=== PATIENT | male | born 1950 | race Caucasian/White ===

== ENCOUNTER 2016-09-17 08:55 | Emergency (ER) | payer MEDICARE, MEDICAID ==
[~2016-09-17 08:55] MED LIST: /ALEN70TA OR; /LAMO15TA OR; /LAMO20TA OR; /MOM400 PO; ACET50TA PO; AMLO10TA OR; BUSP10TA2 OR; CENTTAB16 PO; COLA50CA3 PO; HYDR25TA6 OR; LACOSAMIDE PO; LORA1TAB OR; MULTIVIT PO; OYST500T OR; PAXI20TA3 PO; POTA10TA7 PO; PROZ20CA OR; RISP4TAB33 PO; SPIR25TA2 OR; SYNT50TA PO; TOPI100T OR; XALATAN OU; [UNRECOGNIZED DRUG - CODE] TOP; [UNRECOGNIZED DRUG - OTHER] PO
[2016-09-17 09:42] LABS: BASO % 0.6 % (0.0-1.0); EOS # 0.2 K/mm3 (0.0-0.50); EOS % 3.4 % (0.0-3.0); LARGE UNSTAINED CELL # 0.2 K/mm3 (0.0-0.4); LARGE UNSTAINED CELL % 2.3 % (0.0-4.0); LYMPH % 25.3 % (24.0-44.0); MEAN CORPUSCULAR HEMOGLOBIN 28.6 pg (27.0-33.0); MEAN CORPUSCULAR HGB CONC 31.5 g/dl (32.0-36.5); MEAN CORPUSCULAR VOLUME 90.6 fl (80.0-96.0); MONO # 0.4 K/mm3 (0.0-0.8); MONO % 5.9 % (0.0-5.0); NEUTROPHILS # 4.6 K/mm3 (1.8-7.7); NEUTROPHILS % 62.4 % (36.0-66.0); PLATELET COUNT, AUTOMATED 220 k/mm3 (150-450); RED CELL DISTRIBUTION WIDTH 14.3 % (11.5-14.5); WHITE BLOOD COUNT 7.3 K/mm3 (4.0-10.0)
[2016-09-17] MEDS ORDERED: LORazepam 2 MG/ML VIAL (J2060) As Ordered ONE (09:47)
[2016-09-17 09:57] LABS: ANION GAP 10 MEQ/L (8-16); BLOOD UREA NITROGEN 14 MG/DL (7-18); CALCIUM LEVEL 8.5 MG/DL (8.8-10.2); CARBON DIOXIDE LEVEL 21 MEQ/L (21-32); CHLORIDE LEVEL 109 MEQ/L (98-107); CREATININE FOR GFR 0.78 MG/DL (0.70-1.30); GLOMERULAR FILTRATION RATE > 60.0 (>49); GLUCOSE, FASTING 91 MG/DL (80-110); POTASSIUM SERUM 3.7 MEQ/L (3.5-5.1); SODIUM LEVEL 140 MEQ/L (136-145)
--- NOTE | 2016-09-17 10:30 | REP ---
Head CT without contrast: History: Seizure activity. Comparison head CT study July 07, 2013. Findings: Digital lateral water filterer radiograph is unremarkable. Bone window settings demonstrate an intact bony calvarium. No intraorbital abnormality is seen. There is no CT evidence of significant paranasal sinus disease. Vascular calcification is noted in the carotid siphons and distal vertebral arteries. There is mild diffuse cerebral and moderate diffuse cerebellar atrophy again noted unchanged from the July 07, 2013 prior study. There is no evidence of intracranial hemorrhage. No extra-axial fluid collection, mass, infarct or midline shift is seen. Impression: Moderate cerebellar atrophy again noted. Vascular calcification. No acute intracranial abnormality. Signed by He Watson MD 09/17/2016 02:05 P
--- NOTE | 2016-09-17 11:00 | EDDOCDS ---
Physician Documentation [facility] Name: Paul Terrell Age: 66 yrs Sex: Male : 1950 Arrival Date: 09/17/2016 Time: 08:55 Bed 10 Private MD: Tony Busby NC Disposition: 09/17/16 10:49 Discharged to Home/Self Care. 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 - Condition is Stable. - Discharge Instructions: Seizure, Adult, [id number]. - Prescriptions for Tranxene T- Tab 3.75 mg Oral tablet - take 1 tablet by ORAL route 2 times per day; 10 tablet. - Medication Reconciliation, Local Pharmacy Hours form. - Follow up: Agnes Wright; When: 2 - 3 days; Reason: Further diagnostic work-up, Recheck today's complaints, Continuance of care. - Problem is an acute exacerbation. - Symptoms are unchanged. Historical: - Allergies: Risperdal (hypothermia); - Home Meds: 1. Lamictal 200 mg Oral tab 1 tab once daily 2. Lamictal 100 mg Oral tab 300 mg nightly 3. Topamax 100 mg Oral tab 3 tabs twice a day 4. Xalatan 0.005 % Opht drop 1 drop once daily 5. calcium lactate 500 mg Oral cap daily 6. Fosamax 70 mg Oral tab 1 tab once wkly 7. spironolactone 25 mg Oral tab 1 tab 2 times per day 8. Norvasc 10 mg Oral tab 1 tab once daily 9. potassium chloride 10 mEq Oral cpER 1 cap 2 times per day 10. Paxil 20 mg Oral tab 1 tab once daily 11. Synthroid 62.5mcg Oral once daily - PMHx: Seizure Disorder; Glaucoma; Osteoporosis; Hypertension; Depression; Hypothyroidism; - PSHx: Unable to obtain; - Social history: Smoking status: Patient uses tobacco products, light tobacco smoker. The patient speaks a little Trinidadian. - Family history: Not pertinent. - : The pt / caregiver states he / she is not on anticoagulants. Home medication list is obtained from the facility NOV. - Exposure Risk Screening:: None identified. Vital Signs: 09/17 09:07 BP 151 / 88 (auto/); pml 09:09 BP 151 / 88; Pulse 81; Resp 18; Temp 97.5(TE); Pulse Ox 98% on R/A; Height 4 ft. 6 in. ct3 (137.16 cm) (R); Pain 0/10; 09:09 Pulse 78 MON; Pulse Ox 97% ; pml 09:37 BP 142 / 76 (auto/); pml 09:38 Pulse 68 MON; Pulse Ox 99% ; pml 10:07 Pulse 72 MON; Pulse Ox 98% ; pml 10:07 BP 139 / 70 (auto/); pml 10:37 Pulse 72 MON; Pulse Ox 97% ; pml 10:37 BP 157 / 86 (auto/); pml 10:54 Pulse 65; Resp 18; Temp 97.6(TE); Pulse Ox 97% on R/A; ct3 MDM: 09:19 IV Saline Lock ordered. ml 09:19 Seizure Precautions ordered. ml 09:20 CBC with Diff Ordered. EDMS 09:20 MED Profile Ordered. EDMS 09:20 Lamotrigine,Lamictal Ordered. EDMS 09:40 CT Head Without Contrast Ordered. EDMS 09:44 LORazepam 0.5 mg IVP once ordered. btw 09:47 CBC with Diff Reviewed. btw 10:04 [facility] Payment Agreement was scanned into [employer] and attached to record. dm19 10:04 Financial registration complete. dm19 10:16 MED Profile Reviewed. btw Administered Medications: 09:49 Drug: LORazepam 0.5 mg [lorazepam 2 mg/mL injection solution (0.25 mL)] Route: IVP; pml Site: left hand; Signatures: Dispatcher [employer]Host EDNJ Osbaldo Hernandez MD MD ml Wolfenden, Brandon, PA PA btw Genet Santacruz RN RN pml McLear, Diane dm19 The chart was reviewed and I authenticate all verbal orders and agree with the evaluation and treatment provided.Attachments: 10:04 [facility] Payment Agreement dm19 MTDD
--- NOTE | 2016-09-17 11:00 | EDDOCDS ---
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 Adult Sepsis Screening: The patient does not have new or worsening altered mentation. Patient's respiratory rate is less than 22. Systolic blood pressure is greater than 100. Patient has a qSOFA score of 0- Negative Sepsis Screen. Suicide/Homicide risk assessment- the patient denies having any suicidal and/or homicidal ideations and does not present with any other emotional, behavioral or mental health complaints. Status: Patient is not a program services planner or dependent. Transition of care: patient was not received from another setting of care. 08:57 Acuity: JESSIE Level 3 pml 08:57 Method Of Arrival: Ambulance pml Triage Assessment: 09:13 General: Appears in no apparent distress, Behavior is appropriate for age, cooperative. pml Pain: Denies pain. The patient is triaged at the bedside. See Assessment in Nurses Notes section of ED record. Neurological: Level of Consciousness is awake, alert, Oriented to person, place, time. Neurological: Gill Box Fixer are equal bilaterally Facial symmetry appears normal, Pupils are PERRLA. Cardiovascular: Capillary refill < 3 seconds. Respiratory: Airway is patent Respiratory effort is even, unlabored. GI: Abdomen is non- distended. Derm: Skin is pink, warm & dry. Historical: - Allergies: Risperdal (hypothermia); - Home Meds: 1. Lamictal 200 mg Oral tab 1 tab once daily 2. Lamictal 100 mg Oral tab 300 mg nightly 3. Topamax 100 mg Oral tab 3 tabs twice a day 4. Xalatan 0.005 % Opht drop 1 drop once daily 5. calcium lactate 500 mg Oral cap daily 6. Fosamax 70 mg Oral tab 1 tab once wkly 7. spironolactone 25 mg Oral tab 1 tab 2 times per day 8. Norvasc 10 mg Oral tab 1 tab once daily 9. potassium chloride 10 mEq Oral cpER 1 cap 2 times per day 10. Paxil 20 mg Oral tab 1 tab once daily 11. Synthroid 62.5mcg Oral once daily - PMHx: Seizure Disorder; Glaucoma; Osteoporosis; Hypertension; Depression; Hypothyroidism; - PSHx: Unable to obtain; - Social history: Smoking status: Patient uses tobacco products, light tobacco smoker. The patient speaks a little Georgian. - Family history: Not pertinent. - : The pt / caregiver states he / she is not on anticoagulants. Home medication list is obtained from the facility MAR. - Exposure Risk Screening:: None identified. Screenin:14 Screening information is obtained from the patient. Fall risk: No risks identified. pml Assistance ADL's: requires no assistance with activities of daily living. Abuse/DV Screen: The patient / caregiver reports he/she is: not in a situation that causes fear, pain or injury. Nutritional screening: No deficits noted. Advance Directives: Currently, there is no health care proxy. home support is adequate. Assessment: 09:14 General: see triage note. pml 10:48 General: Appears in no apparent distress, comfortable, Behavior is appropriate for age, pml cooperative. Pain: Denies pain. Neurological: Level of Consciousness is awake, alert, Oriented to person, place, time. Cardiovascular: Capillary refill < 3 seconds. Respiratory: Airway is patent Respiratory effort is even, unlabored. GI: Abdomen is non- distended. Derm: Skin is pink, warm & dry. Vital Signs: 09:07 BP 151 / 88 (auto/); pml 09:09 BP 151 / 88; Pulse 81; Resp 18; Temp 97.5(TE); Pulse Ox 98% on R/A; Height 4 ft. 6 in. ct3 (137.16 cm) (R); Pain 0/10; 09:09 Pulse 78 MON; Pulse Ox 97% ; pml 09:37 BP 142 / 76 (auto/); pml 09:38 Pulse 68 MON; Pulse Ox 99% ; pml 10:07 Pulse 72 MON; Pulse Ox 98% ; pml 10:07 BP 139 / 70 (auto/); pml 10:37 Pulse 72 MON; Pulse Ox 97% ; pml 10:37 BP 157 / 86 (auto/); pml 10:54 Pulse 65; Resp 18; Temp 97.6(TE); Pulse Ox 97% on R/A; ct3 Vitals: 09:13 Log In Time N/A - ambulance arrival. pml ED Course: 08:56 Patient visited by Stefany Arellano PCA. ar3 08:56 Genet Santacruz RN is Primary Nurse. ar3 08:56 Tony Busby is Private Physician. ar3 08:56 Patient moved to Waiting ar3 08:56 Patient moved to 10 ar3 09:00 Triage Initiated pml 09:09 Accompanied by Caregiver, Patient has correct armband on for positive identification. ct3 Placed in gown. Bed in low position. Call light in reach. Side rails up X2. vascular ultrasound technician on. Pulse ox on. NIBP on. 09:11 Patient visited by Evita Sewell PCA. ct3 09:14 The patient / caregiver is instructed regarding the plan of care and ED course. Seizure pml precautions initiated. 09:14 Maintain field IV. Dressing intact. Good blood return noted. Site clean & dry. Gauge & pml site: 20g left hand. 09:15 Patient visited by Genet Santacruz RN. pml 09:34 Librado Will PA is PHCP. btw 09:34 Osbaldo Hernandez MD is Attending Physician. btw 09:34 Patient visited by Librado Will PA. btw 10:04 [facility] Payment Agreement was scanned into [employer] and attached to record. dm19 10:07 Patient visited by Evita Sewell PCA. ct3 10:11 Patient name changed from Paul\S\\S\Terrell\S\ to Paul\S\H\S\Terrell. EDMS 10:48 Agnes Wright is Referral Physician. btw 10:49 Patient visited by Genet Santacruz RN. pml 10:55 Patient visited by Evita Sewell PCA. ct3 10:56 CT Head Without Contrast Returned. EDMS 10:58 Discontinued lock intact, bleeding controlled, pressure dressing applied, No pml redness/swelling at site. No procedures done that require assistance. Administered Medications: 09:49 Drug: LORazepam 0.5 mg [lorazepam 2 mg/mL injection solution (0.25 mL)] Route: IVP; pml Site: left hand; Order Results: Lab Order: CBC with Diff; SPEC'M 09/17/16 09:29 Test: WHITE BLOOD COUNT; Value: 7.3; Range: 4.0-10.0; Units: K/mm3; Status: F Test: RED BLOOD COUNT; Value: 4.62; Range: 4.30-6.10; Units: M/mm3; Status: F Test: HEMOGLOBIN; Value: 13.2; Range: 14.0-18.0; Abnormal: Below low normal; Units: g/dl; Status: F Test: HEMATOCRIT; Value: 41.9; Range: 42.0-52.0; Abnormal: Below low normal; Units: %; Status: F Test: MEAN CORPUSCULAR VOLUME; Value: 90.6; Range: 80.0-96.0; Units: fl; Status: F Test: MEAN CORPUSCULAR HEMOGLOBIN; Value: 28.6; Range: 27.0-33.0; Units: pg; Status: F Test: MEAN CORPUSCULAR HGB CONC; Value: 31.5; Range: 32.0-36.5; Abnormal: Below low normal; Units: g/dl; Status: F Test: RED CELL DISTRIBUTION WIDTH; Value: 14.3; Range: 11.5-14.5; Units: %; Status: F Test: PLATELET COUNT, AUTOMATED; Value: 220; Range: 150-450; Units: k/mm3; Status: F Test: NEUTROPHILS %; Value: 62.4; Range: 36.0-66.0; Units: %; Status: F Test: LYMPH %; Value: 25.3; Range: 24.0-44.0; Units: %; Status: F Test: MONO %; Value: 5.9; Range: 0.0-5.0; Abnormal: Above high normal; Units: %; Status: F Test: EOS %; Value: 3.4; Range: 0.0-3.0; Abnormal: Above high normal; Units: %; Status: F Test: BASO %; Value: 0.6; Range: 0.0-1.0; Units: %; Status: F Test: LARGE UNSTAINED CELL %; Value: 2.3; Range: 0.0-4.0; Units: %; Status: F Test: NEUTROPHILS #; Value: 4.6; Range: 1.8-7.7; Units: K/mm3; Status: F Test: LYMPH #; Value: 2.0; Range: 1.5-4.5; Units: K/mm3; Status: F Test: MONO #; Value: 0.4; Range: 0.0-0.8; Units: K/mm3; Status: F Test: EOS #; Value: 0.2; Range: 0.0-0.50; Units: K/mm3; Status: F Test: BASO #; Value: 0.0; Range: 0.0-0.2; Units: K/mm3; Status: F Test: LARGE UNSTAINED CELL #; Value: 0.2; Range: 0.0-0.4; Units: K/mm3; Status: F Lab Order: MED Profile; SPEC'M 09/17/16 09:29 Test: GLUCOSE, FASTING; Value: 91; Range: 80-110; Units: MG/DL; Status: F Test: BLOOD UREA NITROGEN; Value: 14; Range: 7-18; Units: MG/DL; Status: F Test: CREATININE FOR GFR; Value: 0.78; Range: 0.70-1.30; Units: MG/DL; Status: F Test: GLOMERULAR FILTRATION RATE; Value: > 60.0; Range: >49; Status: F Test: SODIUM LEVEL; Value: 140; Range: 136-145; Units: MEQ/L; Status: F Test: POTASSIUM SERUM; Value: 3.7; Range: 3.5-5.1; Units: MEQ/L; Status: F Test: CHLORIDE LEVEL; Value: 109; Range: 98-107; Abnormal: Above high normal; Units: MEQ/L; Status: F Test: CARBON DIOXIDE LEVEL; Value: 21; Range: 21-32; Units: MEQ/L; Status: F Test: ANION GAP; Value: 10; Range: 8-16; Units: MEQ/L; Status: F Test: CALCIUM LEVEL; Value: 8.5; Range: 8.8-10.2; Abnormal: Below low normal; Units: MG/DL; Status: F Test Note: ; Units are mL/min/1.73 m2 Chronic Kidney Disease Staging per NKF: Stage I & II GFR >=60 Normal to Mildly Decreased Stage III GFR 30-59 Moderately Decreased Stage IV GFR 15-29 Severely Decreased Stage V GFR <15 Very Little GFR Left ESRD GFR <15 on POLICE LIAISON Radiology Order: CT Head Without Contrast Test: CT Head Without Contrast REASON FOR EXAMINATION: seizure activity with recent changes; Head CT without contrast:; ; History: Seizure activity.; ; Comparison head CT study July 07, 2013.; ; Findings: Digital lateral cavalry scout radiograph is unremarkable. Bone window; settings demonstrate an intact bony calvarium. No intraorbital abnormality is; seen. There is no CT evidence of significant paranasal sinus disease. Vascular; calcification is noted in the carotid siphons and distal vertebral arteries.; ; There is mild diffuse cerebral and moderate diffuse cerebellar atrophy again; noted unchanged from the July 07, 2013 prior study. There is no evidence of; intracranial hemorrhage. No extra-axial fluid collection, mass, infarct or; midline shift is seen.; ; Impression:; ; Moderate cerebellar atrophy again noted. Vascular calcification. No acute; intracranial abnormality.; ; ; ; ; Unreviewed; Outcome: 10:49 Discharge ordered by Provider. btw 10:58 Discharge Assessment: Patient awake, alert and oriented x 3. No cognitive and/or pml functional deficits noted. Patient verbalized understanding of disposition instructions. patient administered narcotics - yes. Pt provided with safe discharge. The following High Risk Discharge criteria are identified: None. Discharged to home ambulatory, with [facility] staff. Condition: good Condition: stable. Discharge instructions given to patient, Instructed on discharge instructions, follow up and referral plans. medication usage, Demonstrated understanding of instructions, medications, Pt was receptive of discharge instructions/ teaching. Prescriptions given X 1. No special radiology studies were completed. Property sent home with patient. 11:00 Patient left the ED. pml Signatures: Dispatcher [employer] EDMS Stefany Arellano, DELINQUENT ACCOUNT CLERK DELINQUENT ACCOUNT CLERK ar3 Librado Will PA PA btw Evita Sewell, DELINQUENT ACCOUNT CLERK DELINQUENT ACCOUNT CLERK ct3 Genet Santacruz RN RN Cata Palmer dm19 Corrections: (The following items were deleted from the chart) 09:11 09:09 BP 151 / 88; Pulse 81bpm; Resp 18bpm; Pulse Ox 98% RA; Temp 97.5F Temporal; Pain ct3 0/10; ct3 MTDD
--- NOTE | 2016-09-20 10:52 | EDDOCDS ---
Physician Documentation [facility] Name: Paul Terrell Age: 66 yrs Sex: Male : 1950 Arrival Date: 09/17/2016 Time: 08:55 Bed 10 Private MD: Tony Busby NC Disposition: 09/17/16 10:49 Discharged to Home/Self Care. 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 - Condition is Stable. - Discharge Instructions: Seizure, Adult, [id number]. - Prescriptions for Tranxene T- Tab 3.75 mg Oral tablet - take 1 tablet by ORAL route 2 times per day; 10 tablet. - Medication Reconciliation, Local Pharmacy Hours form. - Follow up: Agnes Wright; When: 2 - 3 days; Reason: Further diagnostic work-up, Recheck today's complaints, Continuance of care. - Problem is an acute exacerbation. - Symptoms are unchanged. Historical: - Allergies: Risperdal (hypothermia); - Home Meds: 1. Lamictal 200 mg Oral tab 1 tab once daily 2. Lamictal 100 mg Oral tab 300 mg nightly 3. Topamax 100 mg Oral tab 3 tabs twice a day 4. Xalatan 0.005 % Opht drop 1 drop once daily 5. calcium lactate 500 mg Oral cap daily 6. Fosamax 70 mg Oral tab 1 tab once wkly 7. spironolactone 25 mg Oral tab 1 tab 2 times per day 8. Norvasc 10 mg Oral tab 1 tab once daily 9. potassium chloride 10 mEq Oral cpER 1 cap 2 times per day 10. Paxil 20 mg Oral tab 1 tab once daily 11. Synthroid 62.5mcg Oral once daily - PMHx: Seizure Disorder; Glaucoma; Osteoporosis; Hypertension; Depression; Hypothyroidism; - PSHx: Unable to obtain; - Social history: Smoking status: Patient uses tobacco products, light tobacco smoker. The patient speaks a little Cypriot. - Family history: Not pertinent. - : The pt / caregiver states he / she is not on anticoagulants. Home medication list is obtained from the facility NOV. - Exposure Risk Screening:: None identified. Vital Signs: 09/17 09:07 BP 151 / 88 (auto/); pml 09:09 BP 151 / 88; Pulse 81; Resp 18; Temp 97.5(TE); Pulse Ox 98% on R/A; Height 4 ft. 6 in. ct3 (137.16 cm) (R); Pain 0/10; 09:09 Pulse 78 MON; Pulse Ox 97% ; pml 09:37 BP 142 / 76 (auto/); pml 09:38 Pulse 68 MON; Pulse Ox 99% ; pml 10:07 Pulse 72 MON; Pulse Ox 98% ; pml 10:07 BP 139 / 70 (auto/); pml 10:37 Pulse 72 MON; Pulse Ox 97% ; pml 10:37 BP 157 / 86 (auto/); pml 10:54 Pulse 65; Resp 18; Temp 97.6(TE); Pulse Ox 97% on R/A; ct3 MDM: 09:19 IV Saline Lock ordered. ml 09:19 Seizure Precautions ordered. ml 09:20 CBC with Diff Ordered. EDMS 09:20 MED Profile Ordered. EDMS 09:20 Lamotrigine,Lamictal Ordered. EDMS 09:40 CT Head Without Contrast Ordered. EDMS 09:44 LORazepam 0.5 mg IVP once ordered. btw 09:47 CBC with Diff Reviewed. btw 10:04 [facility] Payment Agreement was scanned into [employer] and attached to record. dm19 10:04 Financial registration complete. dm19 10:16 MED Profile Reviewed. btw 11:48 T-Sheet-- Draft Copy was scanned into [employer] and attached to record. seh 14:13 PCR was scanned into [employer] and attached to record. gb Administered Medications: 09:49 Drug: LORazepam 0.5 mg [lorazepam 2 mg/mL injection solution (0.25 mL)] Route: IVP; pml Site: left hand; Signatures: Dispatcher [employer] EDMS Osbaldo Hernandez MD MD ml Barnhardt, Gloria, Reg Reg Librado Harris PA PA btw Genet Santacruz RN RN pml Hoffert, Sarah seh McLear, Diane dm19 The chart was reviewed and I authenticate all verbal orders and agree with the evaluation and treatment provided.Attachments: 10:04 [facility] Payment Agreement dm19 11:48 T-Sheet-- Draft Copy se Chart Complete MTDD
--- NOTE | 2016-09-20 10:52 | EDDOCDS ---
Physician Documentation [facility] Name: Paul Terrell Age: 66 yrs Sex: Male : 1950 Arrival Date: 09/17/2016 Time: 08:55 Bed 10 Private MD: Tony Busby NC Disposition: 09/17/16 10:49 Discharged to Home/Self Care. 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 - Condition is Stable. - Discharge Instructions: Seizure, Adult, [id number]. - Prescriptions for Tranxene T- Tab 3.75 mg Oral tablet - take 1 tablet by ORAL route 2 times per day; 10 tablet. - Medication Reconciliation, Local Pharmacy Hours form. - Follow up: Agnes Wright; When: 2 - 3 days; Reason: Further diagnostic work-up, Recheck today's complaints, Continuance of care. - Problem is an acute exacerbation. - Symptoms are unchanged. Historical: - Allergies: Risperdal (hypothermia); - Home Meds: 1. Lamictal 200 mg Oral tab 1 tab once daily 2. Lamictal 100 mg Oral tab 300 mg nightly 3. Topamax 100 mg Oral tab 3 tabs twice a day 4. Xalatan 0.005 % Opht drop 1 drop once daily 5. calcium lactate 500 mg Oral cap daily 6. Fosamax 70 mg Oral tab 1 tab once wkly 7. spironolactone 25 mg Oral tab 1 tab 2 times per day 8. Norvasc 10 mg Oral tab 1 tab once daily 9. potassium chloride 10 mEq Oral cpER 1 cap 2 times per day 10. Paxil 20 mg Oral tab 1 tab once daily 11. Synthroid 62.5mcg Oral once daily - PMHx: Seizure Disorder; Glaucoma; Osteoporosis; Hypertension; Depression; Hypothyroidism; - PSHx: Unable to obtain; - Social history: Smoking status: Patient uses tobacco products, light tobacco smoker. The patient speaks a little Italian. - Family history: Not pertinent. - : The pt / caregiver states he / she is not on anticoagulants. Home medication list is obtained from the facility NOV. - Exposure Risk Screening:: None identified. Vital Signs: 09/17 09:07 BP 151 / 88 (auto/); pml 09:09 BP 151 / 88; Pulse 81; Resp 18; Temp 97.5(TE); Pulse Ox 98% on R/A; Height 4 ft. 6 in. ct3 (137.16 cm) (R); Pain 0/10; 09:09 Pulse 78 MON; Pulse Ox 97% ; pml 09:37 BP 142 / 76 (auto/); pml 09:38 Pulse 68 MON; Pulse Ox 99% ; pml 10:07 Pulse 72 MON; Pulse Ox 98% ; pml 10:07 BP 139 / 70 (auto/); pml 10:37 Pulse 72 MON; Pulse Ox 97% ; pml 10:37 BP 157 / 86 (auto/); pml 10:54 Pulse 65; Resp 18; Temp 97.6(TE); Pulse Ox 97% on R/A; ct3 MDM: 09:19 IV Saline Lock ordered. ml 09:19 Seizure Precautions ordered. ml 09:20 CBC with Diff Ordered. EDMS 09:20 MED Profile Ordered. EDMS 09:20 Lamotrigine,Lamictal Ordered. EDMS 09:40 CT Head Without Contrast Ordered. EDMS 09:44 LORazepam 0.5 mg IVP once ordered. btw 09:47 CBC with Diff Reviewed. btw 10:04 [facility] Payment Agreement was scanned into [employer] and attached to record. dm19 10:04 Financial registration complete. dm19 10:16 MED Profile Reviewed. btw 11:48 T-Sheet-- Draft Copy was scanned into [employer] and attached to record. seh 14:13 PCR was scanned into [employer] and attached to record. gb Administered Medications: 09:49 Drug: LORazepam 0.5 mg [lorazepam 2 mg/mL injection solution (0.25 mL)] Route: IVP; pml Site: left hand; Signatures: Dispatcher [employer] EDMS Osbaldo Hernandez MD MD ml Barnhardt, Gloria, Reg Reg Librado Harris PA PA btw Genet Santacruz RN RN pml Hoffert, Sarah seh McLear, Diane dm19 The chart was reviewed and I authenticate all verbal orders and agree with the evaluation and treatment provided.Attachments: 10:04 [facility] Payment Agreement dm19 11:48 T-Sheet-- Draft Copy se Chart Complete MTDD
--- NOTE | 2016-09-20 10:52 | EDDOCDS ---
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 Adult Sepsis Screening: The patient does not have new or worsening altered mentation. Patient's respiratory rate is less than 22. Systolic blood pressure is greater than 100. Patient has a qSOFA score of 0- Negative Sepsis Screen. Suicide/Homicide risk assessment- the patient denies having any suicidal and/or homicidal ideations and does not present with any other emotional, behavioral or mental health complaints. Status: Patient is not a manager administrative services or dependent. Transition of care: patient was not received from another setting of care. 08:57 Acuity: JESSIE Level 3 pml 08:57 Method Of Arrival: Ambulance pml Triage Assessment: 09:13 General: Appears in no apparent distress, Behavior is appropriate for age, cooperative. pml Pain: Denies pain. The patient is triaged at the bedside. See Assessment in Nurses Notes section of ED record. Neurological: Level of Consciousness is awake, alert, Oriented to person, place, time. Neurological: [employer] Exchange Administrator are equal bilaterally Facial symmetry appears normal, Pupils are PERRLA. Cardiovascular: Capillary refill < 3 seconds. Respiratory: Airway is patent Respiratory effort is even, unlabored. GI: Abdomen is non- distended. Derm: Skin is pink, warm & dry. Historical: - Allergies: Risperdal (hypothermia); - Home Meds: 1. Lamictal 200 mg Oral tab 1 tab once daily 2. Lamictal 100 mg Oral tab 300 mg nightly 3. Topamax 100 mg Oral tab 3 tabs twice a day 4. Xalatan 0.005 % Opht drop 1 drop once daily 5. calcium lactate 500 mg Oral cap daily 6. Fosamax 70 mg Oral tab 1 tab once wkly 7. spironolactone 25 mg Oral tab 1 tab 2 times per day 8. Norvasc 10 mg Oral tab 1 tab once daily 9. potassium chloride 10 mEq Oral cpER 1 cap 2 times per day 10. Paxil 20 mg Oral tab 1 tab once daily 11. Synthroid 62.5mcg Oral once daily - PMHx: Seizure Disorder; Glaucoma; Osteoporosis; Hypertension; Depression; Hypothyroidism; - PSHx: Unable to obtain; - Social history: Smoking status: Patient uses tobacco products, light tobacco smoker. The patient speaks a little Romansh. - Family history: Not pertinent. - : The pt / caregiver states he / she is not on anticoagulants. Home medication list is obtained from the facility MAR. - Exposure Risk Screening:: None identified. Screenin:14 Screening information is obtained from the patient. Fall risk: No risks identified. pml Assistance ADL's: requires no assistance with activities of daily living. Abuse/DV Screen: The patient / caregiver reports he/she is: not in a situation that causes fear, pain or injury. Nutritional screening: No deficits noted. Advance Directives: Currently, there is no health care proxy. home support is adequate. Assessment: 09:14 General: see triage note. pml 10:48 General: Appears in no apparent distress, comfortable, Behavior is appropriate for age, pml cooperative. Pain: Denies pain. Neurological: Level of Consciousness is awake, alert, Oriented to person, place, time. Cardiovascular: Capillary refill < 3 seconds. Respiratory: Airway is patent Respiratory effort is even, unlabored. GI: Abdomen is non- distended. Derm: Skin is pink, warm & dry. Vital Signs: 09:07 BP 151 / 88 (auto/); pml 09:09 BP 151 / 88; Pulse 81; Resp 18; Temp 97.5(TE); Pulse Ox 98% on R/A; Height 4 ft. 6 in. ct3 (137.16 cm) (R); Pain 0/10; 09:09 Pulse 78 MON; Pulse Ox 97% ; pml 09:37 BP 142 / 76 (auto/); pml 09:38 Pulse 68 MON; Pulse Ox 99% ; pml 10:07 Pulse 72 MON; Pulse Ox 98% ; pml 10:07 BP 139 / 70 (auto/); pml 10:37 Pulse 72 MON; Pulse Ox 97% ; pml 10:37 BP 157 / 86 (auto/); pml 10:54 Pulse 65; Resp 18; Temp 97.6(TE); Pulse Ox 97% on R/A; ct3 Vitals: 09:13 Log In Time N/A - ambulance arrival. pml ED Course: 08:56 Patient visited by Stefany Arellano PCA. ar3 08:56 Genet Santacruz RN is Primary Nurse. ar3 08:56 Tony Busby is Private Physician. ar3 08:56 Patient moved to Waiting ar3 08:56 Patient moved to 10 ar3 09:00 Triage Initiated pml 09:09 Accompanied by Caregiver, Patient has correct armband on for positive identification. ct3 Placed in gown. Bed in low position. Call light in reach. Side rails up X2. lunchroom monitor on. Pulse ox on. NIBP on. 09:11 Patient visited by Evita Sewell PCA. ct3 09:14 The patient / caregiver is instructed regarding the plan of care and ED course. Seizure pml precautions initiated. 09:14 Maintain field IV. Dressing intact. Good blood return noted. Site clean & dry. Gauge & pml site: 20g left hand. 09:15 Patient visited by Genet Santacruz RN. pml 09:34 Librado Will PA is PHCP. btw 09:34 Osbaldo Hernandez MD is Attending Physician. btw 09:34 Patient visited by Librado Will PA. btw 10:04 [facility] Payment Agreement was scanned into [employer] and attached to record. [id number] 10:07 Patient visited by Evita Sewell PCA. ct3 10:11 Patient name changed from Paul\S\\S\Terrell\S\ to Paul\S\H\S\Terrell. EDMS 10:48 Agnes Wright is Referral Physician. btw 10:49 Patient visited by Genet Santacruz RN. pml 10:55 Patient visited by Evita Sewell PCA. ct3 10:56 CT Head Without Contrast Returned. EDMS 10:58 Discontinued lock intact, bleeding controlled, pressure dressing applied, No pml redness/swelling at site. No procedures done that require assistance. 11:48 T-Sheet-- Draft Copy was scanned into [employer] and attached to record. seh 14:13 PCR was scanned into [employer] and attached to record. gb Administered Medications: 09:49 Drug: LORazepam 0.5 mg [lorazepam 2 mg/mL injection solution (0.25 mL)] Route: IVP; pml Site: left hand; Order Results: Lab Order: CBC with Diff; SPEC'M 09/17/16 09:29 Test: WHITE BLOOD COUNT; Value: 7.3; Range: 4.0-10.0; Units: K/mm3; Status: F Test: RED BLOOD COUNT; Value: 4.62; Range: 4.30-6.10; Units: M/mm3; Status: F Test: HEMOGLOBIN; Value: 13.2; Range: 14.0-18.0; Abnormal: Below low normal; Units: g/dl; Status: F Test: HEMATOCRIT; Value: 41.9; Range: 42.0-52.0; Abnormal: Below low normal; Units: %; Status: F Test: MEAN CORPUSCULAR VOLUME; Value: 90.6; Range: 80.0-96.0; Units: fl; Status: F Test: MEAN CORPUSCULAR HEMOGLOBIN; Value: 28.6; Range: 27.0-33.0; Units: pg; Status: F Test: MEAN CORPUSCULAR HGB CONC; Value: 31.5; Range: 32.0-36.5; Abnormal: Below low normal; Units: g/dl; Status: F Test: RED CELL DISTRIBUTION WIDTH; Value: 14.3; Range: 11.5-14.5; Units: %; Status: F Test: PLATELET COUNT, AUTOMATED; Value: 220; Range: 150-450; Units: k/mm3; Status: F Test: NEUTROPHILS %; Value: 62.4; Range: 36.0-66.0; Units: %; Status: F Test: LYMPH %; Value: 25.3; Range: 24.0-44.0; Units: %; Status: F Test: MONO %; Value: 5.9; Range: 0.0-5.0; Abnormal: Above high normal; Units: %; Status: F Test: EOS %; Value: 3.4; Range: 0.0-3.0; Abnormal: Above high normal; Units: %; Status: F Test: BASO %; Value: 0.6; Range: 0.0-1.0; Units: %; Status: F Test: LARGE UNSTAINED CELL %; Value: 2.3; Range: 0.0-4.0; Units: %; Status: F Test: NEUTROPHILS #; Value: 4.6; Range: 1.8-7.7; Units: K/mm3; Status: F Test: LYMPH #; Value: 2.0; Range: 1.5-4.5; Units: K/mm3; Status: F Test: MONO #; Value: 0.4; Range: 0.0-0.8; Units: K/mm3; Status: F Test: EOS #; Value: 0.2; Range: 0.0-0.50; Units: K/mm3; Status: F Test: BASO #; Value: 0.0; Range: 0.0-0.2; Units: K/mm3; Status: F Test: LARGE UNSTAINED CELL #; Value: 0.2; Range: 0.0-0.4; Units: K/mm3; Status: F Lab Order: MED Profile; SPEC'M 09/17/16 09:29 Test: GLUCOSE, FASTING; Value: 91; Range: 80-110; Units: MG/DL; Status: F Test: BLOOD UREA NITROGEN; Value: 14; Range: 7-18; Units: MG/DL; Status: F Test: CREATININE FOR GFR; Value: 0.78; Range: 0.70-1.30; Units: MG/DL; Status: F Test: GLOMERULAR FILTRATION RATE; Value: > 60.0; Range: >49; Status: F Test: SODIUM LEVEL; Value: 140; Range: 136-145; Units: MEQ/L; Status: F Test: POTASSIUM SERUM; Value: 3.7; Range: 3.5-5.1; Units: MEQ/L; Status: F Test: CHLORIDE LEVEL; Value: 109; Range: 98-107; Abnormal: Above high normal; Units: MEQ/L; Status: F Test: CARBON DIOXIDE LEVEL; Value: 21; Range: 21-32; Units: MEQ/L; Status: F Test: ANION GAP; Value: 10; Range: 8-16; Units: MEQ/L; Status: F Test: CALCIUM LEVEL; Value: 8.5; Range: 8.8-10.2; Abnormal: Below low normal; Units: MG/DL; Status: F Test Note: ; Units are mL/min/1.73 m2 Chronic Kidney Disease Staging per NKF: Stage I & II GFR >=60 Normal to Mildly Decreased Stage III GFR 30-59 Moderately Decreased Stage IV GFR 15-29 Severely Decreased Stage V GFR <15 Very Little GFR Left ESRD GFR <15 on INLAYER SILVER Radiology Order: CT Head Without Contrast Test: CT Head Without Contrast REASON FOR EXAMINATION: seizure activity with recent changes; Head CT without contrast:; ; History: Seizure activity.; ; Comparison head CT study July 07, 2013.; ; Findings: Digital lateral research nurse practitioner radiograph is unremarkable. Bone window; settings demonstrate an intact bony calvarium. No intraorbital abnormality is; seen. There is no CT evidence of significant paranasal sinus disease. Vascular; calcification is noted in the carotid siphons and distal vertebral arteries.; ; There is mild diffuse cerebral and moderate diffuse cerebellar atrophy again; noted unchanged from the July 07, 2013 prior study. There is no evidence of; intracranial hemorrhage. No extra-axial fluid collection, mass, infarct or; midline shift is seen.; ; Impression:; ; Moderate cerebellar atrophy again noted. Vascular calcification. No acute; intracranial abnormality.; ; ; Signed by; He Watson MD 09/17/2016 02:05 P; Outcome: 10:49 Discharge ordered by Provider. btw 10:58 Discharge Assessment: Patient awake, alert and oriented x 3. No cognitive and/or pml functional deficits noted. Patient verbalized understanding of disposition instructions. patient administered narcotics - yes. Pt provided with safe discharge. The following High Risk Discharge criteria are identified: None. Discharged to home ambulatory, with [facility] staff. Condition: good Condition: stable. Discharge instructions given to patient, Instructed on discharge instructions, follow up and referral plans. medication usage, Demonstrated understanding of instructions, medications, Pt was receptive of discharge instructions/ teaching. Prescriptions given X 1. No special radiology studies were completed. Property sent home with patient. 11:00 Patient left the ED. pml Signatures: Dispatcher [employer] EDMS Candice Coronado, Reg Reg gb Stefany Arellano, WARDROBE CUSTODIAN WARDROBE CUSTODIAN ar3 Librado Will PA PA btw Evita Sewell, WARDROBE CUSTODIAN WARDROBE CUSTODIAN ct3 Addison,Genet,RN RN Araceli Mobley Diane [id number] Corrections: (The following items were deleted from the chart) :11 09:09 BP 151 / 88; Pulse 81bpm; Resp 18bpm; Pulse Ox 98% RA; Temp 97.5F Temporal; Pain ct3 0/10; ct3 Chart Complete MTDD
== END 2016-09-17 11:00 | disposition home or self-care (01) ==
LOC: M ED 08:55
DX: G40.209 Localization-related (focal) (partial) symptomatic epilepsy and epileptic syndromes with complex partial seizures, not intractable, without status epilepticus (principal); I10 Essential (primary) hypertension; F32.9 Major depressive disorder, single episode, unspecified; E03.9 Hypothyroidism, unspecified; M81.0 Age-related osteoporosis without current pathological fracture; H40.9 Unspecified glaucoma; Z79.899 Other long term (current) drug therapy; Z88.8 Allergy status to other drugs, medicaments and biological substances; F17.210 Nicotine dependence, cigarettes, uncomplicated
CPT/HCPCS: 70450; 80048; 80175; 85025; 96374; 99284; J2060

== ENCOUNTER → 2016-11-28 | Outpatient (CLI) | payer MEDICARE, MEDICAID ==
[2016-11-28 13:08] LABS: BASO % 0.4 % (0.0-1.0); EOS # 0.3 K/mm3 (0.0-0.50); EOS % 4.3 % (0.0-3.0); LARGE UNSTAINED CELL # 0.1 K/mm3 (0.0-0.4); LARGE UNSTAINED CELL % 1.6 % (0.0-4.0); LYMPH # 2.4 K/mm3 (1.5-4.5); LYMPH % 30.8 % (24.0-44.0); MEAN CORPUSCULAR HEMOGLOBIN 29.8 pg (27.0-33.0); MEAN CORPUSCULAR HGB CONC 33.1 g/dl (32.0-36.5); MEAN CORPUSCULAR VOLUME 90.1 fl (80.0-96.0); MONO # 0.6 K/mm3 (0.0-0.8); MONO % 7.8 % (0.0-5.0); PLATELET COUNT, AUTOMATED 230 k/mm3 (150-450); RED CELL DISTRIBUTION WIDTH 13.4 % (11.5-14.5); WHITE BLOOD COUNT 7.3 K/mm3 (4.0-10.0)
[2016-11-28 13:42] LABS: ALBUMIN 3.6 GM/DL (3.2-5.2); ALBUMIN/GLOBULIN RATIO 1.38 (1.00-1.93); ALKALINE PHOSPHATASE 102 U/L (45-117); ALT/SGPT 16 U/L (12-78); ANION GAP 7 MEQ/L (8-16); AST/SGOT 13 U/L (15-37); BILIRUBIN,TOTAL 0.2 MG/DL (0.2-1.0); BLOOD UREA NITROGEN 19 MG/DL (7-18); CALCIUM LEVEL 8.5 MG/DL (8.8-10.2); CARBON DIOXIDE LEVEL 25 MEQ/L (21-32); CHLORIDE LEVEL 108 MEQ/L (98-107); CREATININE FOR GFR 0.81 MG/DL (0.70-1.30); FREE T4 1.06 NG/DL (0.76-1.46); GLOMERULAR FILTRATION RATE > 60.0 (>49); GLUCOSE, FASTING 97 MG/DL (80-110); POTASSIUM SERUM 3.9 MEQ/L (3.5-5.1); SODIUM LEVEL 140 MEQ/L (136-145); TOTAL PROTEIN 6.2 GM/DL (6.4-8.2)
== END ==
LOC: M WUC 08:46
PROVIDERS: ATTEND Nurse Practitioner Family
DX: E03.9 Hypothyroidism, unspecified (principal); I10 Essential (primary) hypertension

== ENCOUNTER → 2016-12-06 | Outpatient (CLI) | payer MEDICARE, MEDICAID ==
[2016-12-09 00:07] LABS: TOPIRAMATE LEVEL 15.8 ug/mL (2.0-25.0)
== END ==
LOC: M WUC 16:27
PROVIDERS: ATTEND Physician Assistant Medical
DX: Z51.81 Encounter for therapeutic drug level monitoring (principal); Z79.899 Other long term (current) drug therapy; R56.9 Unspecified convulsions

== ENCOUNTER → 2017-03-29 | Outpatient (CLI) | payer MEDICARE, MEDICAID ==
[2017-03-31 14:17] LABS: TOPIRAMATE LEVEL 12.4 ug/mL (2.0-25.0)
== END ==
LOC: M WUC 08:36
PROVIDERS: ATTEND Physician Assistant Medical
DX: G40.909 Epilepsy, unspecified, not intractable, without status epilepticus (principal)

== ENCOUNTER → 2017-11-20 | Outpatient (REF) | payer MEDICARE, MEDICAID ==
[2017-11-20 13:27] LABS: TOTAL 25(OH) VITAMIN D 22.6 NG/ML (30.0-100.0)
[2017-11-20 13:28] LABS: FOLATE 21.3 NG/ML; VITAMIN B12 LEVEL 724 PG/ML
[2017-11-22 00:11] LABS: LAMOTRIGINE (LAMICTAL) 3.7 ug/mL (2.0-20.0)
[2017-11-22 00:11] LABS: TOPIRAMATE LEVEL 14.5 ug/mL (2.0-25.0)
== END ==
LOC: M LABDRWAD 12:43
DX: R53.83 Other fatigue (principal); R56.9 Unspecified convulsions
CPT/HCPCS: 82746

== ENCOUNTER 2017-12-21 18:59 | Inpatient (IN) | payer MEDICARE, MEDICAID ==
[2017-12-21] MEDS: amLODIPine 5 MG TAB PO (20:08)
[2017-12-21] MEDS: SPIRONOLACTONE 25 MG TAB PO ×2 (20:08→21:00)
[2017-12-21] MEDS: IPRATROPIUM 0.5MG/ALBUTEROL 2.5MG INH SOL UD 3ML (DUONEB)(J7620) NEB (20:15)
[2017-12-21 21:01] LABS: BASO % 0.1 % (0.0-1.0); EOS % 0.1 % (0.0-3.0); HEMATOCRIT 37.1 % (42.0-52.0); HEMOGLOBIN 12.4 g/dl (13.5-17.5); IMMATURE GRANULOCYTE % 0.5 % (0-3.0); LYMPH # 2.2 10^3/uL (1.5-4.5); LYMPH % 13.4 % (24.0-44.0); MEAN CORPUSCULAR HEMOGLOBIN 27.9 pg (27.0-33.0); MEAN CORPUSCULAR HGB CONC 33.4 g/dl (32.0-36.5); MEAN CORPUSCULAR VOLUME 83.6 fl (80.0-96.0); MONO # 1.6 10^3/uL (0.0-0.8); MONO % 9.7 % (0.0-5.0); NEUTROPHILS # 12.6 10^3/uL (1.8-7.7); NEUTROPHILS % 76.2 % (36.0-66.0); PLATELET COUNT, AUTOMATED 260 10^3/uL (150-450); RED BLOOD COUNT 4.44 10^6/uL (4.30-6.10); RED CELL DISTRIBUTION WIDTH 13.5 % (11.5-14.5); WHITE BLOOD COUNT 16.5 10^3/uL (4.0-10.0)
[2017-12-21 21:27] LABS: ABG BASE EXCESS -3.4 (-2.0-2.0); ABG HCO3 19.6 MEQ/L (22.0-26.0); ABG O2 SATURATION 91.4 % (95.0-99.0); ABG PARTIAL PRESSURE CO2 29.6 mmHg (35.0-45.0); ABG PARTIAL PRESSURE O2 59.1 mmHg (75.0-100.0); ABG STANDARD HCO3 21.5 MEQ/L (22.0-26.0); ABG TOTAL CO2 20.5 MEQ/L (23.0-31.0); ABG pH (ARTERIAL) 7.438 UNITS (7.350-7.450)
[2017-12-21 21:30] LABS: LACTIC ACID SEPSIS PROTOCOL 1.2 MMOL/L (0.4-2.0)
[2017-12-21 21:33] LABS: ALBUMIN 3.7 GM/DL (3.2-5.2); ALBUMIN/GLOBULIN RATIO 1.06 (1.00-1.93); ALKALINE PHOSPHATASE 131 U/L (45-117); ALT/SGPT 25 U/L (12-78); ANION GAP 9 MEQ/L (8-16); AST/SGOT 31 U/L (7-37); BILIRUBIN,TOTAL 0.3 MG/DL (0.2-1.0); BLOOD UREA NITROGEN 12 MG/DL (7-18); CALCIUM LEVEL 8.8 MG/DL (8.8-10.2); CARBON DIOXIDE LEVEL 21 MEQ/L (21-32); CHLORIDE LEVEL 101 MEQ/L (98-107); GLOMERULAR FILTRATION RATE > 60.0 (>49); GLUCOSE, FASTING 109 MG/DL (70-100); POTASSIUM SERUM 4.1 MEQ/L (3.5-5.1); SODIUM LEVEL 131 MEQ/L (136-145); TOTAL PROTEIN 7.2 GM/DL (6.4-8.2)
[2017-12-21] MEDS: LABETALOL HCL 100 MG/20 ML VIAL IV (21:58)
[2017-12-21] MEDS: NS 1,000 ML IV (22:23)
[2017-12-21] MEDS: methylPREDNISolone INJ 125 MG/2 ML VIAL (J2930) IV (22:23)
[2017-12-21] MEDS ORDERED: IPRATROPIUM 0.5MG/ALBUTEROL 2.5MG INH SOL UD 3ML (DUONEB)(J7620) NEB (22:30)
[2017-12-21] MEDS ORDERED: ACETAMINOPHEN TAB 650MG DOSE (2X325MG) PO (22:30)
[2017-12-21] MEDS: NICOTINE 21MG/24HR 1 EA TRANSDERMAL TD (22:47)
[2017-12-21] MEDS: PIPERACILLIN/TAZOBACTAM SOD 2.25 GM in D5W MINI-BAG PLUS 50 ML IV (22:47)
[2017-12-21] MEDS: hydrALAZINE INJ 20 MG/ML VIAL IV (22:48)
[2017-12-21 23:03] LABS: CK-MB VALUE MASS 3.4 NG/ML (<3.6); CPK CREATINE PHOSPHOKINASE 181 U/L (39-308); MB/CK RELATIVE INDEX 1.87 (< OR =4); TROPONIN I < 0.02 NG/ML (< 0.10)
[2017-12-21] MEDS ORDERED: LORazepam 2 MG/ML VIAL (J2060) As Ordered (23:30)
[2017-12-22] MEDS ORDERED: LORazepam 2 MG/ML VIAL (J2060) IV
[2017-12-22] MEDS: TOPIRAMATE (TopAMAX) 100 MG TAB PO ×3 (01:47→21:12)
[2017-12-22] MEDS: lamoTRIgine 100MG TAB PO ×3 (01:47→21:12)
[2017-12-22] MEDS: LATANOPROST 0.005% OPHTH SOLN 2.5 ML OU ×2 (01:48→21:14)
[2017-12-22] MEDS: THERAPEUTIC BATH LOTION 240 ML BTL EXT ×2 (01:48→21:14)
[2017-12-22] MEDS: CLORAZEPATE 3.75 MG TAB PO ×6 (01:48→21:12)
[2017-12-22] MEDS: NS 1,000 ML IV ×2 (01:48→10:58)
[2017-12-22] MEDS: VANCOMYCIN HCL 1,000 MG, VIAL MATE ADAPTER 1 EACH in D5W 250 ML IV ×3 (01:49→21:11)
[2017-12-22] MEDS: IPRATROPIUM 0.5MG/ALBUTEROL 2.5MG INH SOL UD 3ML (DUONEB)(J7620) NEB ×4 (02:12→20:26)
[2017-12-22] MEDS: PIPERACILLIN/TAZOBACTAM SOD 4.5 GM in D5W MINI-BAG PLUS 50 ML IV ×4 (05:14→22:55)
[2017-12-22] MEDS: hydrALAZINE INJ 20 MG/ML VIAL IV (05:14)
[2017-12-22 05:37] LABS: BASO % 0.1 % (0.0-1.0); HEMATOCRIT 35.1 % (42.0-52.0); IMMATURE GRANULOCYTE % 0.6 % (0-3.0); LYMPH # 0.8 10^3/uL (1.5-4.5); LYMPH % 5.7 % (24.0-44.0); MEAN CORPUSCULAR HEMOGLOBIN 28.1 pg (27.0-33.0); MEAN CORPUSCULAR HGB CONC 34.2 g/dl (32.0-36.5); MEAN CORPUSCULAR VOLUME 82.2 fl (80.0-96.0); MONO # 0.6 10^3/uL (0.0-0.8); MONO % 4.5 % (0.0-5.0); NEUTROPHILS # 12.5 10^3/uL (1.8-7.7); NEUTROPHILS % 89.1 % (36.0-66.0); PLATELET COUNT, AUTOMATED 242 10^3/uL (150-450); RED BLOOD COUNT 4.27 10^6/uL (4.30-6.10); RED CELL DISTRIBUTION WIDTH 13.6 % (11.5-14.5)
[2017-12-22 06:00] LABS: ANION GAP 9 MEQ/L (8-16); BLOOD UREA NITROGEN 9 MG/DL (7-18); CALCIUM LEVEL 8.5 MG/DL (8.8-10.2); CARBON DIOXIDE LEVEL 20 MEQ/L (21-32); CHLORIDE LEVEL 105 MEQ/L (98-107); CPK CREATINE PHOSPHOKINASE 150 U/L (39-308); CREATININE FOR GFR 0.64 MG/DL (0.70-1.30); GLOMERULAR FILTRATION RATE > 60.0 (>49); GLUCOSE, FASTING 140 MG/DL (70-100); POTASSIUM SERUM 3.1 MEQ/L (3.5-5.1); SODIUM LEVEL 134 MEQ/L (136-145); TROPONIN I < 0.02 NG/ML (< 0.10)
[2017-12-22 06:01] LABS: CK-MB VALUE MASS 3.7 NG/ML (<3.6); MB/CK RELATIVE INDEX 2.46 (< OR =4)
[2017-12-22] MEDS: LEVOTHYROXINE 62.5MCG PER 1/2 TAB (0.0625MG) PO (08:54)
[2017-12-22] MEDS: PARoxetine 10MG TABLET PO (08:54)
[2017-12-22] MEDS: SPIRONOLACTONE 25 MG TAB PO ×2 (08:55→21:13)
[2017-12-22] MEDS: amLODIPine 10 MG TAB PO (08:56)
[2017-12-22] MEDS: ENOXAPARIN 40 MG/0.4 ML SYRINGE (J1650) SC (08:56)
[2017-12-22] MEDS: POTASSIUM CHLORIDE 10 MEQ SR TABLET PO (10:58)
[2017-12-22] MEDS: **hydrALAZINE HCL** 25 MG TAB PO ×2 (14:00→21:13)
[2017-12-22 14:16] LABS: CK-MB VALUE MASS 4.8 NG/ML (<3.6); CPK CREATINE PHOSPHOKINASE 170 U/L (39-308); MB/CK RELATIVE INDEX 2.82 (< OR =4); TROPONIN I 0.02 NG/ML (< 0.10)
[2017-12-23] MEDS: IPRATROPIUM 0.5MG/ALBUTEROL 2.5MG INH SOL UD 3ML (DUONEB)(J7620) NEB ×4 (02:00→20:14)
[2017-12-23] MEDS: PIPERACILLIN/TAZOBACTAM SOD 4.5 GM in D5W MINI-BAG PLUS 50 ML IV ×4 (04:03→22:18)
[2017-12-23] MEDS: **hydrALAZINE HCL** 25 MG TAB PO ×3 (05:38→21:39)
[2017-12-23 06:28] LABS: BASO % 0.1 % (0.0-1.0); EOS % 0.1 % (0.0-3.0); HEMATOCRIT 36.3 % (42.0-52.0); HEMOGLOBIN 12.1 g/dl (13.5-17.5); IMMATURE GRANULOCYTE % 0.5 % (0-3.0); LYMPH # 1.6 10^3/uL (1.5-4.5); LYMPH % 10.7 % (24.0-44.0); MEAN CORPUSCULAR HEMOGLOBIN 27.4 pg (27.0-33.0); MEAN CORPUSCULAR HGB CONC 33.3 g/dl (32.0-36.5); MEAN CORPUSCULAR VOLUME 82.1 fl (80.0-96.0); MONO # 1.4 10^3/uL (0.0-0.8); MONO % 9.6 % (0.0-5.0); NEUTROPHILS # 11.4 10^3/uL (1.8-7.7); PLATELET COUNT, AUTOMATED 260 10^3/uL (150-450); RED BLOOD COUNT 4.42 10^6/uL (4.30-6.10); RED CELL DISTRIBUTION WIDTH 13.9 % (11.5-14.5); WHITE BLOOD COUNT 14.4 10^3/uL (4.0-10.0)
[2017-12-23 06:55] LABS: ANION GAP 9 MEQ/L (8-16); BLOOD UREA NITROGEN 9 MG/DL (7-18); CALCIUM LEVEL 8.2 MG/DL (8.8-10.2); CARBON DIOXIDE LEVEL 21 MEQ/L (21-32); CHLORIDE LEVEL 108 MEQ/L (98-107); CREATININE FOR GFR 0.63 MG/DL (0.70-1.30); GLOMERULAR FILTRATION RATE > 60.0 (>49); GLUCOSE, FASTING 102 MG/DL (70-100); POTASSIUM SERUM 3.2 MEQ/L (3.5-5.1); SODIUM LEVEL 138 MEQ/L (136-145); VANCOMYCIN LEVEL TROUGH 11.1 UG/ML (10.0-20.0)
[2017-12-23] MEDS: CLORAZEPATE 3.75 MG TAB PO ×4 (10:06→20:20)
[2017-12-23] MEDS: ENOXAPARIN 40 MG/0.4 ML SYRINGE (J1650) SC (10:06)
[2017-12-23] MEDS: VANCOMYCIN HCL 1,000 MG, VIAL MATE ADAPTER 1 EACH in D5W 250 ML IV ×3 (10:07→20:19)
[2017-12-23] MEDS: TOPIRAMATE (TopAMAX) 100 MG TAB PO ×2 (10:07→20:19)
[2017-12-23] MEDS: SPIRONOLACTONE 25 MG TAB PO ×2 (10:08→20:19)
[2017-12-23] MEDS: PARoxetine 10MG TABLET PO (10:08)
[2017-12-23] MEDS: POTASSIUM CHLORIDE 10 MEQ SR TABLET PO ×2 (10:08→20:20)
[2017-12-23] MEDS: amLODIPine 10 MG TAB PO (10:09)
[2017-12-23] MEDS: lamoTRIgine 100MG TAB PO ×2 (10:09→20:19)
[2017-12-23] MEDS: LEVOTHYROXINE 62.5MCG PER 1/2 TAB (0.0625MG) PO (10:15)
[2017-12-23] MEDS: LATANOPROST 0.005% OPHTH SOLN 2.5 ML OU (20:19)
[2017-12-23] MEDS: THERAPEUTIC BATH LOTION 240 ML BTL EXT (20:19)
[2017-12-23 21:04] LABS: BEDSIDE GLUCOSE 127 MG/DL (80-115)
[2017-12-24] MEDS: IPRATROPIUM 0.5MG/ALBUTEROL 2.5MG INH SOL UD 3ML (DUONEB)(J7620) NEB ×6 (01:55→23:30)
[2017-12-24] MEDS: PIPERACILLIN/TAZOBACTAM SOD 4.5 GM in D5W MINI-BAG PLUS 50 ML IV ×4 (04:14→21:14)
[2017-12-24] MEDS: **hydrALAZINE HCL** 25 MG TAB PO ×3 (06:00→21:00)
[2017-12-24 06:15] LABS: BASO % 0.3 % (0.0-1.0); EOS % 0.2 % (0.0-3.0); HEMATOCRIT 33.9 % (42.0-52.0); HEMOGLOBIN 11.1 g/dl (13.5-17.5); IMMATURE GRANULOCYTE % 0.5 % (0-3.0); LYMPH # 1.3 10^3/uL (1.5-4.5); LYMPH % 11.1 % (24.0-44.0); MEAN CORPUSCULAR HEMOGLOBIN 27.4 pg (27.0-33.0); MEAN CORPUSCULAR HGB CONC 32.7 g/dl (32.0-36.5); MEAN CORPUSCULAR VOLUME 83.7 fl (80.0-96.0); MONO # 1.2 10^3/uL (0.0-0.8); MONO % 10.2 % (0.0-5.0); NEUTROPHILS % 77.7 % (36.0-66.0); PLATELET COUNT, AUTOMATED 250 10^3/uL (150-450); RED BLOOD COUNT 4.05 10^6/uL (4.30-6.10); RED CELL DISTRIBUTION WIDTH 14.3 % (11.5-14.5); WHITE BLOOD COUNT 11.6 10^3/uL (4.0-10.0)
[2017-12-24 06:35] LABS: ANION GAP 8 MEQ/L (8-16); BLOOD UREA NITROGEN 10 MG/DL (7-18); CARBON DIOXIDE LEVEL 20 MEQ/L (21-32); CHLORIDE LEVEL 110 MEQ/L (98-107); CREATININE FOR GFR 0.69 MG/DL (0.70-1.30); GLOMERULAR FILTRATION RATE > 60.0 (>49); GLUCOSE, FASTING 101 MG/DL (70-100); POTASSIUM SERUM 3.6 MEQ/L (3.5-5.1); SODIUM LEVEL 138 MEQ/L (136-145)
[2017-12-24] MEDS: CLORAZEPATE 3.75 MG TAB PO ×4 (09:12→21:14)
[2017-12-24] MEDS: lamoTRIgine 100MG TAB PO ×3 (09:12→21:14)
[2017-12-24] MEDS: amLODIPine 10 MG TAB PO (09:12)
[2017-12-24] MEDS: ENOXAPARIN 40 MG/0.4 ML SYRINGE (J1650) SC (09:13)
[2017-12-24] MEDS: LEVOTHYROXINE 62.5MCG PER 1/2 TAB (0.0625MG) PO (09:23)
[2017-12-24] MEDS: POTASSIUM CHLORIDE 10 MEQ SR TABLET PO ×2 (09:23→21:13)
[2017-12-24] MEDS: PARoxetine 10MG TABLET PO (09:23)
[2017-12-24] MEDS: SPIRONOLACTONE 25 MG TAB PO ×2 (09:23→21:14)
[2017-12-24] MEDS: VANCOMYCIN HCL 1,000 MG, VIAL MATE ADAPTER 1 EACH in D5W 250 ML IV ×2 (09:24→19:45)
[2017-12-24] MEDS: TOPIRAMATE (TopAMAX) 100 MG TAB PO ×2 (13:05→21:13)
[2017-12-24] MEDS: LATANOPROST 0.005% OPHTH SOLN 2.5 ML OU (21:14)
[2017-12-24] MEDS: THERAPEUTIC BATH LOTION 240 ML BTL EXT (21:14)
[2017-12-25] MEDS: PIPERACILLIN/TAZOBACTAM SOD 4.5 GM in D5W MINI-BAG PLUS 50 ML IV ×4 (04:01→21:59)
[2017-12-25] MEDS: **hydrALAZINE HCL** 25 MG TAB PO ×4 (06:00→21:39)
[2017-12-25 06:14] LABS: BASO % 0.4 % (0.0-1.0); EOS % 0.4 % (0.0-3.0); HEMATOCRIT 32.3 % (42.0-52.0); HEMOGLOBIN 10.5 g/dl (13.5-17.5); IMMATURE GRANULOCYTE % 0.5 % (0-3.0); LYMPH # 1.7 10^3/uL (1.5-4.5); MEAN CORPUSCULAR HEMOGLOBIN 27.4 pg (27.0-33.0); MEAN CORPUSCULAR HGB CONC 32.5 g/dl (32.0-36.5); MEAN CORPUSCULAR VOLUME 84.3 fl (80.0-96.0); NEUTROPHILS # 5.7 10^3/uL (1.8-7.7); NEUTROPHILS % 66.7 % (36.0-66.0); PLATELET COUNT, AUTOMATED 245 10^3/uL (150-450); RED BLOOD COUNT 3.83 10^6/uL (4.30-6.10); RED CELL DISTRIBUTION WIDTH 14.5 % (11.5-14.5); WHITE BLOOD COUNT 8.5 10^3/uL (4.0-10.0)
[2017-12-25 06:34] LABS: ANION GAP 8 MEQ/L (8-16); BLOOD UREA NITROGEN 12 MG/DL (7-18); CARBON DIOXIDE LEVEL 19 MEQ/L (21-32); CHLORIDE LEVEL 115 MEQ/L (98-107); CREATININE FOR GFR 0.67 MG/DL (0.70-1.30); GLOMERULAR FILTRATION RATE > 60.0 (>49); GLUCOSE, FASTING 96 MG/DL (70-100); POTASSIUM SERUM 3.9 MEQ/L (3.5-5.1); SODIUM LEVEL 142 MEQ/L (136-145)
[2017-12-25] MEDS: IPRATROPIUM 0.5MG/ALBUTEROL 2.5MG INH SOL UD 3ML (DUONEB)(J7620) NEB ×3 (07:20→20:23)
[2017-12-25 08:28] LABS: VANCOMYCIN LEVEL TROUGH 11.7 UG/ML (10.0-20.0)
[2017-12-25] MEDS: ENOXAPARIN 40 MG/0.4 ML SYRINGE (J1650) SC (09:16)
[2017-12-25] MEDS: VANCOMYCIN HCL 1,000 MG, VIAL MATE ADAPTER 1 EACH in D5W 250 ML IV ×2 (09:16→21:59)
[2017-12-25] MEDS: POTASSIUM CHLORIDE 10 MEQ SR TABLET PO ×2 (09:17→21:37)
[2017-12-25] MEDS: CLORAZEPATE 3.75 MG TAB PO ×4 (09:17→21:59)
[2017-12-25] MEDS: SPIRONOLACTONE 25 MG TAB PO ×2 (09:17→21:37)
[2017-12-25] MEDS: amLODIPine 10 MG TAB PO (09:18)
[2017-12-25] MEDS: TOPIRAMATE (TopAMAX) 100 MG TAB PO ×2 (09:18→21:37)
[2017-12-25] MEDS: PARoxetine 10MG TABLET PO (09:21)
[2017-12-25] MEDS: LEVOTHYROXINE 62.5MCG PER 1/2 TAB (0.0625MG) PO (13:56)
[2017-12-25] MEDS: VANCOMYCIN HCL 500 MG in D5W MINI-BAG PLUS 100 ML IV (16:00)
[2017-12-25] MEDS: NICOTINE 21MG/24HR 1 EA TRANSDERMAL TD (16:39)
[2017-12-25] MEDS: LATANOPROST 0.005% OPHTH SOLN 2.5 ML OU (21:00)
[2017-12-25] MEDS: lamoTRIgine 100MG TAB PO (21:40)
[2017-12-25] MEDS: THERAPEUTIC BATH LOTION 240 ML BTL EXT (22:01)
[2017-12-26] MEDS: IPRATROPIUM 0.5MG/ALBUTEROL 2.5MG INH SOL UD 3ML (DUONEB)(J7620) NEB ×4 (02:07→22:10)
[2017-12-26] MEDS: PIPERACILLIN/TAZOBACTAM SOD 4.5 GM in D5W MINI-BAG PLUS 50 ML IV ×4 (04:20→22:11)
[2017-12-26] MEDS: **hydrALAZINE HCL** 25 MG TAB PO ×3 (05:58→20:26)
[2017-12-26 06:48] LABS: BASO # 0.1 10^3/uL (0.0-0.2); BASO % 0.6 % (0.0-1.0); EOS # 0.2 10^3/uL (0.0-0.50); EOS % 1.7 % (0.0-3.0); HEMATOCRIT 32.6 % (42.0-52.0); HEMOGLOBIN 10.5 g/dl (13.5-17.5); IMMATURE GRANULOCYTE % 0.5 % (0-3.0); LYMPH # 1.9 10^3/uL (1.5-4.5); MEAN CORPUSCULAR HEMOGLOBIN 27.1 pg (27.0-33.0); MEAN CORPUSCULAR HGB CONC 32.2 g/dl (32.0-36.5); MEAN CORPUSCULAR VOLUME 84.2 fl (80.0-96.0); MONO % 10.9 % (0.0-5.0); NEUTROPHILS # 5.8 10^3/uL (1.8-7.7); NEUTROPHILS % 65.3 % (36.0-66.0); PLATELET COUNT, AUTOMATED 274 10^3/uL (150-450); RED BLOOD COUNT 3.87 10^6/uL (4.30-6.10); RED CELL DISTRIBUTION WIDTH 14.6 % (11.5-14.5); WHITE BLOOD COUNT 8.8 10^3/uL (4.0-10.0)
[2017-12-26 07:11] LABS: ANION GAP 7 MEQ/L (8-16); BLOOD UREA NITROGEN 14 MG/DL (7-18); CALCIUM LEVEL 8.4 MG/DL (8.8-10.2); CARBON DIOXIDE LEVEL 20 MEQ/L (21-32); CHLORIDE LEVEL 115 MEQ/L (98-107); CREATININE FOR GFR 0.63 MG/DL (0.70-1.30); GLOMERULAR FILTRATION RATE > 60.0 (>49); GLUCOSE, FASTING 97 MG/DL (70-100); POTASSIUM SERUM 4.1 MEQ/L (3.5-5.1); SODIUM LEVEL 142 MEQ/L (136-145)
[2017-12-26] MEDS: SODIUM BICARBONATE 325 MG TAB PO ×4 (09:00→20:39)
[2017-12-26] MEDS: POTASSIUM CHLORIDE 10 MEQ SR TABLET PO ×2 (09:50→20:38)
[2017-12-26] MEDS: TOPIRAMATE (TopAMAX) 100 MG TAB PO ×2 (09:50→20:39)
[2017-12-26] MEDS: VANCOMYCIN HCL 1,000 MG, VIAL MATE ADAPTER 1 EACH in D5W 250 ML IV ×2 (09:50→20:39)
[2017-12-26] MEDS: SPIRONOLACTONE 25 MG TAB PO ×2 (09:50→20:38)
[2017-12-26] MEDS: amLODIPine 10 MG TAB PO (09:51)
[2017-12-26] MEDS: ENOXAPARIN 40 MG/0.4 ML SYRINGE (J1650) SC (09:51)
[2017-12-26] MEDS: CLORAZEPATE 3.75 MG TAB PO ×4 (09:51→20:39)
[2017-12-26] MEDS: NICOTINE 21MG/24HR 1 EA TRANSDERMAL TD (09:52)
[2017-12-26] MEDS: LEVOTHYROXINE 62.5MCG PER 1/2 TAB (0.0625MG) PO (09:52)
[2017-12-26] MEDS: lamoTRIgine 100MG TAB PO ×2 (09:52→20:39)
[2017-12-26] MEDS: PARoxetine 10MG TABLET PO (09:52)
[2017-12-26 19:11] LABS: ANION GAP 7 MEQ/L (8-16); BLOOD UREA NITROGEN 14 MG/DL (7-18); CALCIUM LEVEL 8.3 MG/DL (8.8-10.2); CARBON DIOXIDE LEVEL 19 MEQ/L (21-32); CHLORIDE LEVEL 115 MEQ/L (98-107); CREATININE FOR GFR 0.83 MG/DL (0.70-1.30); GLOMERULAR FILTRATION RATE > 60.0 (>49); GLUCOSE, FASTING 148 MG/DL (70-100); POTASSIUM SERUM 4.3 MEQ/L (3.5-5.1); SODIUM LEVEL 141 MEQ/L (136-145)
[2017-12-26] MEDS: LATANOPROST 0.005% OPHTH SOLN 2.5 ML OU (20:40)
[2017-12-26] MEDS: THERAPEUTIC BATH LOTION 240 ML BTL EXT (20:40)
[2017-12-27 01:14] LABS: ANION GAP 5 MEQ/L (8-16); BLOOD UREA NITROGEN 16 MG/DL (7-18); CALCIUM LEVEL 8.6 MG/DL (8.8-10.2); CARBON DIOXIDE LEVEL 21 MEQ/L (21-32); CHLORIDE LEVEL 115 MEQ/L (98-107); CREATININE FOR GFR 0.72 MG/DL (0.70-1.30); GLOMERULAR FILTRATION RATE > 60.0 (>49); GLUCOSE, FASTING 101 MG/DL (70-100); POTASSIUM SERUM 4.4 MEQ/L (3.5-5.1); SODIUM LEVEL 141 MEQ/L (136-145)
[2017-12-27] MEDS: IPRATROPIUM 0.5MG/ALBUTEROL 2.5MG INH SOL UD 3ML (DUONEB)(J7620) NEB ×2 (01:57→08:10)
[2017-12-27] MEDS: PIPERACILLIN/TAZOBACTAM SOD 4.5 GM in D5W MINI-BAG PLUS 50 ML IV ×2 (03:45→10:42)
[2017-12-27] MEDS: **hydrALAZINE HCL** 25 MG TAB PO (05:44)
[2017-12-27 07:13] LABS: BASO # 0.1 10^3/uL (0.0-0.2); BASO % 0.6 % (0.0-1.0); EOS # 0.4 10^3/uL (0.0-0.50); EOS % 3.7 % (0.0-3.0); HEMOGLOBIN 11.3 g/dl (13.5-17.5); IMMATURE GRANULOCYTE % 0.5 % (0-3.0); LYMPH % 20.3 % (24.0-44.0); MEAN CORPUSCULAR HEMOGLOBIN 27.5 pg (27.0-33.0); MEAN CORPUSCULAR HGB CONC 32.3 g/dl (32.0-36.5); MEAN CORPUSCULAR VOLUME 85.2 fl (80.0-96.0); MONO # 0.8 10^3/uL (0.0-0.8); MONO % 8.4 % (0.0-5.0); NEUTROPHILS # 6.6 10^3/uL (1.8-7.7); NEUTROPHILS % 66.5 % (36.0-66.0); PLATELET COUNT, AUTOMATED 275 10^3/uL (150-450); RED BLOOD COUNT 4.11 10^6/uL (4.30-6.10); RED CELL DISTRIBUTION WIDTH 14.7 % (11.5-14.5)
[2017-12-27 07:33] LABS: ANION GAP 8 MEQ/L (8-16); BLOOD UREA NITROGEN 14 MG/DL (7-18); CALCIUM LEVEL 8.6 MG/DL (8.8-10.2); CARBON DIOXIDE LEVEL 19 MEQ/L (21-32); CHLORIDE LEVEL 115 MEQ/L (98-107); CREATININE FOR GFR 0.71 MG/DL (0.70-1.30); GLOMERULAR FILTRATION RATE > 60.0 (>49); GLUCOSE, FASTING 95 MG/DL (70-100); POTASSIUM SERUM 4.1 MEQ/L (3.5-5.1); SODIUM LEVEL 142 MEQ/L (136-145)
[2017-12-27] MEDS: SODIUM BICARBONATE 325 MG TAB PO (09:01)
[2017-12-27] MEDS: CLORAZEPATE 3.75 MG TAB PO ×2 (09:01→09:02)
[2017-12-27] MEDS: TOPIRAMATE (TopAMAX) 100 MG TAB PO (09:02)
[2017-12-27] MEDS: lamoTRIgine 100MG TAB PO (09:02)
[2017-12-27] MEDS: VANCOMYCIN HCL 1,000 MG, VIAL MATE ADAPTER 1 EACH in D5W 250 ML IV (09:02)
[2017-12-27] MEDS: SPIRONOLACTONE 25 MG TAB PO (09:03)
[2017-12-27] MEDS: amLODIPine 10 MG TAB PO (09:03)
[2017-12-27] MEDS: PARoxetine 10MG TABLET PO (09:03)
[2017-12-27] MEDS: POTASSIUM CHLORIDE 10 MEQ SR TABLET PO (09:03)
[2017-12-27] MEDS: NICOTINE 21MG/24HR 1 EA TRANSDERMAL TD (09:04)
[2017-12-27] MEDS: LEVOTHYROXINE 62.5MCG PER 1/2 TAB (0.0625MG) PO (10:42)
== END 2017-12-27 13:10 | disposition home or self-care (01) | DRG 177 ==
LOC: M PCU 12-22 13:00 → M ED 18:59 → M MS5PR 12-22 17:53 → M ED INP 21:59
DX: J69.0 Pneumonitis due to inhalation of food and vomit (principal); J96.01 Acute respiratory failure with hypoxia; E87.2 Acidosis; I10 Essential (primary) hypertension; F79 Unspecified intellectual disabilities; F81.9 Developmental disorder of scholastic skills, unspecified; E34.3 Short stature due to endocrine disorder; E03.9 Hypothyroidism, unspecified; I16.0 Hypertensive urgency; F17.210 Nicotine dependence, cigarettes, uncomplicated; G40.909 Epilepsy, unspecified, not intractable, without status epilepticus; F31.9 Bipolar disorder, unspecified; Z79.899 Other long term (current) drug therapy

== ENCOUNTER → 2018-01-11 | Outpatient (CLI) | payer MEDICARE, MEDICAID | LOC: M ADAMS 09:26 | DX: J18.9 Pneumonia, unspecified organism (principal) | CPT/HCPCS: 71046 ==

== ENCOUNTER → 2018-04-04 | Outpatient (CLI) | payer MEDICARE, MEDICAID ==
[2018-04-04 12:03] LABS: TOTAL 25(OH) VITAMIN D 37.1 NG/ML (30.0-100.0)
== END ==
LOC: M WUC 10:06
DX: E55.9 Vitamin D deficiency, unspecified (principal)
CPT/HCPCS: 82306

== ENCOUNTER → 2018-05-21 | Outpatient (CLI) | payer MEDICARE, MEDICAID ==
[2018-05-21 13:29] LABS: BASO % 0.5 % (0.0-1.0); EOS # 0.4 10^3/uL (0.0-0.50); EOS % 5.1 % (0.0-3.0); HEMATOCRIT 38.7 % (42.0-52.0); HEMOGLOBIN 12.2 g/dl (13.5-17.5); IMMATURE GRANULOCYTE % 0.4 % (0-3.0); LYMPH # 2.1 10^3/uL (1.5-4.5); LYMPH % 28.4 % (24.0-44.0); MEAN CORPUSCULAR HEMOGLOBIN 27.9 pg (27.0-33.0); MEAN CORPUSCULAR HGB CONC 31.5 g/dl (32.0-36.5); MEAN CORPUSCULAR VOLUME 88.4 fl (80.0-96.0); MONO # 0.6 10^3/uL (0.0-0.8); MONO % 8.1 % (0.0-5.0); NEUTROPHILS # 4.3 10^3/uL (1.8-7.7); NEUTROPHILS % 57.5 % (36.0-66.0); PLATELET COUNT, AUTOMATED 234 10^3/uL (150-450); RED BLOOD COUNT 4.38 10^6/uL (4.30-6.10); RED CELL DISTRIBUTION WIDTH 14.8 % (11.5-14.5); WHITE BLOOD COUNT 7.4 10^3/uL (4.0-10.0)
[2018-05-22 00:23] LABS: ALBUMIN 3.7 GM/DL (3.2-5.2); ALKALINE PHOSPHATASE 117 U/L (45-117); ALT/SGPT 19 U/L (12-78); ANION GAP 7 MEQ/L (8-16); AST/SGOT 14 U/L (7-37); BILIRUBIN,TOTAL 0.2 MG/DL (0.2-1.0); BLOOD UREA NITROGEN 13 MG/DL (7-18); CALCIUM LEVEL 9.2 MG/DL (8.8-10.2); CARBON DIOXIDE LEVEL 24 MEQ/L (21-32); CHLORIDE LEVEL 107 MEQ/L (98-107); CREATININE FOR GFR 0.73 MG/DL (0.70-1.30); FREE T3 2.7 PG/ML (2.2-4.0); FREE T4 1.09 NG/DL (0.76-1.46); GLOMERULAR FILTRATION RATE > 60.0 (>49); GLUCOSE, FASTING 70 MG/DL (70-100); POTASSIUM SERUM 4.2 MEQ/L (3.5-5.1); SODIUM LEVEL 138 MEQ/L (136-145); TOTAL PROTEIN 6.7 GM/DL (6.4-8.2)
[2018-05-22 01:04] LABS: ALBUMIN/GLOBULIN RATIO 1.23 (1.00-1.93)
[2018-05-23 00:07] LABS: PSA TOTAL 0.5 ng/mL (0.0-4.0)
== END ==
LOC: M SMT 08:32
DX: E03.9 Hypothyroidism, unspecified (principal); I10 Essential (primary) hypertension; Z12.5 Encounter for screening for malignant neoplasm of prostate
CPT/HCPCS: 84443

== ENCOUNTER → 2018-06-04 | Outpatient (CLI) | payer MEDICARE, MEDICAID ==
[2018-06-04 13:53] LABS: TOTAL 25(OH) VITAMIN D 21.3 NG/ML (30.0-100.0)
[2018-06-06 14:20] LABS: TOPIRAMATE LEVEL 15.1 ug/mL (2.0-25.0)
== END ==
LOC: M WUC 09:02
DX: R56.9 Unspecified convulsions (principal); E55.9 Vitamin D deficiency, unspecified
CPT/HCPCS: 82306

== ENCOUNTER → 2018-07-09 | Outpatient (CLI) | payer MEDICARE, MEDICAID ==
[2018-07-09 10:22] LABS: CHOLESTEROL LEVEL 144 MG/DL (<200); CHOLESTEROL RISK RATIO 3.272 (<5); HDL CHOLESTEROL 44 MG/DL (>40); LDL CHOLESTEROL 74 MG/DL (<100); NON-HDL-C 100 MG/DL; TRIGLYCERIDES LEVEL 130 MG/DL (<150)
[2018-07-09 10:34] LABS: TOTAL 25(OH) VITAMIN D 65.3 NG/ML (30.0-100.0)
== END ==
LOC: M WUC 08:05
DX: E55.9 Vitamin D deficiency, unspecified (principal); Z13.220 Encounter for screening for lipoid disorders
CPT/HCPCS: 82306

== ENCOUNTER → 2018-11-17 | Outpatient (CLI) | payer MEDICARE, MEDICAID ==
[~2018-11-17] MED LIST changes: +ALEN70TA57 PO; +AMLO10TA5 PO; +AVEL1TAB3 PO; +CALC1TAB21 PO; +CLOR37TA PO; +CLOR7.5T3 PO; +DEBR6.5S4 AU; +LAMO100T PO; +LEVA750T7 PO; +PAXI10TA12 PO; -SPIR25TA2 OR; +SPIR25TA2 PO; +SYNT125T PO; -TOPI100T OR; +TOPI100T PO; +VITA50005 PO; +VITMTA PO; +XALA0.007 OU; +[UNRECOGNIZED DRUG - CODE] EXT
[2018-11-17 18:47] LABS: BASO % 0.6 % (0.0-1.0); EOS # 0.3 10^3/uL (0.0-0.50); EOS % 4.4 % (0.0-3.0); HEMATOCRIT 40.8 % (42.0-52.0); HEMOGLOBIN 12.6 g/dl (13.5-17.5); LYMPH # 1.8 10^3/uL (1.5-4.5); LYMPH % 27.5 % (24.0-44.0); MEAN CORPUSCULAR HEMOGLOBIN 27.2 pg (27.0-33.0); MEAN CORPUSCULAR HGB CONC 30.9 g/dl (32.0-36.5); MEAN CORPUSCULAR VOLUME 88.1 fl (80.0-96.0); MONO # 0.5 10^3/uL (0.0-0.8); MONO % 7.9 % (0.0-5.0); NEUTROPHILS # 3.9 10^3/uL (1.8-7.7); NEUTROPHILS % 59.4 % (36.0-66.0); PLATELET COUNT, AUTOMATED 273 10^3/uL (150-450); RED BLOOD COUNT 4.63 10^6/uL (4.30-6.10); WHITE BLOOD COUNT 6.6 10^3/uL (4.0-10.0)
[2018-11-17 19:03] LABS: ALBUMIN 3.7 GM/DL (3.2-5.2); ALT/SGPT 27 U/L (12-78); BILIRUBIN,TOTAL 0.3 MG/DL (0.2-1.0); BLOOD UREA NITROGEN 17 MG/DL (7-18); CALCIUM LEVEL 8.4 MG/DL (8.8-10.2); CARBON DIOXIDE LEVEL 23 MEQ/L (21-32); CHLORIDE LEVEL 111 MEQ/L (98-107); CREATININE FOR GFR 0.76 MG/DL (0.70-1.30); GLOMERULAR FILTRATION RATE > 60.0 (>49); GLUCOSE, FASTING 75 MG/DL (70-100); POTASSIUM SERUM 4.1 MEQ/L (3.5-5.1); SODIUM LEVEL 141 MEQ/L (136-145); TOTAL PROTEIN 6.6 GM/DL (6.4-8.2)
[2018-11-19 10:49] LABS: TOTAL 25(OH) VITAMIN D 99.9 NG/ML (30.0-100.0)
[2018-11-21 00:08] LABS: TOPIRAMATE LEVEL 14.2 ug/mL (2.0-25.0)
== END ==
LOC: M ADAMS 10:20
PROVIDERS: ATTEND Physician Assistant Medical
DX: R56.9 Unspecified convulsions (principal); E55.9 Vitamin D deficiency, unspecified

== ENCOUNTER → 2019-01-23 | Outpatient (REF) | payer MEDICARE, MEDICAID ==
[~2019-01-23] MED LIST changes: -/LAMO15TA OR; -/LAMO20TA OR; -/MOM400 PO; -ACET50TA PO; -ALEN70TA57 PO; +ALEN70TA74 PO; +LAMI1TAB8 OR; +LAMI1TAB9 OR; +MAPA500T17 PO; +MILK10SU PO
== END ==
LOC: M LABDRWAD 12:22
PROVIDERS: ATTEND Nurse Practitioner Family
DX: E55.9 Vitamin D deficiency, unspecified (principal)

== ENCOUNTER → 2019-01-23 | Outpatient (REF) | payer MEDICARE, MEDICAID ==
[2019-01-23 13:29] LABS: ALBUMIN 3.7 GM/DL (3.2-5.2); ALT/SGPT 36 U/L (12-78); BILIRUBIN,TOTAL 0.2 MG/DL (0.2-1.0); BLOOD UREA NITROGEN 19 MG/DL (7-18); CALCIUM LEVEL 9.1 MG/DL (8.8-10.2); CARBON DIOXIDE LEVEL 26 MEQ/L (21-32); CHLORIDE LEVEL 108 MEQ/L (98-107); CREATININE FOR GFR 0.76 MG/DL (0.70-1.30); GLOMERULAR FILTRATION RATE > 60.0 (>49); GLUCOSE, FASTING 83 MG/DL (70-100); POTASSIUM SERUM 3.7 MEQ/L (3.5-5.1); SODIUM LEVEL 139 MEQ/L (136-145); TOTAL PROTEIN 6.9 GM/DL (6.4-8.2)
[2019-01-23 13:30] LABS: BASO % 0.4 % (0.0-1.0); EOS # 0.2 10^3/uL (0.0-0.50); EOS % 2.3 % (0.0-3.0); HEMATOCRIT 41.6 % (42.0-52.0); HEMOGLOBIN 12.7 g/dl (13.5-17.5); LYMPH # 2.1 10^3/uL (1.5-4.5); LYMPH % 20.9 % (24.0-44.0); MEAN CORPUSCULAR HEMOGLOBIN 25.7 pg (27.0-33.0); MEAN CORPUSCULAR HGB CONC 30.5 g/dl (32.0-36.5); MEAN CORPUSCULAR VOLUME 84.2 fl (80.0-96.0); MONO # 0.6 10^3/uL (0.0-0.8); PLATELET COUNT, AUTOMATED 344 10^3/uL (150-450); RED BLOOD COUNT 4.94 10^6/uL (4.30-6.10); WHITE BLOOD COUNT 9.9 10^3/uL (4.0-10.0)
[2019-01-25 10:12] LABS: LAMOTRIGINE (LAMICTAL) 3.9 ug/mL (2.0-20.0); TOPIRAMATE LEVEL 12.1 ug/mL (2.0-25.0)
== END ==
LOC: M LABDRWAD 12:20
PROVIDERS: ATTEND Physician Assistant Medical
DX: R56.9 Unspecified convulsions (principal); E55.9 Vitamin D deficiency, unspecified

== ENCOUNTER → 2019-09-09 | Outpatient (REF) | payer MEDICARE, MEDICAID ==
[~2019-09-09] MED LIST changes: -LAMO100T PO; +LAMO100T3 PO
[2019-09-09 12:53] LABS: HEMATOCRIT 42.5 % (42.0-52.0); HEMOGLOBIN 12.8 g/dl (13.5-17.5); MEAN CORPUSCULAR HGB CONC 30.1 g/dl (32.0-36.5); MEAN CORPUSCULAR VOLUME 89.7 fl (80.0-96.0); PLATELET COUNT, AUTOMATED 276 10^3/uL (150-450); RED BLOOD COUNT 4.74 10^6/uL (4.30-6.10); WHITE BLOOD COUNT 9.3 10^3/uL (4.0-10.0)
[2019-09-09 14:00] LABS: ALT/SGPT 23 U/L (12-78); BILIRUBIN,TOTAL 0.2 MG/DL (0.2-1.0); BLOOD UREA NITROGEN 18 MG/DL (7-18); CALCIUM LEVEL 9.2 MG/DL (8.8-10.2); CARBON DIOXIDE LEVEL 25 MEQ/L (21-32); CHLORIDE LEVEL 109 MEQ/L (98-107); CHOLESTEROL LEVEL 150 MG/DL (<200); CHOLESTEROL RISK RATIO 3.571 (<5); CREATININE FOR GFR 0.87 MG/DL (0.70-1.30); FERRITIN 5 NG/ML (26-388); FREE T4 0.99 NG/DL (0.76-1.46); GLOMERULAR FILTRATION RATE > 60.0 (>42); GLUCOSE, FASTING 81 MG/DL (70-100); HDL CHOLESTEROL 42 MG/DL (>40); IRON (FE) 47 UG/DL (65-175); LDL CHOLESTEROL 74 MG/DL (<100); NON-HDL-C 108 MG/DL; PERCENT SATURATION 11.4 % (19.7-50.0); POTASSIUM SERUM 4.1 MEQ/L (3.5-5.1); SODIUM LEVEL 140 MEQ/L (136-145); TOTAL IRON BINDING CAPACITY 412 UG/DL (250-450); TOTAL PROTEIN 7.3 GM/DL (6.4-8.2); TRIGLYCERIDES LEVEL 170 MG/DL (<150)
[2019-09-09 14:12] LABS: TOTAL 25(OH) VITAMIN D 27.1 NG/ML (30.0-100.0); VITAMIN B12 LEVEL 1231 PG/ML
[2019-09-09 14:13] LABS: FOLATE > 24.0 NG/ML
== END ==
LOC: M SFHCADAM 09:23
PROVIDERS: ATTEND Physician Assistant
DX: I10 Essential (primary) hypertension (principal); E03.9 Hypothyroidism, unspecified; D64.9 Anemia, unspecified; Z13.220 Encounter for screening for lipoid disorders; Z12.5 Encounter for screening for malignant neoplasm of prostate; E55.9 Vitamin D deficiency, unspecified
CPT/HCPCS: 80053; 80061; 82306; 82607; 82728; 82746; 83550; 84439; 84443; 85027; 90682; G0008; G0103; G0463

== ENCOUNTER 2019-11-20 13:07 | Emergency (ER) | payer MEDICARE, MEDICAID ==
[2019-11-20] MEDS ORDERED: NS 1,000 ML IV ONE (14:30)
[2019-11-20 17:03] LABS: BASO % 0.3 % (0.0-1.0); EOS # 0.2 10^3/uL (0.0-0.5); EOS % 2.7 % (0.0-3.0); LYMPH # 1.8 10^3/uL (1.5-5.0); LYMPH % 27.7 % (24.0-44.0); MEAN CORPUSCULAR HEMOGLOBIN 28.1 pg (27.0-33.0); MEAN CORPUSCULAR HGB CONC 32.5 g/dl (32.0-36.5); MEAN CORPUSCULAR VOLUME 86.4 fl (80.0-96.0); MONO # 0.6 10^3/uL (0.0-0.8); MONO % 8.8 % (0.0-5.0); NEUTROPHILS # 3.9 10^3/uL (1.5-8.5); NEUTROPHILS % 59.4 % (36.0-66.0); PLATELET COUNT, AUTOMATED 194 10^3/uL (150-450); RED BLOOD COUNT 4.63 10^6/uL (4.30-6.10); WHITE BLOOD COUNT 6.6 10^3/uL (4.0-10.0)
[2019-11-20 17:43] LABS: ALBUMIN 3.6 GM/DL (3.2-5.2); ALT/SGPT 23 U/L (12-78); BILIRUBIN,DIRECT < 0.1 MG/DL (0.0-0.2); BILIRUBIN,TOTAL 0.2 MG/DL (0.2-1.0); BLOOD UREA NITROGEN 10 MG/DL (7-18); CALCIUM LEVEL 8.7 MG/DL (8.8-10.2); CARBON DIOXIDE LEVEL 25 MEQ/L (21-32); CHLORIDE LEVEL 112 MEQ/L (98-107); CK-MB VALUE MASS 1.9 NG/ML (<3.6); CPK CREATINE PHOSPHOKINASE 80 U/L (39-308); CREATININE FOR GFR 0.75 MG/DL (0.70-1.30); GLOMERULAR FILTRATION RATE > 60.0 (>42); GLUCOSE, FASTING 113 MG/DL (70-100); LIPASE 80 U/L (73-393); MB/CK RELATIVE INDEX 2.38 (< OR =4); POTASSIUM SERUM 3.2 MEQ/L (3.5-5.1); SODIUM LEVEL 143 MEQ/L (136-145); TOTAL PROTEIN 6.7 GM/DL (6.4-8.2); TROPONIN I < 0.02 NG/ML (< 0.10)
--- NOTE | 2019-11-20 18:26 | REPVR ---
PROCEDURE INFORMATION: Exam: US Abdomen Limited, Right Upper Quadrant Exam date and time: 11/20/2019 6:07 PM Age: 69 years old Clinical indication: Abdominal pain; Acute; Additional info: Ruq pain TECHNIQUE: Imaging protocol: Real-time ultrasound of the abdomen with image documentation. Examination was focused on the right upper quadrant. COMPARISON: Abdomen, limited US 12/21/2017 8:20 PM FINDINGS: Liver: Normal. No masses. Gallbladder: Normal. No gallstones. There is no gallbladder wall thickening. Common bile duct: The common bile duct measures 2.5 mm. No mass or choledocholithiasis. Pancreas: Pancreas obscured by overlying bowel gas. Right kidney: Right kidney measures 10.5 x 4.5 x 5.7 cm. Parapelvic cyst in the right kidney measures 2.6 x 2.7 x 2.5 cm without complex features. Echogenic focus demonstrating a posterior acoustic shadow demonstrated adjacent to the cyst centrally within the right kidney measures 1.4 x 0.6 x 1 cm consistent with a nonobstructive calculus. IMPRESSION: 1. Non complex parapelvic cyst right kidney. No follow-up suggested. 2. Nonobstructive calculus right kidney. 3. Normal examination of the gallbladder and biliary tree. 4. Nonvisualized pancreas. COMMENTS: Consistent with the [employer]'s Incidental Findings Committee white paper (J Am Anibal Radiol 2018): Any incidental cystic renal lesion classified in this report as too small to characterize or simple appearing is likely a benign cyst. No follow-up imaging is recommended for these lesions per consensus recommendations based on imaging criteria. Electronically signed by: Tony Forrest On 11/20/2019 18:26:26 PM
--- NOTE | 2019-11-20 18:32 | REP ---
Supine abdomen two views: There are no comparisons. There is moderate distension of the cecum, ascending colon, transverse colon. This is nonspecific. There is no distension of the descending colon or rectosigmoid colon. There is no small bowel distension. There is a calcification inferiorly in the pelvis on the right, likely a phlebolith. There are compression deformities of the L1 - L2-L3 vertebral bodies. Skeletal structures are otherwise unremarkable. Impression: Nonspecific bowel gas pattern. Pelvic calcification, likely a phlebolith. Lumbar vertebral body compression deformities as described. Electronically Signed by Alfie Grey MD 11/20/2019 06:23 P
[2019-11-20 19:31] VITALS: BP 152/85
--- NOTE | 2019-11-20 19:45 | REP ---
Right ribs four views: Comparison is the AP and lateral chest dated 12/21/2017. There are fractures of the right sixth, seventh, eighth, ninth, tenth and eleventh ribs. There is callus formation at the fracture sites suggesting these are old nonacute fractures. However, they were not present on the comparison study. PA chest single view : Comparison is 12/21/2017. There is no pneumothorax, hemothorax or pulmonary contusion. Lung aguilar are clear. Cardiac size is normal. The tonio and mediastinum are unremarkable. There is an old left seventh rib fracture. Electronically Signed by Alfie Grey MD 11/20/2019 07:37 P
[2019-11-20] MEDS ORDERED: SIME40TA PO (20:06)
--- NOTE | 2019-11-20 20:59 | ECGEPIP ---
[facility] - ED Test Date: 2019-11-20 Pat Name: NUNO SUTHERLAND Department: Room: - Gender: Male Bill Hiker: kel : 1950 Requested By: ALAN COLON PA-C. Order Number: [id number] Reading MD: Araceli Barrientos Measurements Intervals [place] Rate: 78 P: 66 WV: 199 QRS: 44 QRSD: 101 T: 18 QT: 388 QTc: 442 Interpretive Statements SINUS RHYTHM PROBABLE INFERIOR MYOCARDIAL INFARCTION, PROBABLY OLD SIMILAR 12/21/17 Electronically Signed on 11-20-2019 20:59:20 EDT by Araceli Barrientos
== END 2019-11-20 20:13 | disposition home or self-care (01) ==
LOC: EDBD 13:07 → M ED 13:07
DX: R10.11 Right upper quadrant pain (principal); K59.00 Constipation, unspecified; R14.3 Flatulence; N28.1 Cyst of kidney, acquired; N20.0 Calculus of kidney; M53.86 Other specified dorsopathies, lumbar region; Z87.81 Personal history of (healed) traumatic fracture; I10 Essential (primary) hypertension; F03.90 Unspecified dementia, unspecified severity, without behavioral disturbance, psychotic disturbance, mood disturbance, and anxiety; F79 Unspecified intellectual disabilities; E34.3 Short stature due to endocrine disorder; R56.9 Unspecified convulsions; K21.9 Gastro-esophageal reflux disease without esophagitis; E03.9 Hypothyroidism, unspecified; M81.0 Age-related osteoporosis without current pathological fracture; F41.9 Anxiety disorder, unspecified; F31.89 Other bipolar disorder; F17.200 Nicotine dependence, unspecified, uncomplicated; Z79.899 Other long term (current) drug therapy; Z88.8 Allergy status to other drugs, medicaments and biological substances

== ENCOUNTER → 2020-04-02 | Outpatient (CLI) | payer MEDICARE, MEDICAID ==
[~2020-04-02] MED LIST changes: -AMLO10TA5 PO; +AMLO1TAB25 PO; +SIME40TA PO
--- NOTE | 2020-05-07 15:57 | DEXA ---
AP SPINE L1 - L4 1.044 -1.2 -1.0 LT FEMUR TOTAL 0.971 -0.3 -0.2 LT NECK 0.981 -0.4 0.6 RT FEMUR TOTAL 0.933 -0.6 -0.4 RT NECK 1.045 0.1 1.1 TOTAL BODY TOTAL OTHER COMMENTS: Normal Bone Densitometry of the hips. There is low bone density of the spine, The density of the spine has increased 25.5% since the initial exam on 04/17/09. The increased 0.6% since the most recent exam on 07/15/2015. The density of the left hip has increased 20% since the initial exam on 04/17/2009. The density of the left hip has increased 6.6% since the most recent exam on 07/15/2015. The density of the right hip has increased 3.6% since the initial exam on 04/17/2009. The density of the right hip has increased 3.3% since the most recent exam on 07/15/2015. FOLLOW-UP: Recommendation for the next bone density exam: 2 years. VAN
== END ==
LOC: M WHC 09:12
PROVIDERS: ATTEND Family Medicine
DX: M81.0 Age-related osteoporosis without current pathological fracture (principal)

== ENCOUNTER → 2020-08-19 | Outpatient (CLI) | payer MEDICARE, MEDICAID ==
--- NOTE | 2020-08-19 13:55 | REP ---
INDICATION: SMOKER. COMPARISON: Chest CT dated 12/22 2017. TECHNIQUE: The study is performed without IV contrast. The images are presented at lung windowing only. FINDINGS: There is dependent atelectasis in the posterior lung aguilar. There are no lung masses or nodules. There are no infiltrates or pleural effusions. There are multiple old healed rib fractures posteriorly in the right 6th through 9th ribs IMPRESSION: Category 1 low-dose lung screening CT of the chest for the probability of malignancy is less than 1%. Depending on risk factors consider annual low-dose lung screening chest CT. There are multiple old right rib fractures posteriorly. <Electronically signed by Alfie Grey > 08/19/20 [id number]
== END ==
LOC: M RAD 09:31
PROVIDERS: ATTEND Physician Assistant
DX: F17.210 Nicotine dependence, cigarettes, uncomplicated (principal)

== ENCOUNTER 2020-09-08 20:00 | Inpatient (IN) | payer MEDICARE, MEDICAID ==
[~2020-09-08] VITALS: Ht 137.2 cm; Wt 70.8 kg
[2020-09-08 20:55] LABS: VENOUS BASE EXCESS -5.3 (-2.0-2.0); VENOUS HCO3 20.9 MEQ/L (23.0-27.0); VENOUS O2 SATURATION 74.4 % (60.0-80.0); VENOUS PARTIAL PRESSURE CO2 43.3 mmHg (38.0-50.0); VENOUS PARTIAL PRESSURE O2 41.7 mmHg (30.0-50.0); VENOUS PH 7.302 UNITS (7.330-7.430); VENOUS STANDARD HCO3 19.7 MEQ/L; VENOUS TOTAL CO2 22.3 MEQ/L (24.0-28.0)
[2020-09-08 20:57] LABS: BASO # 0.1 10^3/uL (0.0-0.2); BASO % 0.7 % (0.0-1.0); EOS # 0.3 10^3/uL (0.0-0.5); EOS % 4.1 % (0.0-3.0); HEMATOCRIT 40.6 % (42.0-52.0); HEMOGLOBIN 12.5 g/dl (13.5-17.5); LYMPH # 1.8 10^3/uL (1.5-5.0); LYMPH % 26.6 % (24.0-44.0); MEAN CORPUSCULAR HGB CONC 30.8 g/dl (32.0-36.5); MEAN CORPUSCULAR VOLUME 87.7 fl (80.0-96.0); MONO # 0.6 10^3/uL (0.0-0.8); MONO % 8.3 % (0.0-5.0); NEUTROPHILS # 4.1 10^3/uL (1.5-8.5); NEUTROPHILS % 59.9 % (36.0-66.0); PLATELET COUNT, AUTOMATED 244 10^3/uL (150-450); RED BLOOD COUNT 4.63 10^6/uL (4.30-6.10); WHITE BLOOD COUNT 6.9 10^3/uL (4.0-10.0)
[2020-09-08 21:00] LABS: APPEARANCE, URINE CLEAR (CLEAR); BACTERIA, URINE AUTO NEGATIVE (NEGATIVE); BILIRUBIN, URINE AUTO NEGATIVE (NEGATIVE); BLOOD, URINE BLOOD 1+ (NEGATIVE); COLOR, URINE STRAW (YELLOW); GLUCOSE, URINE (UA) AUTO NEGATIVE (NEGATIVE); KETONE, URINE AUTO NEGATIVE (NEGATIVE); LEUKOCYTE ESTERASE, URINE AUTO NEGATIVE (NEGATIVE); NITRITE, URINE AUTO NEGATIVE (NEGATIVE); PROTEIN, URINE AUTO NEGATIVE (NEGATIVE); RBC, URINE AUTO 0 /HPF (0-3); SPECIFIC GRAVITY URINE AUTO 1.005 (1.002-1.035); SQUAMOUS EPITHELIAL CELL UR AU 0 /HPF (0-6); UROBILINOGEN, URINE AUTO 0.2 mg/dL (0.0-2.0); WBC, URINE AUTO 0 /HPF (0-3)
[2020-09-08] MEDS: DOCUSATE SODIUM 100MG CAPSULE PO SCH (21:00)
--- NOTE | 2020-09-08 21:14 | REPVR ---
PROCEDURE INFORMATION: Exam: CT Head Without Contrast Exam date and time: 09/08/2020 8:50 PM Age: 70 years old Clinical indication: Other: P/w AMS vs multiple seizure R/O ich TECHNIQUE: Imaging protocol: Computed tomography of the head without contrast. Radiation optimization: All CT scans at this facility use at least one of these dose optimization techniques: automated exposure control; mA and/or kV adjustment per patient size (includes targeted exams where dose is matched to clinical indication); or iterative reconstruction. COMPARISON: CT Head without contrast 09/17/2016 9:52 AM FINDINGS: Brain: There are moderate periventricular and subcortical lucencies consistent with chronic microvascular ischemic changes. The krishnan-white differentiation is maintained. No hemorrhage. No edema. Cerebral ventricles: No ventriculomegaly. Bones/joints: Unremarkable. No acute fracture. Paranasal sinuses: Visualized sinuses are unremarkable. No fluid levels. Mastoid air cells: Visualized mastoid air cells are well aerated. Soft tissues: Unremarkable. IMPRESSION: No acute intracranial abnormality. Chronic microvascular ischemic changes. Electronically signed by: Petar Masters On 09/08/2020 21:14:46 PM
--- NOTE | 2020-09-08 21:28 | ED PDOC ---
Post-Departure Follow-Up 70yo M with multiple co-morbidities significant for seizures, dementia, HTN, and hypothyroidism presents from [facility] with recurrent seizures. Per the facility staff, the patient was noted to appear weak and his knees were buckling to the poin that he almost fell a few times throughout the day. He also had been having frequent episodes of starring off into space, which is consistent with his seizures that last approximately 60 seconds. However, he never has clusters of seizures which was the case today. He started having seizures since 6:30am, and had a cluster of 10-15 ninety minutes prior to arrival. He denies any symptoms. The staff also deny recent illness or symptoms. Of note, his last seizure was on July 19, and he was not taken to the ER at the time. He is A&O to self only, grossly neurologically intact, afebrile, hemodynamically stable and nontoxic appearing. His symptoms are concerning for an infectious process vs subtherapeutic antiepileptic drugs. I have a lower suspicion for ICH. Labs, imaging and EKG were obtained. Seizure precautions were maintained and he was placed on the color television console monitor. He was given Keppra 1g IV. His work up was notable for an elevated TSH, but otherwise unremarkable. Upon r eassessment, he continued to be clinically stable and seizure free while in the ED. I discussed the plan to admit him with his staff. I notified Dr. Presley of the admission and he accepted the patient to his service. He remained stable while under my care. CHARANJIT HERNANDEZ MD Sep 08, 2020 21:28
[2020-09-08 21:35] LABS: ALBUMIN 3.6 GM/DL (3.2-5.2); ALT/SGPT 16 U/L (12-78); BILIRUBIN,DIRECT < 0.1 MG/DL (0.0-0.2); BILIRUBIN,TOTAL 0.3 MG/DL (0.2-1.0); BLOOD UREA NITROGEN 19 MG/DL (7-18); CALCIUM LEVEL 8.9 MG/DL (8.8-10.2); CARBON DIOXIDE LEVEL 26 MEQ/L (21-32); CHLORIDE LEVEL 108 MEQ/L (98-107); CREATININE FOR GFR 0.77 MG/DL (0.70-1.30); FREE T4 1.03 NG/DL (0.76-1.46); GLOMERULAR FILTRATION RATE > 60.0 (>42); GLUCOSE, FASTING 93 MG/DL (70-100); SODIUM LEVEL 138 MEQ/L (136-145); TOTAL PROTEIN 6.5 GM/DL (6.4-8.2)
--- NOTE | 2020-09-08 21:38 | REPVR ---
PROCEDURE INFORMATION: Exam: XR Chest, 1 View Exam date and time: 09/08/2020 9:23 PM Age: 70 years old Clinical indication: Other: AMS TECHNIQUE: Imaging protocol: XR of the chest Views: 1 view. COMPARISON: CR Ribs uni W-PA CHEST ONLY 11/20/2019 7:11 PM FINDINGS: Lungs: Unremarkable. No consolidation. Pleural space: Unremarkable. No pleural effusion. No pneumothorax. Heart/Mediastinum: Unremarkable. No cardiomegaly. Bones/joints: Chronic right rib fractures. Degenerative changes of the spine. IMPRESSION: No acute abnormality. Electronically signed by: Petar Masters On 09/08/2020 21:38:44 PM
[2020-09-08] MEDS ORDERED: levETIRAcetam INJection 1,000 MG in D5W 100 ML IV ONE (23:30)
[2020-09-09] MEDS ORDERED: TOPI100T9 PO (00:43)
[2020-09-09] MEDS ORDERED: SYST0.6S OU (00:43)
[2020-09-09] MEDS ORDERED: CALC600T57 PO (00:43)
[2020-09-09] MEDS ORDERED: SPIR-10 PO (00:43)
[2020-09-09] MEDS ORDERED: MIRA1POW3 PO (00:43)
[2020-09-09] MEDS ORDERED: POTA10TA17 PO (00:43)
[2020-09-09] MEDS ORDERED: DOCU100C16 PO (00:43)
[2020-09-09] MEDS ORDERED: [UNRECOGNIZED DRUG - CODE] TOP (00:43)
[2020-09-09 01:10] LABS: RSV AMPLIFICATION NEGATIVE (NEGATIVE)
[2020-09-09] MEDS ORDERED: MOM 30ML SUSPENSION UDC PO PRN (01:15)
[2020-09-09] MEDS ORDERED: MAALOX 30 ML SUSP *UDC PO PRN (01:15)
[2020-09-09] MEDS ORDERED: ACETAMINOPHEN TAB 650MG DOSE (2X325MG) PO PRN (01:15)
--- NOTE | 2020-09-09 02:07 | HPEPDOC ---
General Date of Admission Sep 09, 2020 at 00:14 Date of Service: Sep 09, 2020 Attending Physician: KHLOE PLASENCIA MD Chief Complaint The patient is a 70-year-old male admitted with a reason for visit of Recurrent Seizures. Source: [facility] Caregiver/Aid History of Present Illness History of present illness: Mr. Terrell is a 70-year-old male patient with a known history of epilepsy, severe intellectual disability is brought in to the [facility] emergency department(as patient was awake, unresponsive and weak. Patient is alert but he is not conversant, history obtained from home care music therapist present at bedside Ms. Bernard . She reports at that on 5:30 PM patient had a near fall in his limbs were giving away, and later the patient was not responding verbally. He did not have any motor activity, loss of bowel and bladder, loss of consciousness, nausea, vomiting, headache or visual changes during this episode. And he had multiple episodes lasting from 20 seconds to 1 minute. As per the caregiver today's presentation is different from his typical seizure episodes where he has slurring speech and drooling. Patient's last noted she developed a little was on 07/19/2020 which lasted about 30 seconds and was not seen by a provider at that time. Past medical history: Severe intellectual disability Glaucoma Achondroplasia Anxiety/depression Epilepsy Hypertension Hypothyroidism GALLO on CPAP at home Past surgical history: None as per the caregiver Social history: Smoker, smokes 6-10 cigarettes per day, for most of his life. No alcohol use No illicit drug use Family History: Don't know REVIEW OF SYSTEMS: As per caregiver Constitutional: Denies having fever, headaches. Eyes: Denies any blurry vision or double vision. Cardiovascular: Denies any chest pain or palpitations. Respiratory: Denies shortness of breath and cough. Gastrointestinal (GI): Denies any nausea or vomiting. All other review of systems is negative. PHYSICAL EXAMINATION: Couldn't do a complete physical examination as patient was not following commands. General: Patient is awake, alert, not oriented but that is his baseline, laying in bed , no apparent distress. Eyes: Conjunctiva clear. Cardiovascular: S1, S2, normal rhythm, no murmur, rub, or gallop. Respiratory: Chest is clear to auscultation bilaterally, No rhonchi, wheezes or rubs. Abdomen: Soft, bowel sounds positive. Extremities: No clubbing or cyanosis. No edema, no tenderness. Central nervous system (DEER FARMER): Awake, alert and not oriented but that is his baseline. Motor: Strength normal upper extremities. Skin: No rashes, lesions, ulcerations, subcutaneous nodules or induration. Assessment: 70-year-old male patient with a known history of epilepsy, severe intellectual disability who lives in [facility] and was accompanied by a caregiver was brought in as he was nonresponsive verbally and tiredness. Given his intellectual disability he is not conversant and his history is obtained from the caregiver. In the ED he was given a loading dose of Keppra, and the hospitalist team was contacted for further management. Plan: Suspected seizure: - Patient is already on multiple medications for seizures at home. - He follows with [facility] for this condition. - Will get a lamotrigine levels to see if patient is compliant with the medication. - Patient did receive an loading dose of Keppra in the ED, he did not have any seizure activity in the hospital. - Consider consulting neurology in the morning. - Patient will need an EEG to see if patient is having seizures. - Caregiver requested for a mechanical soft diet. - Will continue home medications Hypertension: - Continue his home medication. Hypothyroidism: - Will continue his levothyroxine Anxiety/depression: - Continue his paroxetine 10 mg GALLO: - On CPAP at home, can continue wearing it. DVT prophylaxis: -Teds and sequentials. Code Status: Patient is full code as per one of the caregiver at [facility](Leo Carter) who I spoke to. Home Medications Scheduled Alendronate Sodium (Alendronate Sodium) 70 Mg Tab, 70 MG PO QWEEK, (Reported) TAKES ON SATURDAYS Amlodipine Besylate (Amlodipine Besylate) 10 Mg Tab, 10 MG PO DAILY, (Reported) HOLD IF SBP<110 Calcium Carbonate/Vitamin D3 (Calcium 600-Vit D3 200 Tablet) 1 Each Tablet, 1 TAB PO TID, (Reported) Carbamide Peroxide (Debrox) 6.5 % Joann, 5 DROP AU BID, (Reported) Clorazepate Dipotassium (Clorazepate Dipotassium) 3.75 Mg Tab, 11.25 MG PO BID, (Reported) Docusate Sodium (Docusate Sodium) 100 Mg Capsule, 100 MG PO DAILY, (Reported) Lamotrigine (Lamotrigine) 100 Mg Tab, 200 MG PO DAILY, (Reported) Lamotrigine (Lamotrigine) 100 Mg Tab, 300 MG PO QHS, (Reported) Latanoprost (Xalatan) 0.005 % Joann, 1 DROP OU QHS, (Reported) Levothyroxine Sodium (Synthroid) 125 Mcg Tab, 62.5 MCG PO DAILY, (Reported) Mineral Oil/Petrolat,Wht/Water (Lubriderm Daily Moisture Lot) 30 Ml Lotion, 1 DOSE TOP QHS, (Reported) APPLY TO FEET Multivitamins (Thera M Plus Tablet) 1 Tab Tab, 1 TAB PO DAILY, (Reported) Paroxetine HCl (Paxil) 10 Mg Tab, 10 MG PO DAILY, (Reported) Potassium Chloride (Potassium Chloride) 10 Meq Tab.er.prt, 10 MEQ PO BID, (Reported) Propylene Glycol (Systane Complete) 10 Ml Drops, 1 DROP OU QID, (Reported) Spironolactone (Spironolactone) 25 Mg Tablet, 25 MG PO BID, (Reported) Topiramate (Topiramate) 100 Mg Tablet, 300 MG PO BID, (Reported) Scheduled PRN Polyethylene Glycol 3350 (Miralax) 17 Gm Powd.pack, 17 GM PO ASDIRECTED PRN for CONSTIPATION, (Reported) AFTER DAY 3 AND 4 WITH NO BM Allergies Coded Allergies: risperidone (Verified Allergy, Unknown, 09/08/20) donepezil (Verified Adverse Reaction, Severe, seizures, 09/08/20) seizures lacosamide (Verified Adverse Reaction, Severe, increase in seizures, 09/08/20) increase in seizures A-FIB/CHADSVASC A-FIB History Current/History of A-Fib/PAF?: No Vital Signs Vital Signs Date Time Temp Pulse Resp B/P (MAP) Pulse Ox O2 Delivery O2 Flow Rate FiO2 09/09/20 00:32 141/74 (96) 09/09/20 00:31 66 09/08/20 21:00 99 09/08/20 20:26 96.9 24 Room Air Laboratory Data Labs 24H Laboratory Tests 2 09/08/20 20:36: Immature Granulocyte % (Auto) 0.4, Neutrophils (%) (Auto) 59.9, Lymphocytes (%) (Auto) 26.6, Monocytes (%) (Auto) 8.3H, Eosinophils (%) (Auto) 4.1H, Basophils (%) (Auto) 0.7, Neutrophils # (Auto) 4.1, Lymphocytes # (Auto) 1.8, Monocytes # (Auto) 0.6, Eosinophils # (Auto) 0.3, Basophils # (Auto) 0.1, Nucleated Red Blood Cells % (auto) 0.0, Urine Color STRAW, Urine Appearance CLEAR, Urine pH 6. 0, Urine Specific [place] 1.005, Urine Protein NEGATIVE, Urine Glucose (Auto)(UA) NEGATIVE, Urine Ketones (Auto) NEGATIVE, Urine Blood 1+H, Urine Nitrite NEGATIVE, Urine Bilirubin NEGATIVE, Urine Urobilinogen 0.2, Urine Leukocyte Esterase (Auto) NEGATIVE, Urine WBC (Auto) 0, Urine RBC (Auto) 0, Urin e Hyaline Casts (Auto) 0, Urine Bacteria (Auto) NEGATIVE, Urine Squamous Epithelial Cells 0, Urine Sperm (Auto) , Blood Gas Bicarbonate Standard 19.7, Venous Blood pH 7.302L, Venous Blood Partial Pressure CO2 43.3, Venous Blood Partial Pressure O2 41.7, Venous Blood Total Carbon Dioxide 22.3L, Venous Blood HCO3 20.9L, Venous Blood Oxygen Saturation 74.4, Venous Blood Base Excess -5.3L, Anion Gap 4L, Glomerular Filtration Rate > 60.0, Calcium Level 8.9, Total Bilirubin 0.3, Direct Bilirubin < 0.1, Aspartate Amino Transf (AST/SGOT) 15, Alanine Aminotransferase (ALT/SGPT) 16, Alkaline Phosphatase 105, Total Protein 6.5, Albumin 3.6, Albumin/Globulin Ratio 1.2, Thyroid Stimulating Hormone (TSH) 3.880H, Free Thyroxine 1.03 09/08/20 20:54: POC Lactate (Misc Panel) 1.10 09/08/20 20:59: Bedside Glucose (Misc Panel) 84, POC Troponin I (Misc) 0.00 09/09/20 00:22: Coronavirus (COVID-19)(PCR) NEGATIVE, Influenza Type A (RT-PCR) NEGATIVE, Influenza Type B (RT-PCR) NEGATIVE, Respiratory Syncytial Virus (PCR) NEGATIVE CBC/BMP Laboratory Tests 09/08/20 20:36 Microbiology Microbiology 09/08/20 Blood Culture, Received Pending 09/08/20 Urine Culture, Received Pending Plan / VTE VTE Prophylaxis Ordered?: Yes GME ATTESTATION GME ATTESTATION My faculty preceptor for this patient encounter was physically present during the encounter and was fully available. All aspects of the patient interview, exa mination, medical decision making process, and medical care plan development were reviewed and approved by the faculty preceptor. The faculty preceptor is aware and concurs with the plan as stated in the body of this note and will attest to such by his/her cosignature. ATTENDING NOTE Jeevan Schwab, have independently examined this patient and performed my own physical exam, as well as reviewed the documentation and edited where necessary. I have discussed in detail with the resident / student the findings and plan of treatment as documented by the resident / student and edited their note. I agree with their findings and treatment plan and have edited their documentation. I will continue to follow the patient during this hospital stay. # Suspected seizures: Takes lamictal, clorazepate, topamax. Continue home meds. Fu lamictal level. Compliance questionable. Received Keppra loading dose in the ED. No more seizure activity witnessed. Consider consulting neurology in the morning. Rest per resident note Pallavi Vivar MD Sep 09, 2020 02:07 KHLOE PLASENCIA MD Sep 09, 2020 05:35
[2020-09-09] MEDS ORDERED: MIRALAX *UNIT DOSE* 17GM PACKET PO PRN (02:15)
[2020-09-09 03:30] VITALS: BP 100/65
[2020-09-09 06:00] VITALS: BP 138/78
--- NOTE | 2020-09-09 07:40 | ECGEPIP ---
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
[2020-09-09] MEDS ORDERED: lamoTRIgine 100MG TAB PO SCH ×2 (09:00→21:00)
[2020-09-09] MEDS: TOPIRAMATE (TopAMAX) 100 MG TAB PO SCH ×2 (09:08→20:30)
[2020-09-09] MEDS: DOCUSATE SODIUM 100MG CAPSULE PO SCH ×3 (09:09→20:29)
[2020-09-09] MEDS: LEVOTHYROXINE 62.5MCG PER 1/2 TAB (0.0625MG) PO SCH (09:09)
[2020-09-09] MEDS: POTASSIUM CHLORIDE 10 MEQ SR TABLET PO SCH ×2 (09:10→20:30)
[2020-09-09] MEDS: MULTIVITAMINS/MINERALS THERAP 1 TAB PO SCH (09:10)
[2020-09-09] MEDS: PARoxetine 10MG TABLET PO SCH (09:10)
[2020-09-09] MEDS: NICOTINE 14 MG/24 HR TRANSDERMAL TD SCH (09:11)
[2020-09-09] MEDS: amLODIPine 10 MG TAB PO SCH (09:11)
[2020-09-09] MEDS: SPIRONOLACTONE 25 MG TAB PO SCH ×2 (09:11→20:30)
[2020-09-09] MEDS: CARBAMIDE PEROXIDE 6.5% OTIC SOLN 15ML AU SCH ×2 (09:12→20:29)
[2020-09-09 10:00] VITALS: BP 105/70
[2020-09-09] MEDS: CLORAZEPATE 3.75 MG TAB PO SCH ×2 (10:50→20:29)
[2020-09-09 14:00] VITALS: BP 105/67
[2020-09-09 18:00] VITALS: BP 98/65
--- NOTE | 2020-09-09 19:14 | IPNPDOC ---
Subjective Date Seen The patient was seen on 09/09/20. Subjective Chief Complaint/HPI Mr. Terrell is a 70 year old male from [facility] for severe intellectual disability here for seizure like activity. No events this morning or afternoon. No reoccurrence of seizure. 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 He denies any pain or dyspnea. Spoke with Neurology, Dr. Rick. Recommended increasing Lamictal. Objective Physical Examination General Exam: Positive: No Acute Distress Eye Exam: Positive: EOMI; Negative: Sclera icteric Neck Exam: Positive: Supple Chest Exam: Positive: Clear to auscultation; Negative: Rales, Rhonchi, Wheezing Heart Exam: Positive: Rate Normal, Regular Rhythm Abdomen Exam: Positive: Normal bowel sounds, Soft; Negative: Tenderness Extremity Exam: Negative: Edema Skin Exam: Positive: Nl turgor and temperature Neuro Exam: Positive: Other (Moves limbs independently) Psych Exam: Positive: Anxiety (wants to go home soon) Assessment /Plan Assessment Mr. Terrell is a 70 year old male from [facility] for severe intellectual disability here for seizure like activity. Neurology recommended obtaining lamotrigine level which was done on admission. Also recommended Topiramate level, but that would have to been done prior to receiving is Topiramate inpatient. We are not able to do Topiramate level at this time since he already had a dose. EEG pending. If no seizure activity tonight, plan for discharge tomorrow back to [facility] Plan/VTE VTE Prophylaxis Ordered?: Yes Disposition 1. Breakthrough seizure in patient with epilepsy -No seizure while inpatient, continue seizure precautions -EEG obtained today -Spoke with neurology, recommended increasing lamotrigine from 200mg AM 300mg PM to 300mg BID -Otherwise continue lamotrigine, topiramate, and clorazepate -No obvious cause, no signs of infection, no UTI or PNA, and CT head unremarkable 2. Hypertension -Blood pressure controlled -Continue amlodipine and spironolactone 3. Hypothyroidism -Levothyroxine 4. Anxiety/depression -Paroxetine 5. GALLO -CPAP at night 6. DVT ppx -SCD and TEDs Disposition: If no seizure tonight, anticipate discharge back to [facility] tomorrow VS, I&O, 24H, Fishbone Vital Signs/I&O Vital Signs Date Time Temp Pulse Resp B/P (MAP) Pulse Ox O2 Delivery O2 Flow Rate FiO2 09/09/20 14:00 96.4 76 18 105/67 (80) 98 Room Air I&O- Last 24 Hours up to 6 AM 09/09/20 06:00 Intake Total 110 ml Output Total 500 ml Balance -390 ml Laboratory Data 24H LABS Laboratory Tests 2 09/08/20 20:36: Immature Granulocyte % (Auto) 0.4, Neutrophils (%) (Auto) 59.9, Lymphocytes (%) (Auto) 26.6, Monocytes (%) (Auto) 8.3H, Eosinophils (%) (Auto) 4.1H, Basophils (%) (Auto) 0.7, Neutrophils # (Auto) 4.1, Lymphocytes # (Auto) 1.8, Monocytes # (Auto) 0.6, Eosinophils # (Auto) 0.3, Basophils # (Auto) 0.1, Nucleated Red Blood Cells % (auto) 0.0, Urine Color STRAW, Urine Appearance CLEAR, Urine pH 6.0, Urine Specific [place] 1.005, Urine Protein NEGATIVE, Urine Glucose (Auto)(UA) NEGATIVE, Urine Ketones (Auto) NEGATIVE, Urine Blood 1+H, Urine Nitrite NEGATIVE, Urine Bilirubin NEGATIVE, Urine Urobilinogen 0.2, Urine Leukocyte Esterase (Auto) NEGATIVE, Urine WBC (Auto) 0, Urine RBC (Auto) 0, Urine Hyaline Casts (Auto) 0, Urine Bacteria (Auto) NEGATIVE, Urine Squamous Epithelial Cells 0, Urine Sperm (Auto) , Blood Gas Bicarbonate Standard 19.7, Venous Blood pH 7.302L, Venous Blood Partial Pressure CO2 43.3, Venous Blood Partial Pressure O2 41.7, Venous Blood Total Carbon Dioxide 22.3L, Venous Blood HCO3 20.9L, Venous Blood Oxygen Saturation 74.4, Venous Blood Base Excess -5.3L, Anion Gap 4L, Glomerular Filtration Rate > 60.0, Calcium Level 8.9, Total Bilirubin 0.3, Direct Bilirubin < 0.1, Aspartate Amino Transf (AST/SGOT) 15, Alanine Aminotransferase (ALT/SGPT) 16, Alkaline Phosphatase 105, Total Protein 6.5, Albumin 3.6, Albumin/Globulin Ratio 1.2, Thyroid Stimulating Hormone (TSH) 3.880H, Free Thyroxine 1.03 09/08/20 20:54: POC Lactate (Misc Panel) 1.10 09/08/20 20:59: Bedside Glucose (Misc Panel) 84, POC Troponin I (Misc) 0.00 09/09/20 00:22: Coronavirus (COVID-19)(PCR) NEGATIVE, Influenza Type A (RT-PCR) NEGATIVE, Influenza Type B (RT-PCR) NEGATIVE, Respiratory Syncytial Virus (PCR) NEGATIVE 09/09/20 10:45: Lab Scanned Report Miscellaneous Lab CBC/BMP Laboratory Tests 09/08/20 20:36 Microbiology Microbiology 09/08/20 Blood Culture, Received Pending 09/08/20 Urine Culture, Received Pending ELIDIA ANDRADE DO Sep 09, 2020 16:42
[2020-09-09] MEDS ORDERED: LATANOPROST 0.005% OPHTH SOLN 2.5 ML OU SCH (21:00)
[2020-09-09 22:00] VITALS: BP 106/67
[2020-09-10 02:00] VITALS: BP 111/68
[2020-09-10 05:47] VITALS: BP 140/78
[2020-09-10] MEDS: LEVOTHYROXINE 62.5MCG PER 1/2 TAB (0.0625MG) PO SCH (05:49)
[2020-09-10 06:14] LABS: HEMATOCRIT 38.5 % (42.0-52.0); MEAN CORPUSCULAR HEMOGLOBIN 27.2 pg (27.0-33.0); MEAN CORPUSCULAR HGB CONC 31.2 g/dl (32.0-36.5); MEAN CORPUSCULAR VOLUME 87.3 fl (80.0-96.0); PLATELET COUNT, AUTOMATED 239 10^3/uL (150-450); RED BLOOD COUNT 4.41 10^6/uL (4.30-6.10); WHITE BLOOD COUNT 8.8 10^3/uL (4.0-10.0)
[2020-09-10 06:46] LABS: ALBUMIN 3.4 GM/DL (3.2-5.2); ALT/SGPT 16 U/L (12-78); BILIRUBIN,TOTAL 0.2 MG/DL (0.2-1.0); BLOOD UREA NITROGEN 20 MG/DL (7-18); CARBON DIOXIDE LEVEL 25 MEQ/L (21-32); CHLORIDE LEVEL 108 MEQ/L (98-107); CREATININE FOR GFR 0.84 MG/DL (0.70-1.30); GLOMERULAR FILTRATION RATE > 60.0 (>42); GLUCOSE, FASTING 86 MG/DL (70-100); MAGNESIUM LEVEL 2.3 MG/DL (1.8-2.4); SODIUM LEVEL 140 MEQ/L (136-145); TOTAL PROTEIN 6.1 GM/DL (6.4-8.2)
[2020-09-10] MEDS: MULTIVITAMINS/MINERALS THERAP 1 TAB PO SCH (07:51)
[2020-09-10] MEDS: DOCUSATE SODIUM 100MG CAPSULE PO SCH ×2 (07:52→08:03)
[2020-09-10] MEDS: POTASSIUM CHLORIDE 10 MEQ SR TABLET PO SCH (07:52)
[2020-09-10] MEDS: PARoxetine 10MG TABLET PO SCH (07:52)
[2020-09-10] MEDS: CLORAZEPATE 3.75 MG TAB PO SCH (07:54)
[2020-09-10] MEDS: TOPIRAMATE (TopAMAX) 100 MG TAB PO SCH (07:54)
[2020-09-10] MEDS: NICOTINE 14 MG/24 HR TRANSDERMAL TD SCH (07:55)
[2020-09-10] MEDS: SPIRONOLACTONE 25 MG TAB PO SCH (07:55)
[2020-09-10 07:56] VITALS: BP 133/74
[2020-09-10] MEDS: amLODIPine 10 MG TAB PO SCH (07:56)
[2020-09-10] MEDS: CARBAMIDE PEROXIDE 6.5% OTIC SOLN 15ML AU SCH (08:01)
[2020-09-10] MEDS ORDERED: lamoTRIgine 100MG TAB PO SCH (09:00)
[2020-09-10] MEDS ORDERED: LAMO100T80 PO (09:10)
--- NOTE | 2020-09-10 23:46 | DS.PDOC ---
Discharge Summary General Date of Admission Sep 09, 2020 at 00:14 Date of Discharge Sep 10, 2020 Attending Physician: ELIDIA ANDRADE DO Discharge Summary PROCEDURES PERFORMED DURING STAY: None ADMITTING DIAGNOSES: 1. Breakthrough seizure in patient with epilepsy 2. Hypertension 3. Hypothyroidism 4. Anxiety/depression 5. GALLO DISCHARGE DIAGNOSES: 1. Breakthrough seizure in patient with epilepsy 2. Hypertension 3. Hypothyroidism 4. Anxiety/depression 5. GALLO COMPLICATIONS/CHIEF COMPLAINT: Recurrent Seizures. HISTORY OF PRESENT ILLNESS: Mr. Terrell is a 70 year old male from [facility] with severe intellectual disability and epilepsy here with seizure like event. Caregiver Ms. Bernard was present on day of admission. At 5:30PM, patient had a near fall, his limbs were giving away. Then patient was not responding verbally. Denied motor activity, loss of bowel/bladder, nausea, vomiting, headache, or visual changes during event. He had multiple episodes lasting 20 seconds to 1 minute where he was not responding. This is different from his typical seizure episodes where he has slurred speech and drooling. HOSPITAL COURSE: While in the ED he was loaded with Keppra. Lamotrigine level was ordered but not topiramate level. He was then restarted on all of his seizure medications (lamotrigine, clorazepate, and topiramate). The next day, patient had an EEG. Work up negative for infectious causes. No signs of UTI or pneumonia. No fever or leukocytosis. I spoke with Neurology, Dr. Rick. Recommended increasing lamotrigine from 200mg AM and 300mg PM to 300mg BID. Otherwise, we watched the patient for 24 hours. No re-occurrence of seizure. Today, he was anxious to go back home. He felt well and was subsequently discharged DISCHARGE MEDICATIONS: Please see below. ALLERGIES: Please see below. PHYSICAL EXAMINATION ON DISCHARGE: VITAL SIGNS: Please see below. GENERAL: Comfortable, no apparent distress HEENT: EOMI, sclera clear CARDIOVASCULAR EXAMINATION: Regular rate and rhythm RESPIRATORY EXAMINATION: Lungs clear to auscultation bilaterally ABDOMINAL EXAMINATION: Soft, non-tender, normal bowel sounds EXTREMITIES: No significant pitting edema SKIN: Warm and dry PSYCHIATRIC EXAMINATION: Anxious to go home LABORATORY DATA: Please see below. IMAGING: CT head No acute intracranial abnormality. Chronic microvascular ischemic changes. CXR No acute abnormality. PROGNOSIS: Good ACTIVITY: As tolerated. DIET: Mechanical soft DISCHARGE PLAN: Return to [facility] DISPOSITION: 01 Home, Self-Care. DISCHARGE INSTRUCTIONS: 1. Follow up with PCP within 1 week 2. Follow up with neurology in 1 week ITEMS TO FOLLOWUP ON ON OUTPATIENT: 1. EEG 2. Lamotrigine level DISCHARGE CONDITION: Stable. Total time spent on discharge planning, discharge summary, and medication reconciliation: 45 minutes Vital Signs/I&Os Vital Signs Date Time Temp Pulse Resp B/P (MAP) Pulse Ox O2 Delivery O2 Flow Rate FiO2 09/10/20 07:56 76 133/74 09/10/20 05:47 97.2 18 100 Room Air I&O- Last 24 Hours up to 6 AM 09/10/20 06:00 Intake Total 2520 ml Output Total 0 ml Balance 2520 ml Laboratory Data Labs 24H Laboratory Tests 2 09/10/20 05:47: Nucleated Red Blood Cells % (auto) 0.0, Anion Gap 7L, Glomerular Filtration Rate > 60.0, Calcium Level 9.0, Magnesium Level 2.3, Total Bilirubin 0.2, Aspartate Amino Transf (AST/SGOT) 12, Alanine Aminotransferase (ALT/SGPT) 16, Alkaline Phosphatase 102, Total Protein 6.1L, Albumin 3.4, Albumin/Globulin Ratio 1.3 CBC/BMP Laboratory Tests 09/10/20 05:47 Microbiology Microbiology 09/08/20 Blood Culture - Preliminary, Resulted No Growth after 48 hours. All Specime... 09/08/20 Urine Culture - Final, Complete Discharge Medications Scheduled Alendronate Sodium (Alendronate Sodium) 70 Mg Tab, 70 MG PO QWEEK, (Reported) TAKES ON SATURDAYS Amlodipine Besylate (Amlodipine Besylate) 10 Mg Tab, 10 MG PO DAILY, (Reported) HOLD IF SBP<110 Calcium Carbonate/Vitamin D3 (Calcium 600-Vit D3 200 Tablet) 1 Each Tablet, 1 TAB PO TID, (Reported) Carbamide Peroxide (Debrox) 6.5 % Joann, 5 DROP AU BID, (Reported) Clorazepate Dipotassium (Clorazepate Dipotassium) 3.75 Mg Tab, 11.25 MG PO BID, (Reported) Docusate Sodium (Docusate Sodium) 100 Mg Capsule, 100 MG PO DAILY, (Reported) Lamotrigine (Lamotrigine) 100 Mg Tablet, 300 MG PO BID Latanoprost (Xalatan) 0.005 % Joann, 1 DROP OU QHS, (Reported) Levothyroxine Sodium (Synthroid) 125 Mcg Tab, 62.5 MCG PO DAILY, (Reported) Mineral Oil/Petrolat,Wht/Water (Lubriderm Daily Moisture Lot) 30 Ml Lotion, 1 DOSE TOP QHS, (Reported) APPLY TO FEET Multivitamins (Thera M Plus Tablet) 1 Tab Tab, 1 TAB PO DAILY, (Reported) Paroxetine HCl (Paxil) 10 Mg Tab, 10 MG PO DAILY, (Reported) Potassium Chloride (Potassium Chloride) 10 Meq Tab.er.prt, 10 MEQ PO BID, (Reported) Propylene Glycol (Systane Complete) 10 Ml Drops, 1 DROP OU QID, (Reported) Spironolactone (Spironolactone) 25 Mg Tablet, 25 MG PO BID, (Reported) Topiramate (Topiramate) 100 Mg Tablet, 300 MG PO BID, (Reported) Scheduled PRN Polyethylene Glycol 3350 (Miralax) 17 Gm Powd.pack, 17 GM PO ASDIRECTED PRN for CONSTIPATION, (Reported) AFTER DAY 3 AND 4 WITH NO BM Allergies Coded Allergies: risperidone (Verified Allergy, Unknown, 09/08/20) donepezil (Verified Adverse Reaction, Severe, seizures, 09/09/20) lacosamide (Verified Adverse Reaction, Severe, increase in seizures, 09/09/20) ELIDIA ANDRADE DO Sep 10, 2020 23:46
--- NOTE | 2020-09-11 11:24 | EEG ---
ELECTROENCEPHALOGRAM DATE: 09/09/2020 DIAGNOSIS: Seizures. EEG# [id number] REFERRING PHYSICIAN: Ricky Presley MD HISTORY: Patient is a 70-year-old man with history of epilepsy and severe developmental delay, who was brought to [facility] after being nonresponsive verbally and tired. This EEG was done to rule out encephalopathy and epileptic potential. He is currently taking Tranxene, Lamictal, Topamax, Paxil, etc. TECHNICAL DESCRIPTION: This digital EEG was recorded by 21-scalp, ear, and two EKG electrodes and was reviewed in bipolar and referential montages following reformatting in 10-20 international electrode placement system. INTERPRETATION: Patient was noted to be in awake and drowsy states during this EEG. Resting and awake background rhythm consisted of Hz theta activity measuring 15-40 microvolts in amplitude, which was symmetric bilaterally. Stage 2 and 3 sleep were reviewed and symmetric bilaterally. Hyperventilation could not be performed. Photic stimulation remained unremarkable. EKG revealed normal sinus rhythm. Bilateral independent and synchronous periodic lateralized epileptiform discharges (PLEDs) were noted. No relevant clinical activity was noted. CONCLUSION: This EEG in awake and drowsy states is abnormal due to two reasons. Bilateral independent and synchronous periodic lateralizing epileptiform discharges (PLEDs) were noted, consistent with focal cortical structure or functional abnormality with epileptic potential. No clinical or electrographic seizures were noted. In addition, mild generalized slowing is consistent with nonspecific diffuse cerebral dysfunction such as seen in encephalopathy due to multiple potential causes. Clinical correlation is recommended.
== END 2020-09-10 10:30 | disposition home or self-care (01) | DRG 101 ==
LOC: M ED 20:00 → M ED INP 09-09 00:14 → M MS5PR 09-09 00:14
PROVIDERS: ADMIT Family Medicine; ATTEND Internal Medicine
DX: G40.909 Epilepsy, unspecified, not intractable, without status epilepticus (principal); F72 Severe intellectual disabilities; E03.9 Hypothyroidism, unspecified; G47.33 Obstructive sleep apnea (adult) (pediatric); I10 Essential (primary) hypertension; F41.9 Anxiety disorder, unspecified; F32.9 Major depressive disorder, single episode, unspecified; Z79.899 Other long term (current) drug therapy; F17.210 Nicotine dependence, cigarettes, uncomplicated

== ENCOUNTER → 2020-11-11 | Outpatient (REF) | payer MEDICARE, MEDICAID ==
[~2020-11-11] MED LIST changes: -ALEN70TA74 PO; +ALEN70TA82 PO; +CALC600T57 PO; +DOCU100C16 PO; +LAMO100T80 PO; +MIRA1POW3 PO; +POTA10TA17 PO; -SIME40TA PO; +SIME80CH6 PO; +SPIR-10 PO; +SYST0.6S OU; +TOPI100T9 PO; +[UNRECOGNIZED DRUG - CODE] TOP
[2020-11-11 17:07] LABS: CHOLESTEROL RISK RATIO 3.441 (<5); FREE T4 1.02 NG/DL (0.76-1.46); THYROID STIMULATING HORMONE 4.42 uIU/ML (0.358-3.740); TOTAL 25(OH) VITAMIN D 26.9 NG/ML (30.0-100.0)
== END ==
LOC: M SFHCADAM 11:36
PROVIDERS: ATTEND Physician Assistant
DX: E03.9 Hypothyroidism, unspecified (principal); E55.9 Vitamin D deficiency, unspecified; Z13.220 Encounter for screening for lipoid disorders; Z12.5 Encounter for screening for malignant neoplasm of prostate
CPT/HCPCS: 80061; 82306; 84439; 84443; G0103

== ENCOUNTER → 2021-01-15 | Outpatient (REF) | payer MEDICARE, MEDICAID ==
[2021-01-18 17:07] LABS: LAMOTRIGINE (LAMICTAL) 5.9 ug/mL (2.0-20.0); TOPIRAMATE LEVEL 13.4 ug/mL (2.0-25.0)
== END ==
LOC: M LABDRWAD 17:10
PROVIDERS: ATTEND Physician Assistant Medical
DX: R56.9 Unspecified convulsions (principal)

== ENCOUNTER → 2021-04-14 | Outpatient (REF) | payer MEDICARE, MEDICAID ==
[2021-04-14 18:51] LABS: BASO # 0.1 10^3/uL (0.0-0.2); BASO % 0.6 % (0.0-1.0); EOS # 0.4 10^3/uL (0.0-0.5); EOS % 4.3 % (0.0-3.0); HEMATOCRIT 41.5 % (42.0-52.0); HEMOGLOBIN 12.6 g/dl (13.5-17.5); LYMPH # 3.2 10^3/uL (1.5-5.0); LYMPH % 38.7 % (24.0-44.0); MEAN CORPUSCULAR HEMOGLOBIN 26.8 pg (27.0-33.0); MEAN CORPUSCULAR HGB CONC 30.4 g/dl (32.0-36.5); MEAN CORPUSCULAR VOLUME 88.3 fl (80.0-96.0); MONO # 0.7 10^3/uL (0.0-0.8); MONO % 8.1 % (2.0-8.0); NEUTROPHILS % 47.9 % (36.0-66.0); PLATELET COUNT, AUTOMATED 279 10^3/uL (150-450); WHITE BLOOD COUNT 8.4 10^3/uL (4.0-10.0)
[2021-04-14 19:21] LABS: ALBUMIN 3.9 GM/DL (3.2-5.2); ALT/SGPT 23 U/L (12-78); BILIRUBIN,TOTAL 0.2 MG/DL (0.2-1.0); BLOOD UREA NITROGEN 15 MG/DL (7-18); CALCIUM LEVEL 8.9 MG/DL (8.8-10.2); CARBON DIOXIDE LEVEL 23 MEQ/L (21-32); CHLORIDE LEVEL 108 MEQ/L (98-107); CREATININE FOR GFR 0.64 MG/DL (0.70-1.30); GLOMERULAR FILTRATION RATE > 60.0 (>42); GLUCOSE, FASTING 53 MG/DL (70-100); POTASSIUM SERUM 4.3 MEQ/L (3.5-5.1); SODIUM LEVEL 140 MEQ/L (136-145); TOTAL PROTEIN 6.9 GM/DL (6.4-8.2)
== END ==
LOC: M SFHCLERA 11:03 → M SFHCADAM 12:00
PROVIDERS: ATTEND Nurse Practitioner Family
DX: R39.81 Functional urinary incontinence (principal)

== ENCOUNTER → 2021-04-14 | Outpatient (REF) | payer MEDICARE, MEDICAID | LOC: M SFHCLUC 19:10 | PROVIDERS: ATTEND Nurse Practitioner Family | DX: R39.81 Functional urinary incontinence (principal) | CPT/HCPCS: 80053; 81002; 85025; 87086; G0103; G0463 ==

== ENCOUNTER → 2021-05-07 | Outpatient (CLI) | payer MEDICARE, MEDICAID ==
--- NOTE | 2021-05-07 17:10 | REP ---
INDICATION: URINARY INCONTINENCE COMPARISON: None TECHNIQUE: Real time B-mode ultrasound examination using curved array transducer. FINDINGS: Bladder is normal in appearance without wall thickening or mass lesion. Bilateral ureteral jets were not visualized during examination. Prevoid bladder measures 10.3 x 7.6 x 6.3 cm (322 cc) Postvoid bladder measures 7.4 x 6.5 x 5.2 cm (163 cc) Postvoid residual: 51% IMPRESSION: 1. Abnormally elevated postvoid residual volume may be related to outlet obstruction. <Electronically signed by Carlyle Mayer > 05/07/21 [id number]
== END ==
LOC: M RAD 16:10
PROVIDERS: ATTEND Family Medicine
DX: R32 Unspecified urinary incontinence (principal); R39.198 Other difficulties with micturition

== ENCOUNTER → 2021-11-18 | Outpatient (REF) | payer MEDICARE, MEDICAID ==
[2021-11-18 13:14] LABS: HEMATOCRIT 39.3 % (42.0-52.0); HEMOGLOBIN 12.3 g/dl (13.5-17.5); MEAN CORPUSCULAR HEMOGLOBIN 26.2 pg (27.0-33.0); MEAN CORPUSCULAR HGB CONC 31.3 g/dl (32.0-36.5); MEAN CORPUSCULAR VOLUME 83.8 fl (80.0-96.0); PLATELET COUNT, AUTOMATED 271 10^3/uL (150-450); RED BLOOD COUNT 4.69 10^6/uL (4.30-6.10); WHITE BLOOD COUNT 8.1 10^3/uL (4.0-10.0)
[2021-11-18 13:53] LABS: ALBUMIN 3.7 GM/DL (3.2-5.2); ALT/SGPT 26 U/L (12-78); BILIRUBIN,TOTAL 0.1 MG/DL (0.2-1.0); BLOOD UREA NITROGEN 17 MG/DL (7-18); CALCIUM LEVEL 8.8 MG/DL (8.8-10.2); CARBON DIOXIDE LEVEL 25 MEQ/L (21-32); CHLORIDE LEVEL 106 MEQ/L (98-107); CHOLESTEROL LEVEL 170 MG/DL (<200); CHOLESTEROL RISK RATIO 4.473 (<5); CREATININE FOR GFR 0.75 MG/DL (0.70-1.30); FREE T4 0.99 NG/DL (0.76-1.46); GLOMERULAR FILTRATION RATE > 60.0 (>42); GLUCOSE, FASTING 116 MG/DL (70-100); HDL CHOLESTEROL 38 MG/DL (>40); LDL CHOLESTEROL 69 MG/DL (<100); NON-HDL-C 132 MG/DL; POTASSIUM SERUM 4.4 MEQ/L (3.5-5.1); SODIUM LEVEL 135 MEQ/L (136-145); TOTAL 25(OH) VITAMIN D 38.9 NG/ML (30.0-100.0); TOTAL PROTEIN 6.7 GM/DL (6.4-8.2); TRIGLYCERIDES LEVEL 313 MG/DL (<150)
[2021-11-18 14:50] LABS: HEMOGLOBIN A1c 5.3 %
== END ==
LOC: M SFHCADAM 09:45
PROVIDERS: ATTEND Physician Assistant
DX: E03.9 Hypothyroidism, unspecified (principal); I10 Essential (primary) hypertension; E55.9 Vitamin D deficiency, unspecified; F17.210 Nicotine dependence, cigarettes, uncomplicated; M81.0 Age-related osteoporosis without current pathological fracture; Z13.220 Encounter for screening for lipoid disorders; Z79.899 Other long term (current) drug therapy

== ENCOUNTER → 2021-11-30 | Outpatient (CLI) | payer MEDICARE, MEDICAID | LOC: M RAD 08:26 | PROVIDERS: ATTEND Physician Assistant | DX: Z12.2 Encounter for screening for malignant neoplasm of respiratory organs (principal); F17.210 Nicotine dependence, cigarettes, uncomplicated; Z53.9 Procedure and treatment not carried out, unspecified reason ==

== ENCOUNTER → 2021-12-03 | Outpatient (CLI) | payer MEDICARE, MEDICAID | LOC: M RAD 10:44 | PROVIDERS: ATTEND Physician Assistant | DX: F17.210 Nicotine dependence, cigarettes, uncomplicated (principal) ==

== ENCOUNTER → 2022-04-18 | Outpatient (CLI) | payer MEDICARE, MEDICAID ==
[~2022-04-18] MED LIST changes: +POTA-150 PO; -POTA10TA17 PO
== END ==
LOC: M WHC 10:27
PROVIDERS: ATTEND Physician Assistant
DX: M81.0 Age-related osteoporosis without current pathological fracture (principal); M85.89 Other specified disorders of bone density and structure, multiple sites

== ENCOUNTER → 2022-05-24 | Outpatient (REF) | payer MEDICARE, MEDICAID ==
[2022-05-24 13:19] LABS: HEMATOCRIT 37.7 % (42.0-52.0); HEMOGLOBIN 11.8 g/dl (13.5-17.5); MEAN CORPUSCULAR HEMOGLOBIN 26.3 pg (27.0-33.0); MEAN CORPUSCULAR HGB CONC 31.3 g/dl (32.0-36.5); MEAN CORPUSCULAR VOLUME 84.2 fl (80.0-96.0); PLATELET COUNT, AUTOMATED 229 10^3/uL (150-450); RED BLOOD COUNT 4.48 10^6/uL (4.30-6.10); WHITE BLOOD COUNT 7.3 10^3/uL (4.0-10.0)
[2022-05-24 14:08] LABS: ALBUMIN 3.6 GM/DL (3.2-5.2); ALT/SGPT 17 U/L (12-78); BILIRUBIN,TOTAL 0.2 MG/DL (0.2-1.0); BLOOD UREA NITROGEN 17 MG/DL (7-18); CALCIUM LEVEL 9.1 MG/DL (8.8-10.2); CARBON DIOXIDE LEVEL 25 MEQ/L (21-32); CHLORIDE LEVEL 104 MEQ/L (98-107); CREATININE FOR GFR 0.79 MG/DL (0.70-1.30); FREE T4 1.11 NG/DL (0.76-1.46); GLOMERULAR FILTRATION RATE > 60.0 (>42); GLUCOSE, FASTING 80 MG/DL (70-100); POTASSIUM SERUM 4.2 MEQ/L (3.5-5.1); SODIUM LEVEL 134 MEQ/L (136-145); TOTAL PROTEIN 6.7 GM/DL (6.4-8.2)
== END ==
LOC: M SFHCADAM 08:43
PROVIDERS: ATTEND Physician Assistant
DX: E03.9 Hypothyroidism, unspecified (principal); I10 Essential (primary) hypertension; F17.210 Nicotine dependence, cigarettes, uncomplicated; Z12.5 Encounter for screening for malignant neoplasm of prostate
CPT/HCPCS: 80053; 84439; 84443; 85027; G0103

== ENCOUNTER → 2022-11-24 | Outpatient (REF) | payer MEDICARE, MEDICAID ==
[~2022-11-24] MED LIST changes: -PAXI10TA12 PO; +PAXI10TA13 PO
[2022-11-24 14:56] LABS: BASO % 0.6 % (0.0-1.0); EOS # 0.4 10^3/uL (0.0-0.5); EOS % 5.7 % (0.0-3.0); HEMATOCRIT 39.7 % (42.0-52.0); HEMOGLOBIN 12.2 g/dl (13.5-17.5); LYMPH # 1.8 10^3/uL (1.5-5.0); MEAN CORPUSCULAR HGB CONC 30.7 g/dl (32.0-36.5); MEAN CORPUSCULAR VOLUME 91.1 fl (80.0-96.0); MONO # 0.6 10^3/uL (0.0-0.8); MONO % 8.5 % (2.0-8.0); NEUTROPHILS % 58.9 % (36.0-66.0); PLATELET COUNT, AUTOMATED 219 10^3/uL (150-450); RED BLOOD COUNT 4.36 10^6/uL (4.30-6.10); WHITE BLOOD COUNT 6.8 10^3/uL (4.0-10.0)
[2022-11-24 15:29] LABS: IRON (FE) 69 UG/DL (65-175); TOTAL IRON BINDING CAPACITY 329 UG/DL (250-425)
[2022-11-24 18:07] LABS: ALBUMIN 3.5 G/DL (3.2-5.2); ALKALINE PHOSPHATASE 134 U/L (46-116); ALT/SGPT 14 U/L (7.0-40); AST/SGOT 14 U/L (<34); BILIRUBIN,TOTAL 0.2 MG/DL (0.3-1.2); BLOOD UREA NITROGEN 16 MG/DL (9-23); CARBON DIOXIDE LEVEL 25 MMOL/L (20-31); CHLORIDE LEVEL 109 MMOL/L (98-107); CREATININE FOR GFR 0.78 MG/DL (0.70-1.30); FERRITIN 3.4 NG/ML (10.5-307.3); FREE T4 1.09 NG/DL (0.89-1.76); GLOMERULAR FILTRATION RATE > 60.0 (>42); GLUCOSE, FASTING 77 MG/DL (74-106); POTASSIUM SERUM 4.1 MMOL/L (3.5-5.1); SODIUM LEVEL 140 MMOL/L (136-145); THYROID STIMULATING HORMONE 3.956 uIU/ML (0.55-4.78); VITAMIN B12 LEVEL 509 PG/ML (211-911)
[2022-11-24 18:22] LABS: FOLATE 19.8 NG/ML (>5.4)
== END ==
LOC: M SFHCADAM 08:58
PROVIDERS: ATTEND Physician Assistant
DX: E03.9 Hypothyroidism, unspecified (principal); D64.9 Anemia, unspecified; I10 Essential (primary) hypertension

== ENCOUNTER → 2023-01-11 | Outpatient (REF) | payer MEDICARE, MEDICAID | LOC: M SFHCADAM 13:23 | PROVIDERS: ATTEND Physician Assistant | DX: D50.9 Iron deficiency anemia, unspecified (principal) ==

== ENCOUNTER → 2023-02-20 | Outpatient (REF) | payer MEDICARE, MEDICAID ==
[2023-02-20 14:11] LABS: APPEARANCE, URINE MANUAL CLOUDY (CLEAR); BILIRUBIN, URINE MANUAL NEGATIVE (NEGATIVE); COLOR, URINE MANUAL YELLOW (YELLOW); GLUCOSE, URINE (UA) MANUAL NEGATIVE (NEGATIVE); KETONE, URINE MANUAL NEGATIVE (NEGATIVE); PROTEIN, URINE MANUAL TRACE mg/dL (NEGATIVE); UROBILINOGEN, URINE MANUAL NORMAL (NORMAL)
[2023-02-20 14:12] LABS: BLOOD URINE MANUAL POSITIVE (NEGATIVE); LEUKOCYTE ESTERASE, URINE MAN POSITIVE (NEGATIVE); NITRITE, URINE MANUAL POSITIVE (NEGATIVE)
[2023-02-20 14:55] LABS: WBC, URINE TNTC /hpf (0-3)
[2023-02-20 14:56] LABS: AMORPHOUS SEDIMENT, URINE MOD AMOUNT (NEGATIVE); BACTERIA, URINE MOD AMOUNT; HYALINE CAST, URINE NONE SEEN /lpf (0-1); SQUAMOUS EPITHELIAL CELL URINE SMALL AMOUNT /hpf (SMALL AMT)
== END ==
LOC: M SFHCADAM 13:14
PROVIDERS: ATTEND Physician Assistant
DX: R82.90 Unspecified abnormal findings in urine (principal)

== ENCOUNTER → 2023-02-22 | Outpatient (REF) | payer MEDICARE, MEDICAID | LOC: M SFHCADAM 17:36 | PROVIDERS: ATTEND Physician Assistant | DX: Z53.9 Procedure and treatment not carried out, unspecified reason (principal); R82.90 Unspecified abnormal findings in urine ==

== ENCOUNTER → 2023-03-01 | Outpatient (REF) | payer MEDICARE, MEDICAID ==
[2023-03-01 14:33] LABS: PERCENT SATURATION 29.6 % (19.7-50.0)
[2023-03-01 14:35] LABS: FERRITIN 24.6 NG/ML (10.5-307.3)
[2023-03-01 14:38] LABS: BASO # 0.1 10^3/uL (0.0-0.2); BASO % 0.7 % (0.0-1.0); EOS # 0.4 10^3/uL (0.0-0.5); EOS % 5.2 % (0.0-3.0); HEMATOCRIT 45.4 % (42.0-52.0); HEMOGLOBIN 14.9 g/dl (13.5-17.5); LYMPH % 27.3 % (24.0-44.0); MEAN CORPUSCULAR HEMOGLOBIN 31.1 pg (27.0-33.0); MEAN CORPUSCULAR HGB CONC 32.8 g/dl (32.0-36.5); MEAN CORPUSCULAR VOLUME 94.8 fl (80.0-96.0); MONO # 0.6 10^3/uL (0.0-0.8); MONO % 7.7 % (2.0-8.0); NEUTROPHILS # 4.2 10^3/uL (1.5-8.5); NEUTROPHILS % 58.7 % (36.0-66.0); PLATELET COUNT, AUTOMATED 223 10^3/uL (150-450); RED BLOOD COUNT 4.79 10^6/uL (4.30-6.10); WHITE BLOOD COUNT 7.2 10^3/uL (4.0-10.0)
== END ==
LOC: M SFHCADAM 08:06
PROVIDERS: ATTEND Physician Assistant
DX: K59.00 Constipation, unspecified (principal); D50.9 Iron deficiency anemia, unspecified

== ENCOUNTER → 2023-04-27 | Outpatient (REF) | payer MEDICARE, MEDICAID ==
[2023-04-27 16:34] LABS: APPEARANCE, URINE CLOUDY (CLEAR); BACTERIA, URINE AUTO 1+ (NEGATIVE); BILIRUBIN, URINE AUTO NEGATIVE (NEGATIVE); BLOOD, URINE BLOOD NEGATIVE (NEGATIVE); COLOR, URINE YELLOW (YELLOW); GLUCOSE, URINE (UA) AUTO NEGATIVE (NEGATIVE); KETONE, URINE AUTO NEGATIVE (NEGATIVE); LEUKOCYTE ESTERASE, URINE AUTO 3+ (NEGATIVE); MUCUS, URINE SMALL (NEGATIVE); NITRITE, URINE AUTO NEGATIVE (NEGATIVE); PROTEIN, URINE AUTO NEGATIVE (NEGATIVE); RBC, URINE AUTO 3 /HPF (0-3); SPECIFIC GRAVITY URINE AUTO 1.009 (1.002-1.035); SQUAMOUS EPITHELIAL CELL UR AU 0 /HPF (0-6); UROBILINOGEN, URINE AUTO 0.2 mg/dL (0.0-2.0); WBC, URINE AUTO 115 /HPF (0-3)
== END ==
LOC: M SFHCADAM 15:56
PROVIDERS: ATTEND Physician Assistant
DX: R39.9 Unspecified symptoms and signs involving the genitourinary system (principal)

== ENCOUNTER → 2023-05-09 | Outpatient (REF) | payer MEDICARE, MEDICAID ==
[2023-05-09 15:27] LABS: BASO % 0.5 % (0.0-1.0); EOS # 0.3 10^3/uL (0.0-0.5); HEMATOCRIT 46.5 % (42.0-52.0); HEMOGLOBIN 15.3 g/dl (13.5-17.5); LYMPH # 1.9 10^3/uL (1.5-5.0); LYMPH % 29.7 % (24.0-44.0); MEAN CORPUSCULAR HEMOGLOBIN 31.7 pg (27.0-33.0); MEAN CORPUSCULAR HGB CONC 32.9 g/dl (32.0-36.5); MEAN CORPUSCULAR VOLUME 96.3 fl (80.0-96.0); MONO # 0.5 10^3/uL (0.0-0.8); MONO % 8.7 % (2.0-8.0); NEUTROPHILS # 3.5 10^3/uL (1.5-8.5); NEUTROPHILS % 56.8 % (36.0-66.0); PLATELET COUNT, AUTOMATED 220 10^3/uL (150-450); RED BLOOD COUNT 4.83 10^6/uL (4.30-6.10); WHITE BLOOD COUNT 6.2 10^3/uL (4.0-10.0)
[2023-05-09 15:55] LABS: BLOOD UREA NITROGEN 11 MG/DL (9-23); CALCIUM LEVEL 9.5 MG/DL (8.3-10.6); CARBON DIOXIDE LEVEL 27 MMOL/L (20-31); CHLORIDE LEVEL 107 MMOL/L (98-107); CREATININE FOR GFR 0.79 MG/DL (0.70-1.30); GLOMERULAR FILTRATION RATE > 60.0 (>42); GLUCOSE, FASTING 88 MG/DL (74-106); POTASSIUM SERUM 4.3 MMOL/L (3.5-5.1); SODIUM LEVEL 139 MMOL/L (136-145)
== END ==
LOC: M SFHCADAM 08:28
PROVIDERS: ATTEND Physician Assistant
DX: I10 Essential (primary) hypertension (principal); R32 Unspecified urinary incontinence; N39.0 Urinary tract infection, site not specified

== ENCOUNTER → 2023-06-22 | Outpatient (CLI) | payer MEDICARE, MEDICAID | LOC: M RAD 08:48 | PROVIDERS: ATTEND Physician Assistant | DX: Z12.2 Encounter for screening for malignant neoplasm of respiratory organs (principal); F17.210 Nicotine dependence, cigarettes, uncomplicated ==

== ENCOUNTER → 2023-07-03 | Outpatient (CLI) | payer MEDICARE, MEDICAID | LOC: M LAB 10:10 | PROVIDERS: ATTEND Physician Assistant | DX: F03.918 Unspecified dementia, unspecified severity, with other behavioral disturbance (principal); R41.82 Altered mental status, unspecified ==

== ENCOUNTER → 2023-07-12 | Outpatient (REF) | payer MEDICARE, MEDICAID ==
[2023-07-12 16:15] LABS: BASO % 0.5 % (0.0-1.0); EOS # 0.2 10^3/uL (0.0-0.5); EOS % 3.3 % (0.0-3.0); HEMATOCRIT 37.2 % (42.0-52.0); HEMOGLOBIN 12.4 g/dl (13.5-17.5); LYMPH % 32.7 % (24.0-44.0); MEAN CORPUSCULAR HEMOGLOBIN 33.7 pg (27.0-33.0); MEAN CORPUSCULAR HGB CONC 33.3 g/dl (32.0-36.5); MEAN CORPUSCULAR VOLUME 101.1 fl (80.0-96.0); MONO # 0.5 10^3/uL (0.0-0.8); MONO % 7.7 % (2.0-8.0); NEUTROPHILS # 3.3 10^3/uL (1.5-8.5); NEUTROPHILS % 55.1 % (36.0-66.0); PLATELET COUNT, AUTOMATED 246 10^3/uL (150-450); RED BLOOD COUNT 3.68 10^6/uL (4.30-6.10)
[2023-07-12 16:43] LABS: ALBUMIN 3.4 G/DL (3.2-5.2); ALKALINE PHOSPHATASE 170 U/L (46-116); ALT/SGPT 20 U/L (7.0-40); AST/SGOT 16 U/L (<34); BILIRUBIN,TOTAL 0.2 MG/DL (0.3-1.2); BLOOD UREA NITROGEN 12 MG/DL (9-23); CARBON DIOXIDE LEVEL 24 MMOL/L (20-31); CHLORIDE LEVEL 104 MMOL/L (98-107); CREATININE FOR GFR 0.82 MG/DL (0.70-1.30); GLOMERULAR FILTRATION RATE > 60.0 (>42); GLUCOSE, FASTING 86 MG/DL (74-106); POTASSIUM SERUM 4.3 MMOL/L (3.5-5.1); SODIUM LEVEL 136 MMOL/L (136-145); TOTAL PROTEIN 6.3 G/DL (5.7-8.2)
== END ==
LOC: M SFHCADAM 12:51
PROVIDERS: ATTEND Physician Assistant
DX: I95.9 Hypotension, unspecified (principal); Z91.89 Other specified personal risk factors, not elsewhere classified; R05.1 Acute cough; N30.00 Acute cystitis without hematuria; I50.9 Heart failure, unspecified

== ENCOUNTER → 2023-07-13 | Outpatient (CLI) | payer MEDICARE, MEDICAID | LOC: M ADAMS 10:03 | PROVIDERS: ATTEND Physician Assistant | DX: I95.9 Hypotension, unspecified (principal); Z91.89 Other specified personal risk factors, not elsewhere classified; R05.1 Acute cough; N30.00 Acute cystitis without hematuria ==

== ENCOUNTER → 2023-07-24 | Outpatient (CLI) | payer MEDICARE, MEDICAID | LOC: M SLEEP 20:00 | PROVIDERS: ATTEND Physician Assistant | DX: G47.33 Obstructive sleep apnea (adult) (pediatric) (principal) ==

== ENCOUNTER → 2023-08-02 | Outpatient (REF) | payer MEDICARE, MEDICAID ==
[2023-08-02 13:15] LABS: HEMOGLOBIN 14.6 g/dl (13.5-17.5); MEAN CORPUSCULAR HEMOGLOBIN 33.7 pg (27.0-33.0); MEAN CORPUSCULAR HGB CONC 33.2 g/dl (32.0-36.5); MEAN CORPUSCULAR VOLUME 101.6 fl (80.0-96.0); PLATELET COUNT, AUTOMATED 214 10^3/uL (150-450); RED BLOOD COUNT 4.33 10^6/uL (4.30-6.10); WHITE BLOOD COUNT 5.2 10^3/uL (4.0-10.0)
[2023-08-02 13:49] LABS: ALBUMIN 3.7 G/DL (3.2-5.2); ALKALINE PHOSPHATASE 158 U/L (46-116); ALT/SGPT 15 U/L (7.0-40); AST/SGOT 10 U/L (<34); BILIRUBIN,TOTAL 0.2 MG/DL (0.3-1.2); BLOOD UREA NITROGEN 12 MG/DL (9-23); CALCIUM LEVEL 9.4 MG/DL (8.3-10.6); CARBON DIOXIDE LEVEL 27 MMOL/L (20-31); CHLORIDE LEVEL 107 MMOL/L (98-107); GLOMERULAR FILTRATION RATE > 60.0 (>42); GLUCOSE, FASTING 52 MG/DL (74-106); POTASSIUM SERUM 4.1 MMOL/L (3.5-5.1); SODIUM LEVEL 142 MMOL/L (136-145); TOTAL PROTEIN 6.5 G/DL (5.7-8.2)
== END ==
LOC: M SFHCADAM 11:11
PROVIDERS: ATTEND Family Medicine
DX: I50.9 Heart failure, unspecified (principal)

== ENCOUNTER → 2023-08-02 | Outpatient (CLI) | payer MEDICARE, MEDICAID | LOC: M ADAMS 11:17 | PROVIDERS: ATTEND Family Medicine | DX: I50.9 Heart failure, unspecified (principal) ==

== ENCOUNTER → 2023-09-13 | Outpatient (CLI) | payer MEDICARE, MEDICAID ==
[~2023-09-13] MED LIST changes: +E-Z-GAS II EFFERVESCENT PACKET (SODIUM BICARB./CITRIC ACID/SIMETHICONE) As Ordered ONE; +E-Z-HD 98% w/w 340GM SUSP BTL As Ordered ONE; +E-Z-PAQUE 96% w/w SUSP 176GM BTL As Ordered ONE
== END ==
LOC: M RAD 08:58
PROVIDERS: ATTEND Physician Assistant
DX: Z91.89 Other specified personal risk factors, not elsewhere classified (principal); Z53.9 Procedure and treatment not carried out, unspecified reason

== ENCOUNTER → 2023-10-03 | Outpatient (CLI) | payer MEDICARE, MEDICAID ==
[~2023-10-03] MED LIST changes: -E-Z-GAS II EFFERVESCENT PACKET (SODIUM BICARB./CITRIC ACID/SIMETHICONE) As Ordered ONE; -E-Z-HD 98% w/w 340GM SUSP BTL As Ordered ONE; -E-Z-PAQUE 96% w/w SUSP 176GM BTL As Ordered ONE
[2023-10-03 14:48] LABS: BASO % 0.6 % (0.0-1.0); EOS # 0.3 10^3/uL (0.0-0.5); EOS % 5.2 % (0.0-3.0); HEMATOCRIT 42.2 % (42.0-52.0); HEMOGLOBIN 13.8 g/dl (13.5-17.5); LYMPH # 2.1 10^3/uL (1.5-5.0); LYMPH % 43.8 % (24.0-44.0); MEAN CORPUSCULAR HEMOGLOBIN 33.8 pg (27.0-33.0); MEAN CORPUSCULAR HGB CONC 32.7 g/dl (32.0-36.5); MEAN CORPUSCULAR VOLUME 103.4 fl (80.0-96.0); MONO # 0.4 10^3/uL (0.0-0.8); MONO % 8.6 % (2.0-8.0); NEUTROPHILS % 41.6 % (36.0-66.0); PLATELET COUNT, AUTOMATED 181 10^3/uL (150-450); RED BLOOD COUNT 4.08 10^6/uL (4.30-6.10); WHITE BLOOD COUNT 4.8 10^3/uL (4.0-10.0)
[2023-10-03 15:04] LABS: ALBUMIN 3.5 G/DL (3.2-5.2); ALKALINE PHOSPHATASE 144 U/L (46-116); ALT/SGPT 12 U/L (7.0-40); AST/SGOT 9 U/L (<34); BILIRUBIN,TOTAL 0.2 MG/DL (0.3-1.2); BLOOD UREA NITROGEN 17 MG/DL (9-23); CALCIUM LEVEL 9.7 MG/DL (8.3-10.6); CARBON DIOXIDE LEVEL 25 MMOL/L (20-31); CHLORIDE LEVEL 110 MMOL/L (98-107); CREATININE FOR GFR 0.65 MG/DL (0.70-1.30); GLOMERULAR FILTRATION RATE > 60.0 (>42); GLUCOSE, FASTING 65 MG/DL (74-106); POTASSIUM SERUM 4.6 MMOL/L (3.5-5.1); SODIUM LEVEL 140 MMOL/L (136-145); TOTAL PROTEIN 6.5 G/DL (5.7-8.2)
== END ==
LOC: M ADAMS 08:43
PROVIDERS: ATTEND Psychiatry & Neurology Neurology
DX: R56.9 Unspecified convulsions (principal)

== ENCOUNTER → 2023-12-18 | Outpatient (REF) | payer MEDICARE, MEDICAID ==
[~2023-12-18] MED LIST changes: -MIRA1POW3 PO; +MIRA33506 PO
[2023-12-18 13:07] LABS: BLOOD UREA NITROGEN 18 MG/DL (9-23); CALCIUM LEVEL 9.8 MG/DL (8.3-10.6); CARBON DIOXIDE LEVEL 27 MMOL/L (20-31); CHLORIDE LEVEL 106 MMOL/L (98-107); CREATININE FOR GFR 0.87 MG/DL (0.70-1.30); GLOMERULAR FILTRATION RATE > 60.0 (>42); GLUCOSE, FASTING 61 MG/DL (74-106); POTASSIUM SERUM 4.5 MMOL/L (3.5-5.1); SODIUM LEVEL 140 MMOL/L (136-145)
== END ==
LOC: M SFHCADAM 11:28
PROVIDERS: ATTEND Physician Assistant
DX: I10 Essential (primary) hypertension (principal)

== ENCOUNTER → 2023-12-20 | Outpatient (CLI) | payer MEDICARE, MEDICAID | LOC: M WHC 10:18 | PROVIDERS: ATTEND Physician Assistant | DX: Z13.820 Encounter for screening for osteoporosis (principal) ==

== ENCOUNTER → 2024-01-15 | Outpatient (REF) | payer MEDICARE, MEDICAID ==
[2024-01-15 14:15] LABS: BLOOD UREA NITROGEN 17 MG/DL (9-23); CALCIUM LEVEL 9.1 MG/DL (8.3-10.6); CARBON DIOXIDE LEVEL 25 MMOL/L (20-31); CHLORIDE LEVEL 109 MMOL/L (98-107); CREATININE FOR GFR 0.77 MG/DL (0.70-1.30); GLOMERULAR FILTRATION RATE > 60.0 (>42); GLUCOSE, FASTING 82 MG/DL (74-106); POTASSIUM SERUM 4.3 MMOL/L (3.5-5.1); SODIUM LEVEL 140 MMOL/L (136-145)
[2024-01-15 14:19] LABS: TOTAL 25(OH) VITAMIN D 49.1 NG/ML (20.0-100.0)
[2024-01-15 14:20] LABS: THYROID STIMULATING HORMONE 6.643 uIU/ML (0.55-4.78)
[2024-01-15 14:21] LABS: FREE T4 1.14 NG/DL (0.89-1.76)
== END ==
LOC: M SFHCADAM 09:13
PROVIDERS: ATTEND Physician Assistant
DX: E87.5 Hyperkalemia (principal); E03.9 Hypothyroidism, unspecified; E55.9 Vitamin D deficiency, unspecified

== ENCOUNTER → 2024-01-16 | Outpatient (REF) | payer MEDICARE, MEDICAID | LOC: M SFHCADAM 13:29 | PROVIDERS: ATTEND Physician Assistant | DX: E03.9 Hypothyroidism, unspecified (principal) ==

== ENCOUNTER 2024-02-09 22:45 | Emergency (ER) | payer MEDICARE, MEDICAID ==
[~2024-02-09] VITALS: Ht 142.2 cm; Wt 71.0 kg
[2024-02-10 00:23] LABS: BASO % 0.2 % (0.0-1.0); EOS # 0.1 10^3/uL (0.0-0.5); EOS % 2.5 % (0.0-3.0); HEMATOCRIT 37.6 % (42.0-52.0); HEMOGLOBIN 13.1 g/dl (13.5-17.5); LYMPH # 1.2 10^3/uL (1.5-5.0); LYMPH % 21.9 % (24.0-44.0); MEAN CORPUSCULAR HEMOGLOBIN 33.9 pg (27.0-33.0); MEAN CORPUSCULAR HGB CONC 34.8 g/dl (32.0-36.5); MEAN CORPUSCULAR VOLUME 97.4 fl (80.0-96.0); MONO # 0.3 10^3/uL (0.0-0.8); NEUTROPHILS # 3.7 10^3/uL (1.5-8.5); NEUTROPHILS % 69.8 % (36.0-66.0); PLATELET COUNT, AUTOMATED 145 10^3/uL (150-450); RED BLOOD COUNT 3.86 10^6/uL (4.30-6.10); WHITE BLOOD COUNT 5.3 10^3/uL (4.0-10.0)
[2024-02-10 00:35] LABS: ALBUMIN 3.4 G/DL (3.2-5.2); ALKALINE PHOSPHATASE 170 U/L (46-116); ALT/SGPT 29 U/L (7.0-40); AST/SGOT 38 U/L (<34); BILIRUBIN,DIRECT < 0.1 MG/DL (<0.4); BILIRUBIN,TOTAL 0.2 MG/DL (0.3-1.2); BLOOD UREA NITROGEN 12 MG/DL (9-23); CALCIUM LEVEL 9.3 MG/DL (8.3-10.6); CARBON DIOXIDE LEVEL 24 MMOL/L (20-31); CHLORIDE LEVEL 100 MMOL/L (98-107); CPK CREATINE PHOSPHOKINASE 127 U/L (46-171); CREATININE FOR GFR 0.63 MG/DL (0.70-1.30); GLOMERULAR FILTRATION RATE > 60.0 (>42); GLUCOSE, FASTING 68 MG/DL (74-106); MB/CK RELATIVE INDEX 7.87 (< OR =4); POTASSIUM SERUM 5.2 MMOL/L (3.5-5.1); SODIUM LEVEL 130 MMOL/L (136-145); TOTAL PROTEIN 6.1 G/DL (5.7-8.2)
[2024-02-10] MEDS: NS 1,000 ML IV ONE (02:48)
[2024-02-10] MEDS ORDERED: LEVO1TAB40 PO (03:07)
[2024-02-10] MEDS: LevoFLOXacin 750 MG TABLET PO ONE (03:40)
[2024-02-10 03:45] VITALS: BP 149/70; TEMP 94.8; O2SAT 98
== END 2024-02-10 04:12 | disposition home or self-care (01) ==
LOC: M ED 22:45 → EDBD 22:45 → M ED 02-10 04:12
DX: J18.9 Pneumonia, unspecified organism (principal); K59.00 Constipation, unspecified; I10 Essential (primary) hypertension; K21.9 Gastro-esophageal reflux disease without esophagitis; F17.200 Nicotine dependence, unspecified, uncomplicated; Z79.899 Other long term (current) drug therapy; Z88.8 Allergy status to other drugs, medicaments and biological substances

== ENCOUNTER 2024-02-13 09:20 | Observation (INO) | payer MEDICARE, MEDICAID ==
[~2024-02-13] VITALS: Ht 142.2 cm; Wt 82.7 kg
[~2024-02-13 09:20] MED LIST changes: +LEVO1TAB40 PO
[2024-02-13 10:44] LABS: ABG BASE EXCESS -4.6 (-2.0-2.0); ABG HCO3 19.6 MMOL/L (22.0-26.0); ABG O2 SATURATION 97.6 % (95.0-99.0); ABG PARTIAL PRESSURE CO2 33.5 mmHg (35.0-45.0); ABG PARTIAL PRESSURE O2 102.2 mmHg (75.0-100.0); ABG STANDARD HCO3 20.7 MMOL/L. (22.0-26.0); ABG TOTAL CO2 20.6 MMOL/L (23.0-31.0); ABG pH (ARTERIAL) 7.385 UNITS (7.350-7.450)
[2024-02-13 11:14] LABS: BASO % 0.2 % (0.0-1.0); BLOOD UREA NITROGEN 13 MG/DL (9-23); CALCIUM LEVEL 9.6 MG/DL (8.3-10.6); CARBON DIOXIDE LEVEL 26 MMOL/L (20-31); CHLORIDE LEVEL 104 MMOL/L (98-107); CREATININE FOR GFR 0.74 MG/DL (0.70-1.30); EOS % 0.5 % (0.0-3.0); GLOMERULAR FILTRATION RATE > 60.0 (>42); GLUCOSE, FASTING 93 MG/DL (74-106); HEMATOCRIT 36.2 % (42.0-52.0); HEMOGLOBIN 12.3 g/dl (13.5-17.5); LYMPH % 15.4 % (24.0-44.0); MEAN CORPUSCULAR HEMOGLOBIN 33.7 pg (27.0-33.0); MEAN CORPUSCULAR VOLUME 99.2 fl (80.0-96.0); MONO # 0.4 10^3/uL (0.0-0.8); MONO % 6.9 % (2.0-8.0); NEUTROPHILS # 4.8 10^3/uL (1.5-8.5); PLATELET COUNT, AUTOMATED 157 10^3/uL (150-450); POTASSIUM SERUM 4.3 MMOL/L (3.5-5.1); RED BLOOD COUNT 3.65 10^6/uL (4.30-6.10); SODIUM LEVEL 135 MMOL/L (136-145); WHITE BLOOD COUNT 6.2 10^3/uL (4.0-10.0)
[2024-02-13] MEDS ORDERED: ISOVUE-370 76% 100ML VIAL As Ordered ONE (13:29)
[2024-02-13] MEDS: cefTRIAXone SOD 2 GM in D5W MINI-BAG PLUS 50 ML IV ONE (14:36)
[2024-02-13] MEDS: AZITHROMYCIN INJ 500 MG, VIAL MATE ADAPTER 1 EACH in NS 250 ML IV ONE (15:23)
[2024-02-13 15:33] VITALS: O2SAT 94
[2024-02-13] MEDS ORDERED: ACETAMINOPHEN TAB 650MG DOSE (2X325MG) PO PRN (15:45)
[2024-02-13] MEDS ORDERED: MOM 30ML SUSPENSION UDC PO PRN (15:45)
[2024-02-13] MEDS ORDERED: MAALOX 30 ML SUSP *UDC PO PRN (15:45)
[2024-02-13 16:13] LABS: PROCALCITONIN 0.06 ng/ml
[2024-02-13 19:15] VITALS: BP 93/69; TEMP 97
[2024-02-13] MEDS: NICOTINE 21MG/24HR 1 EA TRANSDERMAL TD SCH (22:32)
[2024-02-14 04:00] VITALS: BP 117/65; TEMP 97.9
[2024-02-14] MEDS: LevoFLOXacin 750 MG TABLET PO SCH (05:34)
[2024-02-14] MEDS ORDERED: MULT-6 PO (07:49)
[2024-02-14] MEDS ORDERED: LAMO100T3 PO (07:49)
[2024-02-14] MEDS ORDERED: LEVO88TA24 PO (07:49)
[2024-02-14] MEDS ORDERED: IBUP200C28 PO (07:49)
[2024-02-14] MEDS ORDERED: ALPH0.156 OU (07:49)
[2024-02-14] MEDS ORDERED: FERR1TAB8 PO (07:49)
[2024-02-14] MEDS ORDERED: IPRA0.00 INH ×2 (07:49)
[2024-02-14] MEDS ORDERED: FINA5TAB2 PO (07:49)
[2024-02-14] MEDS ORDERED: LEVO1TAB40 PO ×2 (07:49→11:43)
[2024-02-14] MEDS ORDERED: D3 H2000 PO (07:49)
[2024-02-14] MEDS ORDERED: APAP325T4 PO (07:49)
[2024-02-14] MEDS ORDERED: FLOM0.4C39 PO (07:49)
[2024-02-14] MEDS ORDERED: DOXE3TAB PO (07:49)
[2024-02-14] MEDS ORDERED: VITA-158 PO (07:49)
[2024-02-14] MEDS ORDERED: VENTAER INH (07:49)
[2024-02-14] MEDS ORDERED: QUET50TA4 PO (07:49)
[2024-02-14] MEDS ORDERED: HOME MED LIST COMPLETE! XX SCH (07:50)
[2024-02-14] MEDS ORDERED: ENOXAPARIN 40MG/0.4ML SYRINGE (J1650 PER 10MG) SC SCH (09:00)
[2024-02-14] MEDS ORDERED: HEPARIN SOD (PORCINE) 5000UNITS/ML 1ML VIAL/SYRINGE SQ SCH (14:00)
== END 2024-02-14 12:50 | disposition home or self-care (01) ==
LOC: M ED 09:20 → EDBD 09:20 → M ED INP 15:43 → M MS5PR 16:15
PROVIDERS: ADMIT Student in an Organized Health Care Education/Training Program; ATTEND Student in an Organized Health Care Education/Training Program
DX: J18.9 Pneumonia, unspecified organism (principal); G40.909 Epilepsy, unspecified, not intractable, without status epilepticus; Z86.73 Personal history of transient ischemic attack (TIA), and cerebral infarction without residual deficits; F79 Unspecified intellectual disabilities; I10 Essential (primary) hypertension; E03.9 Hypothyroidism, unspecified; Z79.899 Other long term (current) drug therapy; Z88.8 Allergy status to other drugs, medicaments and biological substances
CPT/HCPCS: 36415; 36600; 70450; 71045; 71260; 74177; 80048; 80175; 82803; 83605; 84145; 85025; 87040; 87077; 87186; 87486; 87581; 87633; 87798; 93005; 93041; 94760; 96365; 96367; 97161; 97530; 99285; G0378; J0456; J0696; Q9967

== ENCOUNTER → 2024-04-19 | Outpatient (CLI) | payer MEDICARE, MEDICAID ==
[~2024-04-19] MED LIST changes: +ALPH0.156 OU; +APAP325T4 PO; +D3 H2000 PO; +DOXE3TAB PO; +FERR1TAB8 PO; +FINA5TAB2 PO; +FLOM0.4C39 PO; +IBUP200C28 PO; +IPRA0.00 INH; +LEVO88TA24 PO; +MULT-6 PO; +QUET50TA4 PO; +VENTAER INH; +VITA-158 PO
== END ==
LOC: M WHC 11:03
PROVIDERS: ATTEND Physician Assistant
DX: Z13.820 Encounter for screening for osteoporosis (principal); M85.89 Other specified disorders of bone density and structure, multiple sites

== ENCOUNTER → 2024-05-09 | Outpatient (CLI) | payer MEDICARE, MEDICAID | LOC: M ADAMS 11:07 | PROVIDERS: ATTEND Physician Assistant | DX: R91.8 Other nonspecific abnormal finding of lung field (principal); J20.9 Acute bronchitis, unspecified; R60.0 Localized edema; Z87.440 Personal history of urinary (tract) infections ==

== ENCOUNTER → 2024-05-09 | Outpatient (REF) | payer MEDICARE, MEDICAID ==
[2024-05-09 12:53] LABS: APPEARANCE, URINE CLEAR (CLEAR); BACTERIA, URINE AUTO NEGATIVE (NEGATIVE); BILIRUBIN, URINE AUTO NEGATIVE (NEGATIVE); BLOOD, URINE BLOOD NEGATIVE (NEGATIVE); COLOR, URINE STRAW (YELLOW); GLUCOSE, URINE (UA) AUTO NEGATIVE (NEGATIVE); KETONE, URINE AUTO NEGATIVE (NEGATIVE); LEUKOCYTE ESTERASE, URINE AUTO NEGATIVE (NEGATIVE); NITRITE, URINE AUTO NEGATIVE (NEGATIVE); PROTEIN, URINE AUTO NEGATIVE (NEGATIVE); RBC, URINE AUTO 0 /HPF (0-3); SPECIFIC GRAVITY URINE AUTO 1.004 (1.002-1.035); SQUAMOUS EPITHELIAL CELL UR AU 0 /HPF (0-6); UROBILINOGEN, URINE AUTO 0.2 mg/dL (0.0-2.0); WBC, URINE AUTO 1 /HPF (0-3)
[2024-05-09 13:49] LABS: BLOOD UREA NITROGEN 10 MG/DL (9-23); CALCIUM LEVEL 9.7 MG/DL (8.3-10.6); CARBON DIOXIDE LEVEL 26 MMOL/L (20-31); CHLORIDE LEVEL 108 MMOL/L (98-107); CREATININE FOR GFR 0.59 MG/DL (0.70-1.30); GLOMERULAR FILTRATION RATE > 60.0 (>42); GLUCOSE, FASTING 62 MG/DL (74-106); POTASSIUM SERUM 4.5 MMOL/L (3.5-5.1); SODIUM LEVEL 139 MMOL/L (136-145)
== END ==
LOC: M SFHCADAM 10:18
PROVIDERS: ATTEND Physician Assistant
DX: J20.9 Acute bronchitis, unspecified (principal); Z87.440 Personal history of urinary (tract) infections; R60.0 Localized edema; J06.9 Acute upper respiratory infection, unspecified; I50.9 Heart failure, unspecified

== ENCOUNTER → 2024-07-17 | Outpatient (REF) | payer MEDICARE, MEDICAID ==
[~2024-07-17] MED LIST changes: +CEFD1CAP9 PO; +CEFD300C PO; +DOXY-441 PO; +DOXY100C82 PO; +IBUP-1022 PO; +PRED20TA PO
== END ==
LOC: M SFHCADAM 12:25
PROVIDERS: ATTEND Physician Assistant
DX: J06.9 Acute upper respiratory infection, unspecified (principal)

== ENCOUNTER 2024-07-18 12:56 | Emergency (ER) | payer MEDICARE, MEDICAID ==
[~2024-07-18 12:56] MED LIST changes: -AMOX875T2 PO; -CEFD1CAP9 PO; -CEFD300C PO; -DOXY-441 PO; -DOXY100C82 PO; -DULC10SU2 PR; -IBUP-1022 PO; -LIDO5TD TD; -NYST1POW3 TOP; -PRED20TA PO
[2024-07-18 13:01] VITALS: BP 169/102; TEMP 97.8; O2SAT 91
[2024-07-18] MEDS ORDERED: CEFD300C PO (14:06)
[2024-07-18] MEDS ORDERED: DOXY100C82 PO (14:06)
[2024-07-18] MEDS ORDERED: IBUP-1022 PO (14:09)
[2024-07-18] MEDS: DOXYCYCLINE HYCLATE 100MG TABLET PO ONE (14:22)
[2024-07-18] MEDS: CEFDINIR 300 MG CAP (OMNICEF) PO ONE (14:22)
[2024-07-19] MEDS ORDERED: DOXY-441 PO (12:51)
[2024-07-19] MEDS ORDERED: CEFD1CAP9 PO (12:51)
[2024-07-19] MEDS ORDERED: PRED20TA PO (12:51)
== END 2024-07-18 14:29 | disposition home or self-care (01) ==
LOC: M ED 12:56
DX: J18.1 Lobar pneumonia, unspecified organism (principal); R07.81 Pleurodynia; F79 Unspecified intellectual disabilities; F17.200 Nicotine dependence, unspecified, uncomplicated; G47.30 Sleep apnea, unspecified; E03.9 Hypothyroidism, unspecified; F41.9 Anxiety disorder, unspecified; R56.9 Unspecified convulsions; J06.9 Acute upper respiratory infection, unspecified; J18.9 Pneumonia, unspecified organism; Z79.52 Long term (current) use of systemic steroids; Z79.1 Long term (current) use of non-steroidal anti-inflammatories (NSAID); Z79.2 Long term (current) use of antibiotics; Z79.899 Other long term (current) drug therapy; Z88.8 Allergy status to other drugs, medicaments and biological substances

== ENCOUNTER → 2024-07-18 | Outpatient (REF) | payer MEDICARE, MEDICAID ==
[~2024-07-18] MED LIST changes: +AMOX875T2 PO; +DULC10SU2 PR; +LIDO5TD TD; +NYST1POW3 TOP
[2024-07-18 13:42] LABS: BASO % 0.2 % (0.0-1.0); EOS # 0.1 10^3/uL (0.0-0.5); EOS % 1.1 % (0.0-3.0); HEMATOCRIT 40.1 % (42.0-52.0); HEMOGLOBIN 13.2 g/dl (13.5-17.5); LYMPH # 1.1 10^3/uL (1.5-5.0); LYMPH % 16.6 % (24.0-44.0); MEAN CORPUSCULAR HEMOGLOBIN 33.2 pg (27.0-33.0); MEAN CORPUSCULAR HGB CONC 32.9 g/dl (32.0-36.5); MEAN CORPUSCULAR VOLUME 100.8 fl (80.0-96.0); MONO # 0.3 10^3/uL (0.0-0.8); MONO % 5.2 % (2.0-8.0); NEUTROPHILS % 76.4 % (36.0-66.0); PLATELET COUNT, AUTOMATED 153 10^3/uL (150-450); RED BLOOD COUNT 3.98 10^6/uL (4.30-6.10); WHITE BLOOD COUNT 6.6 10^3/uL (4.0-10.0)
[2024-07-18 13:54] LABS: ALBUMIN 3.3 G/DL (3.2-5.2); ALKALINE PHOSPHATASE 206 U/L (40-129); ALT/SGPT 23 U/L (7.0-40); AST/SGOT 13 U/L (<34); BILIRUBIN,TOTAL 0.2 MG/DL (0.3-1.2); BLOOD UREA NITROGEN 19 MG/DL (9-23); CALCIUM LEVEL 9.8 MG/DL (8.3-10.6); CARBON DIOXIDE LEVEL 28 MMOL/L (20-31); CHLORIDE LEVEL 108 MMOL/L (98-107); CREATININE FOR GFR 0.68 MG/DL (0.70-1.30); GLOMERULAR FILTRATION RATE > 60.0 (>42); GLUCOSE, FASTING 93 MG/DL (74-106); POTASSIUM SERUM 4.5 MMOL/L (3.5-5.1); SODIUM LEVEL 139 MMOL/L (136-145); TOTAL PROTEIN 6.7 G/DL (5.7-8.2)
[2024-07-21 14:37] LABS: TOPIRAMATE LEVEL 20.2 mcg/mL (see note)
[2024-07-22 10:26] LABS: LAMOTRIGINE (LAMICTAL) 9.1 mcg/mL (2.5-15.0)
== END ==
LOC: M LABDRWAD 12:52
PROVIDERS: ATTEND Psychiatry & Neurology Neurology
DX: R56.9 Unspecified convulsions (principal)

== ENCOUNTER → 2024-07-18 | Outpatient (CLI) | payer MEDICARE, MEDICAID | LOC: M ADAMS 09:28 | PROVIDERS: ATTEND Physician Assistant | DX: J06.9 Acute upper respiratory infection, unspecified (principal); J18.9 Pneumonia, unspecified organism ==

== ENCOUNTER 2024-07-19 10:35 | Observation (INO) | payer MEDICARE, MEDICAID ==
[~2024-07-19] VITALS: Ht 134.6 cm; Wt 72.3 kg
[~2024-07-19 10:35] MED LIST changes: +CEFD300C PO; +DOXY100C82 PO; +DOXYCYCLINE HYCLATE 100MG TABLET PO SCH; +IBUP-1022 PO
[2024-07-19 11:55] LABS: VENOUS BASE EXCESS -3.8 (-2.0-2.0); VENOUS HCO3 23.5 MMOL/L (23.0-27.0); VENOUS O2 SATURATION 72.4 % (60.0-80.0); VENOUS PARTIAL PRESSURE CO2 51.8 mmHg (38.0-50.0); VENOUS PARTIAL PRESSURE O2 40.2 mmHg (30.0-50.0); VENOUS PH 7.274 UNITS (7.330-7.430); VENOUS STANDARD HCO3 20.7 MMOL/L; VENOUS TOTAL CO2 25.1 MMOL/L (24.0-28.0)
[2024-07-19 12:06] LABS: BASO % 0.2 % (0.0-1.0); EOS % 0.1 % (0.0-3.0); LYMPH # 0.6 10^3/uL (1.5-5.0); LYMPH % 4.4 % (24.0-44.0); MEAN CORPUSCULAR HEMOGLOBIN 33.2 pg (27.0-33.0); MEAN CORPUSCULAR HGB CONC 34.2 g/dl (32.0-36.5); MEAN CORPUSCULAR VOLUME 96.9 fl (80.0-96.0); MONO # 0.5 10^3/uL (0.0-0.8); MONO % 3.5 % (2.0-8.0); NEUTROPHILS # 12.2 10^3/uL (1.5-8.5); NEUTROPHILS % 91.4 % (36.0-66.0); PLATELET COUNT, AUTOMATED 164 10^3/uL (150-450); RED BLOOD COUNT 3.92 10^6/uL (4.30-6.10); WHITE BLOOD COUNT 13.3 10^3/uL (4.0-10.0)
[2024-07-19 12:30] LABS: ALBUMIN 3.3 G/DL (3.2-5.2); ALKALINE PHOSPHATASE 198 U/L (40-129); ALT/SGPT 24 U/L (7.0-40); AST/SGOT 15 U/L (<34); BILIRUBIN,DIRECT < 0.1 MG/DL (<0.4); BILIRUBIN,TOTAL 0.3 MG/DL (0.3-1.2); BLOOD UREA NITROGEN 16 MG/DL (9-23); CALCIUM LEVEL 9.9 MG/DL (8.3-10.6); CARBON DIOXIDE LEVEL 25 MMOL/L (20-31); CHLORIDE LEVEL 107 MMOL/L (98-107); GLOMERULAR FILTRATION RATE > 60.0 (>42); GLUCOSE, FASTING 80 MG/DL (74-106); POTASSIUM SERUM 4.8 MMOL/L (3.5-5.1); SODIUM LEVEL 138 MMOL/L (136-145); TOTAL PROTEIN 6.9 G/DL (5.7-8.2)
[2024-07-19] MEDS ORDERED: DOXY-441 PO (12:51)
[2024-07-19] MEDS ORDERED: CEFD1CAP9 PO (12:51)
[2024-07-19] MEDS ORDERED: PRED20TA PO (12:51)
[2024-07-19] MEDS ORDERED: HOME MED LIST COMPLETE! XX SCH (12:55)
[2024-07-19 12:57] LABS: PROCALCITONIN 0.12 ng/ml
[2024-07-19] MEDS ORDERED: ACETAMINOPHEN 325 MG TAB PO PRN (13:40)
[2024-07-19] MEDS ORDERED: ISOVUE-370 76% 100ML VIAL As Ordered ONE (13:58)
[2024-07-19] MEDS: LR 1,000 ML IV ONE (14:27)
[2024-07-19] MEDS: ENOXAPARIN 40MG/0.4ML SYRINGE (J1650 PER 10MG) SC SCH (14:36)
[2024-07-19] MEDS: IPRATROPIUM 0.5MG/ALBUTEROL 2.5MG INH SOL UD 3ML (DUONEB) NEB SCH (14:44)
[2024-07-19] MEDS: cefTRIAXone SOD 1 GM in DEXTROSE 5% (D5W) ADV/MINI-BAG 50 ML IV SCH (16:01)
[2024-07-19] MEDS ORDERED: KETOROLAC 30 MG/ML 1ML VIAL IV PRN (16:10)
[2024-07-19] MEDS ORDERED: PERCOCET 5MG/325MG TAB PO PRN (16:10)
[2024-07-19 16:41] LABS: TOTAL 25(OH) VITAMIN D 47.5 NG/ML (20.0-100.0)
[2024-07-19 18:15] VITALS: BP 168/78; TEMP 97.3; O2SAT 96
[2024-07-19] MEDS: BRIMONIDINE 0.15% OPHTH SOLN 5 ML OU SCH (18:49)
[2024-07-19 20:00] VITALS: BP 157/81; TEMP 97.9; O2SAT 96
[2024-07-19] MEDS: FERROUS SULFATE 325MG TAB PO SCH (21:00)
[2024-07-19] MEDS: DOXYCYCLINE HYCLATE 100MG TABLET PO SCH (21:00)
[2024-07-19] MEDS: FINASTERIDE 5MG TAB PO SCH (21:00)
[2024-07-19] MEDS: NYSTATIN 100,000 UNITS/GM TOPICAL PWD 15GM TOP SCH (21:00)
[2024-07-19] MEDS ORDERED: DOCUSATE SODIUM 100MG CAPSULE PO SCH (21:00)
[2024-07-19] MEDS: ASCORBIC ACID 500 MG TAB PO SCH (21:00)
[2024-07-19] MEDS: SENOKOT S TAB PO SCH (21:00)
[2024-07-19] MEDS ORDERED: DOXYCYCLINE HYCLATE 100 MG in DEXTROSE 5% (D5W) MINI-BAG PLU 100 ML IV SCH (21:00)
[2024-07-19] MEDS: QUEtiapine FUMARATE 50MG TAB PO SCH (21:00)
[2024-07-19] MEDS ORDERED: DOXEPIN 25 MG CAP PO SCH (21:00)
[2024-07-19] MEDS: TOPIRAMATE (TopAMAX) 100 MG TAB PO SCH (21:00)
[2024-07-19] MEDS: lamoTRIgine 100MG TAB PO SCH (21:01)
[2024-07-19] MEDS: LIDOCAINE 5% (LIDODERM) PATCH TD SCH (21:01)
[2024-07-19] MEDS: LATANOPROST 0.005% OPHTH SOLN 2.5 ML OU SCH (21:40)
[2024-07-19] MEDS: CLORAZEPATE 3.75MG TAB PO SCH (21:40)
[2024-07-20 04:24] VITALS: BP 149/84; TEMP 97.5; O2SAT 93
[2024-07-20] MEDS: LEVOTHYROXINE 88MCG TABLET (0.088 MG) PO SCH (05:46)
[2024-07-20 06:20] LABS: HEMATOCRIT 34.9 % (42.0-52.0); HEMOGLOBIN 11.6 g/dl (13.5-17.5); MEAN CORPUSCULAR HEMOGLOBIN 32.9 pg (27.0-33.0); MEAN CORPUSCULAR HGB CONC 33.2 g/dl (32.0-36.5); MEAN CORPUSCULAR VOLUME 98.9 fl (80.0-96.0); PLATELET COUNT, AUTOMATED 147 10^3/uL (150-450); RED BLOOD COUNT 3.53 10^6/uL (4.30-6.10); WHITE BLOOD COUNT 8.5 10^3/uL (4.0-10.0)
[2024-07-20 06:56] LABS: BLOOD UREA NITROGEN 18 MG/DL (9-23); CALCIUM LEVEL 9.5 MG/DL (8.3-10.6); CARBON DIOXIDE LEVEL 22 MMOL/L (20-31); CHLORIDE LEVEL 113 MMOL/L (98-107); CREATININE FOR GFR 0.74 MG/DL (0.70-1.30); GLOMERULAR FILTRATION RATE > 60.0 (>42); GLUCOSE, FASTING 104 MG/DL (74-106); POTASSIUM SERUM 4.1 MMOL/L (3.5-5.1); SODIUM LEVEL 142 MMOL/L (136-145)
[2024-07-20] MEDS: TAMSULOSIN 0.4 MG CAP PO SCH (08:35)
[2024-07-20] MEDS: PARoxetine 10MG TABLET PO SCH (08:36)
[2024-07-20] MEDS: MIRALAX *UNIT DOSE* 17GM PACKET PO SCH (08:45)
[2024-07-20] MEDS ORDERED: LIDO5TD TD (09:39)
[2024-07-20] MEDS ORDERED: DULC10SU2 PR (09:39)
[2024-07-20] MEDS ORDERED: AMOX875T2 PO (09:39)
[2024-07-20] MEDS ORDERED: NYST1POW3 TOP (09:39)
[2024-07-20 12:00] VITALS: BP 130/63; TEMP 97; O2SAT 95
== END 2024-07-20 14:20 | disposition home or self-care (01) ==
LOC: M ED 10:35 → M ED INP 10:36 → M MSPAV 17:33
PROVIDERS: ADMIT Internal Medicine; ATTEND Internal Medicine
DX: J18.9 Pneumonia, unspecified organism (principal); R09.02 Hypoxemia; G40.909 Epilepsy, unspecified, not intractable, without status epilepticus; Z86.73 Personal history of transient ischemic attack (TIA), and cerebral infarction without residual deficits; J44.9 Chronic obstructive pulmonary disease, unspecified; F79 Unspecified intellectual disabilities; D72.829 Elevated white blood cell count, unspecified; N40.0 Benign prostatic hyperplasia without lower urinary tract symptoms; H40.9 Unspecified glaucoma; Z87.440 Personal history of urinary (tract) infections; E03.9 Hypothyroidism, unspecified; D50.9 Iron deficiency anemia, unspecified; G47.33 Obstructive sleep apnea (adult) (pediatric); K59.00 Constipation, unspecified; R53.83 Other fatigue; F17.210 Nicotine dependence, cigarettes, uncomplicated; Z79.2 Long term (current) use of antibiotics; Z79.899 Other long term (current) drug therapy; Z88.8 Allergy status to other drugs, medicaments and biological substances
CPT/HCPCS: 36415; 71045; 71275; 80048; 80076; 80175; 81001; 82306; 82803; 83605; 84145; 85025; 85027; 87040; 87088; 87186; 87205; 87486; 87581; 87633; 87641; 87798; 92526; 92610; 93005; 94640; 94760; 96365; 96372; 96375; 97161; 97530; 99285; G0378; G0463; J0696; J1650; Q9967

== ENCOUNTER → 2024-07-22 | Outpatient (CLI) | payer MEDICARE, MEDICAID ==
[~2024-07-22] MED LIST changes: +AMOX875T2 PO; +BARIUM SULFATE 700 MG TABLET (E-Z-DISK) As Ordered ONE; +CEFD1CAP9 PO; +DOXY-441 PO; -DOXYCYCLINE HYCLATE 100MG TABLET PO SCH; +DULC10SU2 PR; +E-Z-PAQUE 96% w/w SUSP 176GM BTL As Ordered ONE; +LIDO5TD TD; +NYST1POW3 TOP; +PRED20TA PO; +VARIBAR NECTAR 40% w/v 240ML SUSP BTL As Ordered ONE; +VARIBAR PUDDING 40% w/v 230ML TUBE As Ordered ONE
== END ==
LOC: M RAD 11:30
PROVIDERS: ATTEND Internal Medicine
DX: R13.12 Dysphagia, oropharyngeal phase (principal)

== ENCOUNTER → 2024-09-20 | Outpatient (CLI) | payer MEDICARE, MEDICAID ==
[~2024-09-20] MED LIST changes: -BARIUM SULFATE 700 MG TABLET (E-Z-DISK) As Ordered ONE; -E-Z-PAQUE 96% w/w SUSP 176GM BTL As Ordered ONE; -VARIBAR NECTAR 40% w/v 240ML SUSP BTL As Ordered ONE; -VARIBAR PUDDING 40% w/v 230ML TUBE As Ordered ONE
== END ==
LOC: M WUC 10:36
PROVIDERS: ATTEND Student in an Organized Health Care Education/Training Program
DX: S42.025A Nondisplaced fracture of shaft of left clavicle, initial encounter for closed fracture (principal); Y93.9 Activity, unspecified; Y92.9 Unspecified place or not applicable

== ENCOUNTER 2024-09-24 10:02 | Inpatient (IN) | payer MEDICARE, MEDICAID ==
[~2024-09-24] VITALS: Ht 147.3 cm; Wt 78.9 kg
[2024-09-24] MEDS: IPRATROPIUM 0.5MG/ALBUTEROL 2.5MG INH SOL UD 3ML (DUONEB) NEB ONE (11:14)
[2024-09-24] MEDS: ALBUTEROL SULFATE 2.5MG/0.5ML INH NEB SOLN INH ONE (11:15)
[2024-09-24 12:05] LABS: BASO % 0.4 % (0.0-1.0); EOS # 0.1 10^3/uL (0.0-0.5); EOS % 2.3 % (0.0-3.0); HEMATOCRIT 33.3 % (42.0-52.0); LYMPH # 0.9 10^3/uL (1.5-5.0); LYMPH % 18.2 % (24.0-44.0); MEAN CORPUSCULAR HEMOGLOBIN 32.4 pg (27.0-33.0); MEAN CORPUSCULAR VOLUME 97.9 fl (80.0-96.0); MONO # 0.3 10^3/uL (0.0-0.8); MONO % 5.5 % (2.0-8.0); NEUTROPHILS # 3.7 10^3/uL (1.5-8.5); NEUTROPHILS % 72.2 % (36.0-66.0); PLATELET COUNT, AUTOMATED 127 10^3/uL (150-450); WHITE BLOOD COUNT 5.1 10^3/uL (4.0-10.0)
[2024-09-24 12:16] LABS: CPK CREATINE PHOSPHOKINASE 62 U/L (46-171)
[2024-09-24 12:17] LABS: ALBUMIN 2.6 G/DL (3.2-5.2); ALKALINE PHOSPHATASE 160 U/L (40-129); ALT/SGPT 20 U/L (7.0-40); AST/SGOT 17 U/L (<34); BILIRUBIN,DIRECT 0.1 MG/DL (<0.4); BILIRUBIN,TOTAL 0.3 MG/DL (0.3-1.2); BLOOD UREA NITROGEN 25 MG/DL (9-23); CARBON DIOXIDE LEVEL 26 MMOL/L (20-31); CHLORIDE LEVEL 105 MMOL/L (98-107); CK-MB VALUE MASS 5.5 NG/ML (<3.6); CREATININE FOR GFR 0.88 MG/DL (0.70-1.30); GLOMERULAR FILTRATION RATE > 60.0 (>42); GLUCOSE, FASTING 71 MG/DL (74-106); MB/CK RELATIVE INDEX 8.87 (< OR =4); POTASSIUM SERUM 4.3 MMOL/L (3.5-5.1); SODIUM LEVEL 137 MMOL/L (136-145); TOTAL PROTEIN 5.7 G/DL (5.7-8.2)
[2024-09-24 12:18] LABS: FREE T4 1.29 NG/DL (0.89-1.76)
[2024-09-24 12:19] LABS: THYROID STIMULATING HORMONE 6.985 uIU/ML (0.55-4.78)
[2024-09-24] MEDS: LIDOCAINE 2% 5ML JELLY UROJET TOP ONE (12:30)
[2024-09-24] MEDS ORDERED: ISOVUE-370 76% 100ML VIAL As Ordered ONE (12:31)
[2024-09-24] MEDS: methylPREDNISolone 125MG 2ML VIAL IV ONE (12:50)
[2024-09-24] MEDS: NS 500 ML IV ONE (13:10)
[2024-09-24] MEDS: PIPERACILLIN/TAZOBACTAM SOD 4.5 GM in DEXTROSE 5% (D5W) ADV/MINI-BAG 50 ML IV ONE (13:10)
[2024-09-24 13:17] LABS: CK-MB VALUE MASS 6.2 NG/ML (<3.6)
[2024-09-24 13:21] LABS: MB/CK RELATIVE INDEX 11.07 (< OR =4)
[2024-09-24] MEDS ORDERED: D5W/0.45% SODIUM CHLORIDE 1,000 ML IV ONE (14:00)
[2024-09-24 14:28] LABS: ABG BASE EXCESS -0.7 (-2.0-2.0); ABG HCO3 23.8 MMOL/L (22.0-26.0); ABG O2 SATURATION 90.5 % (95.0-99.0); ABG PARTIAL PRESSURE O2 58.4 mmHg (75.0-100.0); ABG STANDARD HCO3 23.7 MMOL/L. (22.0-26.0); ABG pH (ARTERIAL) 7.404 UNITS (7.350-7.450)
[2024-09-24 14:29] LABS: KETONE, URINE AUTO RFX NEGATIVE (NEGATIVE); LEUKOCYTE ESTERASE UR AUTO RFX 2+ (NEGATIVE); NITRITE, URINE AUTO RFX POSITIVE (NEGATIVE); RBC, URINE AUTO RFX 8 /HPF (0-3); SQUAM EPITHELIAL CELL UR AURFX 0 /HPF (0-6); WBC, URINE AUTO RFX 27 /HPF (0-3)
[2024-09-24] MEDS ORDERED: NYST1POW3 TOP (14:35)
[2024-09-24] MEDS ORDERED: HOME MED LIST COMPLETE! XX SCH (14:40)
[2024-09-24] MEDS ORDERED: GLUCOSE 4 GM CHEW PO PRN (14:55)
[2024-09-24] MEDS ORDERED: DEXTROSE 50% 50ML SYRINGE IV PRN (14:55)
[2024-09-24] MEDS ORDERED: GLUCAGON INJ 1MG VIAL SC PRN (14:55)
[2024-09-24] MEDS ORDERED: PERCOCET 5MG/325MG TAB PO PRN ×2 (14:55)
[2024-09-24] MEDS: IPRATROPIUM 0.5MG/ALBUTEROL 2.5MG INH SOL UD 3ML (DUONEB) NEB SCH (15:45)
[2024-09-24 18:30] VITALS: BP 135/69; TEMP 97; O2SAT 96
[2024-09-24 19:59] VITALS: BP 147/63; TEMP 97.6; O2SAT 92
[2024-09-24] MEDS: PIPERACILLIN/TAZOBACTAM SOD 4.5 GM in DEXTROSE 5% (D5W) ADV/MINI-BAG 50 ML IV SCH (20:23)
[2024-09-24] MEDS: FINASTERIDE 5MG TAB PO SCH (20:24)
[2024-09-24] MEDS: methylPREDNISolone 40MG 1ML VIAL IV SCH (20:24)
[2024-09-24] MEDS: CLORAZEPATE 3.75MG TAB PO SCH (20:24)
[2024-09-24] MEDS: DOXYCYCLINE HYCLATE 100MG TABLET PO SCH (20:24)
[2024-09-24] MEDS: lamoTRIgine 100MG TAB PO SCH (20:25)
[2024-09-24] MEDS: DOCUSATE SODIUM 100MG CAPSULE PO SCH (20:25)
[2024-09-24] MEDS: QUEtiapine FUMARATE 50MG TAB PO SCH (20:25)
[2024-09-24] MEDS: LATANOPROST 0.005% OPHTH SOLN 2.5 ML OU SCH (20:37)
[2024-09-24] MEDS: TOPIRAMATE (TopAMAX) 100 MG TAB PO SCH (20:37)
[2024-09-24] MEDS: BRIMONIDINE 0.15% OPHTH SOLN 5 ML OU SCH (20:38)
[2024-09-24] MEDS ORDERED: DOXEPIN 3 MG PO SCH (21:00)
[2024-09-24] MEDS ORDERED: PIPERACILLIN/TAZOBACTAM SOD 3.375 GM in DEXTROSE 5% (D5W) ADV/MINI-BAG 50 ML IV SCH (21:00)
[2024-09-24] MEDS ORDERED: DOXEPIN 25 MG CAP PO SCH (21:00)
[2024-09-24 23:45] VITALS: BP 129/58; TEMP 98.2; O2SAT 97
[2024-09-25] VITALS (15 sets, daily range): BP systolic 118–138; BP diastolic 58–84; TEMP 97.4–99.5; O2SAT 92–97
[2024-09-25] MEDS: IPRATROPIUM 0.5MG/ALBUTEROL 2.5MG INH SOL UD 3ML (DUONEB) NEB ONE (01:50)
[2024-09-25] MEDS: LEVOTHYROXINE 88MCG TABLET (0.088 MG) PO SCH (05:27)
[2024-09-25 07:16] LABS: HEMATOCRIT 30.5 % (42.0-52.0); HEMOGLOBIN 10.2 g/dl (13.5-17.5); MEAN CORPUSCULAR HEMOGLOBIN 32.9 pg (27.0-33.0); MEAN CORPUSCULAR HGB CONC 33.4 g/dl (32.0-36.5); MEAN CORPUSCULAR VOLUME 98.4 fl (80.0-96.0); PLATELET COUNT, AUTOMATED 135 10^3/uL (150-450); WHITE BLOOD COUNT 6.7 10^3/uL (4.0-10.0)
[2024-09-25 07:41] LABS: BLOOD UREA NITROGEN 26 MG/DL (9-23); CALCIUM LEVEL 9.2 MG/DL (8.3-10.6); CARBON DIOXIDE LEVEL 23 MMOL/L (20-31); CHLORIDE LEVEL 109 MMOL/L (98-107); CREATININE FOR GFR 0.97 MG/DL (0.70-1.30); GLOMERULAR FILTRATION RATE > 60.0 (>42); GLUCOSE, FASTING 88 MG/DL (74-106); SODIUM LEVEL 140 MMOL/L (136-145)
[2024-09-25 08:35] LABS: PROCALCITONIN 0.51 ng/ml
[2024-09-25] MEDS: PARoxetine 10MG TABLET PO SCH (09:39)
[2024-09-25] MEDS: FERROUS SULFATE 325MG TAB PO SCH (09:39)
[2024-09-25] MEDS: TAMSULOSIN 0.4 MG CAP PO SCH (09:39)
[2024-09-25] MEDS: IPRATROPIUM 0.5MG/ALBUTEROL 2.5MG INH SOL UD 3ML (DUONEB) NEB SCH (19:30)
[2024-09-25] MEDS: ENOXAPARIN 40MG/0.4ML SYRINGE (J1650 PER 10MG) SC SCH (21:04)
[2024-09-26 04:21] VITALS: BP 124/56; TEMP 99.1; O2SAT 97
[2024-09-26 05:13] LABS: HEMATOCRIT 30.3 % (42.0-52.0); HEMOGLOBIN 9.9 g/dl (13.5-17.5); LYMPH # 0.6 10^3/uL (1.5-5.0); LYMPH % 12.6 % (24.0-44.0); MEAN CORPUSCULAR HEMOGLOBIN 32.6 pg (27.0-33.0); MEAN CORPUSCULAR HGB CONC 32.7 g/dl (32.0-36.5); MEAN CORPUSCULAR VOLUME 99.7 fl (80.0-96.0); MONO # 0.3 10^3/uL (0.0-0.8); MONO % 5.1 % (2.0-8.0); NEUTROPHILS # 4.1 10^3/uL (1.5-8.5); NEUTROPHILS % 80.7 % (36.0-66.0); PLATELET COUNT, AUTOMATED 151 10^3/uL (150-450); RED BLOOD COUNT 3.04 10^6/uL (4.30-6.10); WHITE BLOOD COUNT 5.1 10^3/uL (4.0-10.0)
[2024-09-26 05:39] LABS: BLOOD UREA NITROGEN 26 MG/DL (9-23); CALCIUM LEVEL 8.6 MG/DL (8.3-10.6); CARBON DIOXIDE LEVEL 22 MMOL/L (20-31); CHLORIDE LEVEL 111 MMOL/L (98-107); CREATININE FOR GFR 0.97 MG/DL (0.70-1.30); GLOMERULAR FILTRATION RATE > 60.0 (>42); GLUCOSE, FASTING 137 MG/DL (74-106); POTASSIUM SERUM 3.6 MMOL/L (3.5-5.1); SODIUM LEVEL 146 MMOL/L (136-145)
[2024-09-26 08:27] VITALS: BP 120/58; TEMP 98.3; O2SAT 94
[2024-09-26] MEDS: metroNIDAZOLE (FLAGYL) 500MG TABLET PO SCH (09:00)
[2024-09-26] MEDS: D5W 500 ML IV SCH (10:30)
[2024-09-26] MEDS: predniSONE 20 MG TAB PO SCH (12:53)
[2024-09-26] MEDS: LevoFLOXacin 750 MG TABLET PO SCH (12:54)
[2024-09-26] MEDS: UNRESOLVED PATIENT OWN MED ORDER XX SCH (14:06)
[2024-09-26 15:42] VITALS: BP 144/63; TEMP 98.1; O2SAT 94
[2024-09-26 20:06] VITALS: BP 139/61; TEMP 99.5; O2SAT 95
[2024-09-27 03:49] VITALS: BP 161/72; TEMP 97.4; O2SAT 93
[2024-09-27 06:40] LABS: BLOOD UREA NITROGEN 19 MG/DL (9-23); CALCIUM LEVEL 9.1 MG/DL (8.3-10.6); CARBON DIOXIDE LEVEL 22 MMOL/L (20-31); CHLORIDE LEVEL 113 MMOL/L (98-107); CREATININE FOR GFR 0.82 MG/DL (0.70-1.30); GLOMERULAR FILTRATION RATE > 60.0 (>42); GLUCOSE, FASTING 76 MG/DL (74-106); SODIUM LEVEL 145 MMOL/L (136-145)
[2024-09-27 08:01] VITALS: BP 178/80; TEMP 99.4; O2SAT 95
[2024-09-27 09:58] VITALS: BP 171/94
[2024-09-27] MEDS: amLODIPine 5 MG TAB PO SCH (09:58)
[2024-09-27 11:51] VITALS: BP 158/90
[2024-09-27] MEDS ORDERED: AMLO1TAB24 PO (11:57)
[2024-09-27] MEDS ORDERED: METR-265 PO (11:57)
[2024-09-27] MEDS ORDERED: PRED20TA PO (11:57)
[2024-09-27] MEDS ORDERED: LEVO1TAB40 PO (11:57)
[2024-09-27] MEDS ORDERED: FERR1TAB8 PO (11:57)
== END 2024-09-27 14:26 | disposition home or self-care (01) | DRG 190 ==
LOC: M ED 10:02 → M ED INP 14:54 → M PCU 18:28
PROVIDERS: ADMIT Internal Medicine; ATTEND Internal Medicine
DX: J44.1 Chronic obstructive pulmonary disease with (acute) exacerbation (principal); J18.9 Pneumonia, unspecified organism; N39.0 Urinary tract infection, site not specified; E87.0 Hyperosmolality and hypernatremia; J98.11 Atelectasis; G40.909 Epilepsy, unspecified, not intractable, without status epilepticus; R68.0 Hypothermia, not associated with low environmental temperature; F79 Unspecified intellectual disabilities; R13.12 Dysphagia, oropharyngeal phase; D50.9 Iron deficiency anemia, unspecified; N40.0 Benign prostatic hyperplasia without lower urinary tract symptoms; J44.0 Chronic obstructive pulmonary disease with (acute) lower respiratory infection; F39 Unspecified mood [affective] disorder; E03.9 Hypothyroidism, unspecified; I10 Essential (primary) hypertension; Z86.73 Personal history of transient ischemic attack (TIA), and cerebral infarction without residual deficits; R29.6 Repeated falls; H40.9 Unspecified glaucoma; Z79.899 Other long term (current) drug therapy; Z88.8 Allergy status to other drugs, medicaments and biological substances; F17.200 Nicotine dependence, unspecified, uncomplicated

== ENCOUNTER → 2024-10-22 | Outpatient (CLI) | payer MEDICARE, MEDICAID ==
[~2024-10-22] MED LIST changes: +AMLO1TAB24 PO; +METR-265 PO
== END ==
LOC: M ADAMS 09:18
PROVIDERS: ATTEND Physician Assistant
DX: Z87.01 Personal history of pneumonia (recurrent) (principal); S22.41XD Multiple fractures of ribs, right side, subsequent encounter for fracture with routine healing; M19.011 Primary osteoarthritis, right shoulder; M19.012 Primary osteoarthritis, left shoulder; M47.9 Spondylosis, unspecified

== ENCOUNTER → 2024-10-22 | Outpatient (REF) | payer MEDICARE, MEDICAID ==
[2024-10-22 13:09] LABS: HEMATOCRIT 43.8 % (42.0-52.0); HEMOGLOBIN 14.3 g/dl (13.5-17.5); MEAN CORPUSCULAR HEMOGLOBIN 32.5 pg (27.0-33.0); MEAN CORPUSCULAR HGB CONC 32.6 g/dl (32.0-36.5); MEAN CORPUSCULAR VOLUME 99.5 fl (80.0-96.0); PLATELET COUNT, AUTOMATED 253 10^3/uL (150-450); WHITE BLOOD COUNT 6.7 10^3/uL (4.0-10.0)
[2024-10-22 13:27] LABS: ALBUMIN 3.4 G/DL (3.2-5.2); ALKALINE PHOSPHATASE 144 U/L (40-129); ALT/SGPT 13 U/L (7.0-40); AST/SGOT 12 U/L (<34); BILIRUBIN,TOTAL 0.2 MG/DL (0.3-1.2); BLOOD UREA NITROGEN 11 MG/DL (9-23); CALCIUM LEVEL 9.6 MG/DL (8.3-10.6); CARBON DIOXIDE LEVEL 26 MMOL/L (20-31); CHLORIDE LEVEL 107 MMOL/L (98-107); CREATININE FOR GFR 0.74 MG/DL (0.70-1.30); GLOMERULAR FILTRATION RATE > 60.0 (>42); GLUCOSE, FASTING 89 MG/DL (74-106); POTASSIUM SERUM 4.2 MMOL/L (3.5-5.1); SODIUM LEVEL 138 MMOL/L (136-145); TOTAL PROTEIN 6.4 G/DL (5.7-8.2)
[2024-10-22 13:28] LABS: FREE T4 1.33 NG/DL (0.89-1.76); THYROID STIMULATING HORMONE 5.943 uIU/ML (0.55-4.78)
[2024-10-22 13:29] LABS: VITAMIN B12 LEVEL 528 PG/ML (211-911)
[2024-10-22 13:33] LABS: FOLATE 19.1 NG/ML (>5.4)
[2024-10-23 13:25] LABS: APPEARANCE, URINE CLOUDY (CLEAR); BACTERIA, URINE AUTO NEGATIVE (NEGATIVE); BILIRUBIN, URINE AUTO NEGATIVE (NEGATIVE); BLOOD, URINE BLOOD NEGATIVE (NEGATIVE); CALCIUM OXALATE CRYSTALS SMALL; COLOR, URINE YELLOW (YELLOW); GLUCOSE, URINE (UA) AUTO NEGATIVE (NEGATIVE); KETONE, URINE AUTO NEGATIVE (NEGATIVE); LEUKOCYTE ESTERASE, URINE AUTO TRACE (NEGATIVE); NITRITE, URINE AUTO NEGATIVE (NEGATIVE); PROTEIN, URINE AUTO NEGATIVE (NEGATIVE); RBC, URINE AUTO 0 /HPF (0-3); SQUAMOUS EPITHELIAL CELL UR AU 0 /HPF (0-6); UROBILINOGEN, URINE AUTO 0.2 mg/dL (0.0-2.0); WBC, URINE AUTO 9 /HPF (0-3)
== END ==
LOC: M SFHCADAM 09:46
PROVIDERS: ATTEND Physician Assistant
DX: G40.909 Epilepsy, unspecified, not intractable, without status epilepticus (principal); R82.998 Other abnormal findings in urine; I10 Essential (primary) hypertension; E03.9 Hypothyroidism, unspecified; R45.1 Restlessness and agitation

== ENCOUNTER → 2024-11-15 | Outpatient (CLI) | payer MEDICARE, MEDICAID ==
[2024-11-15 14:42] LABS: BASO % 0.5 % (0.0-1.0); EOS # 0.1 10^3/uL (0.0-0.5); EOS % 2.1 % (0.0-3.0); HEMATOCRIT 41.3 % (42.0-52.0); HEMOGLOBIN 13.5 g/dl (13.5-17.5); LYMPH # 1.6 10^3/uL (1.5-5.0); LYMPH % 27.9 % (24.0-44.0); MEAN CORPUSCULAR HEMOGLOBIN 32.5 pg (27.0-33.0); MEAN CORPUSCULAR HGB CONC 32.7 g/dl (32.0-36.5); MEAN CORPUSCULAR VOLUME 99.3 fl (80.0-96.0); MONO # 0.5 10^3/uL (0.0-0.8); MONO % 8.8 % (2.0-8.0); NEUTROPHILS # 3.4 10^3/uL (1.5-8.5); NEUTROPHILS % 60.5 % (36.0-66.0); PLATELET COUNT, AUTOMATED 190 10^3/uL (150-450); RED BLOOD COUNT 4.16 10^6/uL (4.30-6.10); WHITE BLOOD COUNT 5.6 10^3/uL (4.0-10.0)
[2024-11-19 23:43] LABS: LAMOTRIGINE (LAMICTAL) 4.6 mcg/mL (2.5-15.0)
== END ==
LOC: M ADAMS 09:58
PROVIDERS: ATTEND Psychiatry & Neurology Neurology
DX: G40.89 Other seizures (principal); R41.82 Altered mental status, unspecified; E03.9 Hypothyroidism, unspecified

== ENCOUNTER → 2024-11-15 | Outpatient (REF) | payer MEDICARE, MEDICAID ==
[2024-11-15 15:09] LABS: THYROID STIMULATING HORMONE 5.626 uIU/ML (0.55-4.78)
[2024-11-15 15:10] LABS: FREE T4 1.1 NG/DL (0.89-1.76)
== END ==
LOC: M SFHCADAM 09:55
PROVIDERS: ATTEND Physician Assistant
DX: E03.9 Hypothyroidism, unspecified (principal)

== ENCOUNTER → 2024-12-11 | Outpatient (CLI) | payer MEDICARE, MEDICAID ==
[~2024-12-11] MED LIST changes: +CLOT1CRE56 TOP; +DOXY-442 PO; -DOXY100C82 PO; +FERR324T2 PO; +LEVO100T5 PO
== END ==
LOC: M ADAMS 14:41
PROVIDERS: ATTEND Family Medicine
DX: I51.7 Cardiomegaly (principal); J81.1 Chronic pulmonary edema; Z87.81 Personal history of (healed) traumatic fracture; R05.1 Acute cough; R53.81 Other malaise; R53.83 Other fatigue; R39.9 Unspecified symptoms and signs involving the genitourinary system

== ENCOUNTER → 2024-12-11 | Outpatient (REF) | payer MEDICARE, MEDICAID ==
[2024-12-11 17:33] LABS: APPEARANCE, URINE HAZY (CLEAR); BACTERIA, URINE AUTO 1+ (NEGATIVE); BILIRUBIN, URINE AUTO NEGATIVE (NEGATIVE); BLOOD, URINE BLOOD NEGATIVE (NEGATIVE); COLOR, URINE YELLOW (YELLOW); GLUCOSE, URINE (UA) AUTO NEGATIVE (NEGATIVE); KETONE, URINE AUTO NEGATIVE (NEGATIVE); LEUKOCYTE ESTERASE, URINE AUTO 3+ (NEGATIVE); MUCUS, URINE SMALL (NEGATIVE); NITRITE, URINE AUTO POSITIVE (NEGATIVE); PROTEIN, URINE AUTO NEGATIVE (NEGATIVE); RBC, URINE AUTO 2 /HPF (0-3); SPECIFIC GRAVITY URINE AUTO 1.005 (1.002-1.035); SQUAMOUS EPITHELIAL CELL UR AU 0 /HPF (0-6); UROBILINOGEN, URINE AUTO 0.2 mg/dL (0.0-2.0); WBC, URINE AUTO 86 /HPF (0-3)
[2024-12-11 17:36] LABS: BASO % 0.5 % (0.0-1.0); EOS # 0.1 10^3/uL (0.0-0.5); EOS % 1.7 % (0.0-3.0); HEMATOCRIT 40.4 % (42.0-52.0); HEMOGLOBIN 13.3 g/dl (13.5-17.5); LYMPH # 1.6 10^3/uL (1.5-5.0); LYMPH % 28.2 % (24.0-44.0); MEAN CORPUSCULAR HEMOGLOBIN 32.8 pg (27.0-33.0); MEAN CORPUSCULAR HGB CONC 32.9 g/dl (32.0-36.5); MEAN CORPUSCULAR VOLUME 99.8 fl (80.0-96.0); MONO # 0.3 10^3/uL (0.0-0.8); MONO % 5.9 % (2.0-8.0); NEUTROPHILS # 3.7 10^3/uL (1.5-8.5); NEUTROPHILS % 63.4 % (36.0-66.0); PLATELET COUNT, AUTOMATED 137 10^3/uL (150-450); RED BLOOD COUNT 4.05 10^6/uL (4.30-6.10); WHITE BLOOD COUNT 5.8 10^3/uL (4.0-10.0)
== END ==
LOC: M SFHCADAM 14:37
PROVIDERS: ATTEND Family Medicine
DX: R05.1 Acute cough (principal); R53.81 Other malaise; R53.83 Other fatigue; R39.9 Unspecified symptoms and signs involving the genitourinary system

== ENCOUNTER 2024-12-14 10:02 | Emergency (ER) | payer MEDICARE, MEDICAID ==
[~2024-12-14 10:02] MED LIST changes: -CLOT1CRE56 TOP; -FERR324T2 PO; -LEVO100T5 PO
[2024-12-14 11:16] LABS: HEMATOCRIT 36.1 % (42.0-52.0); HEMOGLOBIN 11.8 g/dl (13.5-17.5); MEAN CORPUSCULAR HEMOGLOBIN 31.6 pg (27.0-33.0); MEAN CORPUSCULAR HGB CONC 32.7 g/dl (32.0-36.5); MEAN CORPUSCULAR VOLUME 96.8 fl (80.0-96.0); PLATELET COUNT, AUTOMATED 107 10^3/uL (150-450); RED BLOOD COUNT 3.73 10^6/uL (4.30-6.10); WHITE BLOOD COUNT 7.6 10^3/uL (4.0-10.0)
[2024-12-14 11:33] LABS: KETONE, URINE AUTO RFX NEGATIVE (NEGATIVE); MUCUS, URINE RFX SMALL (NEGATIVE); RBC, URINE AUTO RFX 7 /HPF (0-3); SQUAM EPITHELIAL CELL UR AURFX 0 /HPF (0-6)
[2024-12-14 11:34] LABS: LEUKOCYTE ESTERASE UR AUTO RFX 3+ (NEGATIVE); NITRITE, URINE AUTO RFX POSITIVE (NEGATIVE); WBC, URINE AUTO RFX 115 /HPF (0-3)
[2024-12-14 11:35] LABS: ETHYL ALCOHOL (ETHANOL) < 0.003 % (0.000-0.010)
[2024-12-14 11:37] LABS: ALBUMIN 2.9 G/DL (3.2-5.2); ALKALINE PHOSPHATASE 147 U/L (40-129); ALT/SGPT 20 U/L (7.0-40); AST/SGOT 14 U/L (<34); BILIRUBIN,DIRECT < 0.1 MG/DL (<0.4); BILIRUBIN,TOTAL 0.2 MG/DL (0.3-1.2); BLOOD UREA NITROGEN 16 MG/DL (9-23); CALCIUM LEVEL 9.4 MG/DL (8.3-10.6); CARBON DIOXIDE LEVEL 23 MMOL/L (20-31); CHLORIDE LEVEL 106 MMOL/L (98-107); CK-MB VALUE MASS 4.7 NG/ML (<3.6); GLOMERULAR FILTRATION RATE > 60.0 (>42); GLUCOSE, FASTING 82 MG/DL (74-106); POTASSIUM SERUM 3.6 MMOL/L (3.5-5.1); SODIUM LEVEL 142 MMOL/L (136-145); TOTAL PROTEIN 5.9 G/DL (5.7-8.2)
[2024-12-14 11:41] LABS: THYROID STIMULATING HORMONE 11.138 uIU/ML (0.55-4.78)
[2024-12-14 11:46] LABS: ATYPICAL LYMPH 2 % (0-5); CPK CREATINE PHOSPHOKINASE 41 U/L (46-171); LYMPHOCYTES 11 % (16-44); MB/CK RELATIVE INDEX 11.46 (< OR =4); METAMYELOCYTES 3 % (0-0); MONOCYTES 7 % (0-5); NEUTROPHILS 65 % (28-66)
[2024-12-14 11:47] LABS: PLATELET ESTIMATE DECREASED (NORMAL)
[2024-12-14 12:31] VITALS: TEMP 97.8
[2024-12-14] MEDS: LevoFLOXacin IV 750 MG in IV 1 EA IV ONE (13:49)
[2024-12-14 17:53] VITALS: BP 116/72
[2024-12-14 18:17] VITALS: O2SAT 92
== END 2024-12-14 19:05 | disposition home or self-care (01) ==
LOC: M ED 10:02 → EDBD 10:02 → M ED 19:05
DX: N39.0 Urinary tract infection, site not specified (principal); J44.9 Chronic obstructive pulmonary disease, unspecified; I10 Essential (primary) hypertension; E03.9 Hypothyroidism, unspecified; G47.30 Sleep apnea, unspecified; G40.909 Epilepsy, unspecified, not intractable, without status epilepticus; N40.0 Benign prostatic hyperplasia without lower urinary tract symptoms; Z88.8 Allergy status to other drugs, medicaments and biological substances; Z79.52 Long term (current) use of systemic steroids; Z79.899 Other long term (current) drug therapy; Z79.2 Long term (current) use of antibiotics
CPT/HCPCS: 36415; 70450; 71045; 80048; 80076; 80175; 80201; 81001; 82077; 82140; 82550; 82553; 83605; 83880; 84443; 84484; 85025; 87040; 87088; 87186; 93005; 93041; 94760; 96365; 96366; 99285; J1956

== ENCOUNTER 2024-12-16 15:26 | Inpatient (IN) | payer MEDICARE, MEDICAID ==
[~2024-12-16] VITALS: Ht 137.2 cm; Wt 80.3 kg
[~2024-12-16 15:26] MED LIST changes: -FLOM0.4C39 PO; +TAMS-18 PO; +TOPI-257 PO; -TOPI100T9 PO
[2024-12-16 16:53] LABS: HEMATOCRIT 33.2 % (42.0-52.0); HEMOGLOBIN 11.3 g/dl (13.5-17.5); MEAN CORPUSCULAR HEMOGLOBIN 32.8 pg (27.0-33.0); MEAN CORPUSCULAR VOLUME 96.2 fl (80.0-96.0); PLATELET COUNT, AUTOMATED 102 10^3/uL (150-450); RED BLOOD COUNT 3.45 10^6/uL (4.30-6.10); WHITE BLOOD COUNT 3.7 10^3/uL (4.0-10.0)
[2024-12-16 17:04] LABS: KETONE, URINE AUTO RFX NEGATIVE (NEGATIVE); NITRITE, URINE AUTO RFX NEGATIVE (NEGATIVE); RBC, URINE AUTO RFX 1 /HPF (0-3); SQUAM EPITHELIAL CELL UR AURFX 0 /HPF (0-6)
[2024-12-16 17:12] LABS: ALBUMIN 2.7 G/DL (3.2-5.2); ALKALINE PHOSPHATASE 161 U/L (40-129); ALT/SGPT 18 U/L (7.0-40); AST/SGOT 13 U/L (<34); BILIRUBIN,DIRECT < 0.1 MG/DL (<0.4); BILIRUBIN,TOTAL 0.2 MG/DL (0.3-1.2); BLOOD UREA NITROGEN 15 MG/DL (9-23); CALCIUM LEVEL 10.2 MG/DL (8.3-10.6); CARBON DIOXIDE LEVEL 24 MMOL/L (20-31); CHLORIDE LEVEL 108 MMOL/L (98-107); CREATININE FOR GFR 0.71 MG/DL (0.70-1.30); GLOMERULAR FILTRATION RATE > 60.0 (>42); GLUCOSE, FASTING 90 MG/DL (74-106); POTASSIUM SERUM 4.2 MMOL/L (3.5-5.1); SODIUM LEVEL 138 MMOL/L (136-145); TOTAL PROTEIN 5.8 G/DL (5.7-8.2)
[2024-12-16 17:15] LABS: THYROID STIMULATING HORMONE 9.195 uIU/ML (0.55-4.78)
[2024-12-16 17:17] LABS: LEUKOCYTE ESTERASE UR AUTO RFX 1+ (NEGATIVE); WBC, URINE AUTO RFX 15 /HPF (0-3)
[2024-12-16 17:19] LABS: PROCALCITONIN 0.24 ng/ml
[2024-12-16 17:39] LABS: ATYPICAL LYMPH 3 % (0-5); EOSINOPHILS 1 % (0-3); LYMPHOCYTES 17 % (16-44); MONOCYTES 1 % (0-5); NEUTROPHILS 73 % (28-66); PLATELET ESTIMATE DECREASED (NORMAL)
[2024-12-16] MEDS: LevoFLOXacin IV 750 MG in IV 1 EA IV ONE (19:22)
[2024-12-16] MEDS ORDERED: CLOT1CRE56 TOP (20:07)
[2024-12-16] MEDS ORDERED: FERR324T2 PO (20:07)
[2024-12-16] MEDS ORDERED: LEVO100T5 PO (20:07)
[2024-12-16] MEDS ORDERED: HOME MED LIST COMPLETE! XX SCH (20:10)
[2024-12-16] MEDS: NYSTATIN 100,000 UNITS/GM TOPICAL PWD 15GM TOP SCH (21:00)
[2024-12-16] MEDS ORDERED: MOM 30ML SUSPENSION UDC PO PRN (21:05)
[2024-12-16] MEDS ORDERED: MAALOX 30 ML SUSP *UDC PO PRN (21:05)
[2024-12-16] MEDS: lamoTRIgine 100MG TAB PO SCH (22:22)
[2024-12-16] MEDS: SPIRONOLACTONE 25 MG TAB PO SCH (22:22)
[2024-12-16] MEDS: FINASTERIDE 5MG TAB PO SCH (22:22)
[2024-12-16] MEDS: QUEtiapine FUMARATE 50MG TAB PO SCH (22:22)
[2024-12-16] MEDS: TOPIRAMATE (TopAMAX) 100 MG TAB PO SCH (22:22)
[2024-12-16] MEDS: DOCUSATE SODIUM 100MG CAPSULE PO SCH (22:23)
[2024-12-16] MEDS: NS (Normal Saline) 0.9% 1,000 ML IV SCH (22:23)
[2024-12-16 22:49] LABS: MAGNESIUM LEVEL 1.7 MG/DL (1.8-2.4)
[2024-12-16 23:06] LABS: VENOUS BASE EXCESS -1.5 (-2.0-2.0); VENOUS HCO3 24.4 MMOL/L (23.0-27.0); VENOUS O2 SATURATION 94.7 % (60.0-80.0); VENOUS PARTIAL PRESSURE O2 76.3 mmHg (30.0-50.0); VENOUS PH 7.343 UNITS (7.330-7.430); VENOUS STANDARD HCO3 23.2 MMOL/L; VENOUS TOTAL CO2 25.8 MMOL/L (24.0-28.0)
[2024-12-16] MEDS: LATANOPROST 0.005% OPHTH SOLN 2.5 ML OU SCH (23:24)
[2024-12-16] MEDS: BRIMONIDINE 0.15% OPHTH SOLN 5 ML OU SCH (23:24)
[2024-12-17] VITALS (19 sets, daily range): BP systolic 111–125; BP diastolic 56–58; TEMP 94.6–98.2; O2SAT 91–97
[2024-12-17 06:29] LABS: HEMATOCRIT 34.2 % (42.0-52.0); HEMOGLOBIN 11.4 g/dl (13.5-17.5); MEAN CORPUSCULAR HEMOGLOBIN 31.9 pg (27.0-33.0); MEAN CORPUSCULAR HGB CONC 33.3 g/dl (32.0-36.5); MEAN CORPUSCULAR VOLUME 95.8 fl (80.0-96.0); PLATELET COUNT, AUTOMATED 111 10^3/uL (150-450); RED BLOOD COUNT 3.57 10^6/uL (4.30-6.10); WHITE BLOOD COUNT 5.7 10^3/uL (4.0-10.0)
[2024-12-17 06:55] LABS: ALBUMIN 2.6 G/DL (3.2-5.2); ALKALINE PHOSPHATASE 161 U/L (40-129); ALT/SGPT 17 U/L (7.0-40); AST/SGOT 17 U/L (<34); BILIRUBIN,TOTAL 0.2 MG/DL (0.3-1.2); BLOOD UREA NITROGEN 14 MG/DL (9-23); CALCIUM LEVEL 9.4 MG/DL (8.3-10.6); CARBON DIOXIDE LEVEL 23 MMOL/L (20-31); CHLORIDE LEVEL 109 MMOL/L (98-107); GLOMERULAR FILTRATION RATE > 60.0 (>42); GLUCOSE, FASTING 63 MG/DL (74-106); MAGNESIUM LEVEL 1.8 MG/DL (1.8-2.4); POTASSIUM SERUM 4.3 MMOL/L (3.5-5.1); SODIUM LEVEL 141 MMOL/L (136-145); TOTAL PROTEIN 5.7 G/DL (5.7-8.2)
[2024-12-17] MEDS: LEVOTHYROXINE 100MCG TABLET (0.1MG) PO SCH (07:00)
[2024-12-17] MEDS: CLORAZEPATE 3.75MG TAB PO SCH (08:17)
[2024-12-17] MEDS: FERROUS SULFATE 325MG TAB PO SCH (08:18)
[2024-12-17] MEDS: PARoxetine 10MG TABLET PO SCH (08:18)
[2024-12-17] MEDS: MIRALAX *UNIT DOSE* 17GM PACKET PO SCH (08:18)
[2024-12-17] MEDS: TAMSULOSIN 0.4 MG CAP PO SCH (08:18)
[2024-12-17] MEDS: IPRATROPIUM 0.5MG/ALBUTEROL 2.5MG INH SOL UD 3ML INH SCH (09:02)
[2024-12-17] MEDS ORDERED: GLUCOSE 4 GM CHEW PO PRN (10:50)
[2024-12-17] MEDS ORDERED: GLUCAGON INJ 1MG VIAL SC PRN (10:50)
[2024-12-17 17:05] LABS: CORTISOL AM 15.1 UG/DL (4.3-22.4); FREE T4 1.13 NG/DL (0.89-1.76); THYROXINE (T4) 9.5 UG/DL (4.5-10.9)
[2024-12-17] MEDS: LevoFLOXacin IV 750 MG in IV 1 EA IV SCH (18:48)
[2024-12-17] MEDS ORDERED: DOXEPIN 25 MG CAP PO SCH (21:00)
[2024-12-18] VITALS (30 sets, daily range): BP systolic 106–162; BP diastolic 53–74; TEMP 97.6–100.4; O2SAT 90–99
[2024-12-18] MEDS: DEXTROSE 50% 50ML SYRINGE IV PRN (01:57)
[2024-12-18] MEDS ORDERED: LR 1,000 ML IV SCH (05:25)
[2024-12-18] MEDS: D5W/LR 1,000 ML IV SCH (06:11)
[2024-12-18 06:51] LABS: BLOOD UREA NITROGEN 17 MG/DL (9-23); CALCIUM LEVEL 8.9 MG/DL (8.3-10.6); CARBON DIOXIDE LEVEL 23 MMOL/L (20-31); CHLORIDE LEVEL 112 MMOL/L (98-107); CREATININE FOR GFR 1.08 MG/DL (0.70-1.30); GLOMERULAR FILTRATION RATE > 60.0 (>42); GLUCOSE, FASTING 81 MG/DL (74-106); POTASSIUM SERUM 4.6 MMOL/L (3.5-5.1); SODIUM LEVEL 144 MMOL/L (136-145)
[2024-12-18] MEDS: ENOXAPARIN 40MG/0.4ML SYRINGE (J1650 PER 10MG) SC SCH (08:29)
[2024-12-18] MEDS: LevoFLOXacin 750 MG TABLET PO SCH (17:34)
[2024-12-18 18:13] LABS: HEMATOCRIT 34.5 % (42.0-52.0); HEMOGLOBIN 11.5 g/dl (13.5-17.5); MEAN CORPUSCULAR HEMOGLOBIN 32.6 pg (27.0-33.0); MEAN CORPUSCULAR HGB CONC 33.3 g/dl (32.0-36.5); MEAN CORPUSCULAR VOLUME 97.7 fl (80.0-96.0); PLATELET COUNT, AUTOMATED 153 10^3/uL (150-450); RED BLOOD COUNT 3.53 10^6/uL (4.30-6.10); WHITE BLOOD COUNT 8.6 10^3/uL (4.0-10.0)
[2024-12-18] MEDS: D5W/0.45% SODIUM CHLORIDE 1,000 ML IV SCH (18:21)
[2024-12-18] MEDS: PIPERACILLIN/TAZOBACTAM SOD 3.375 GM in DEXTROSE 5% (D5W) ADV/MINI-BAG 50 ML IV SCH (18:21)
[2024-12-18 18:45] LABS: PROCALCITONIN 0.25 ng/ml
[2024-12-18 18:49] LABS: C REACTIVE PROTEIN QUANTITATIV 15.37 MG/DL (<1.0)
[2024-12-18 19:01] LABS: ATYPICAL LYMPH 1 % (0-5); LYMPHOCYTES 13 % (16-44); MONOCYTES 3 % (0-5); NEUTROPHILS 81 % (28-66)
[2024-12-18 19:03] LABS: PLATELET ESTIMATE DECREASED (NORMAL)
[2024-12-19] VITALS (30 sets, daily range): BP systolic 102–138; BP diastolic 56–75; TEMP 97–98; O2SAT 94–100
[2024-12-19 06:28] LABS: CALCIUM LEVEL 8.7 MG/DL (8.3-10.6); CREATININE FOR GFR 1.01 MG/DL (0.70-1.30); GLOMERULAR FILTRATION RATE 77.6 (>42); MAGNESIUM LEVEL 2.1 MG/DL (1.8-2.4); POTASSIUM SERUM 3.8 MMOL/L (3.5-5.1)
[2024-12-19 07:42] LABS: PROCALCITONIN 0.15 ng/ml
[2024-12-19] MEDS: D5W 1,000 ML IV SCH (08:01)
[2024-12-19 12:58] LABS: CALCIUM LEVEL 8.7 MG/DL (8.3-10.6); CREATININE FOR GFR 0.92 MG/DL (0.70-1.30); GLOMERULAR FILTRATION RATE 86.8 (>42); POTASSIUM SERUM 3.5 MMOL/L (3.5-5.1)
[2024-12-19] MEDS: DOXEPIN 3 MG PO SCH (20:59)
[2024-12-20] VITALS (25 sets, daily range): BP systolic 106–166; BP diastolic 50–90; TEMP 97–98.8; O2SAT 93–98
[2024-12-20 06:05] LABS: BLOOD UREA NITROGEN 13 MG/DL (9-23); CALCIUM LEVEL 8.8 MG/DL (8.3-10.6); CARBON DIOXIDE LEVEL 22 MMOL/L (20-31); CHLORIDE LEVEL 112 MMOL/L (98-107); CREATININE FOR GFR 0.79 MG/DL (0.70-1.30); GLOMERULAR FILTRATION RATE > 90.0 (>42); GLUCOSE, FASTING 90 MG/DL (74-106); POTASSIUM SERUM 3.8 MMOL/L (3.5-5.1); SODIUM LEVEL 144 MMOL/L (136-145)
[2024-12-20] MEDS ORDERED: propofoL 200 MG/20 ML VIAL As Ordered ONE (08:36)
[2024-12-20] MEDS ORDERED: ONDANSETRON 4MG 2ML VIAL As Ordered ONE (08:36)
[2024-12-20] MEDS ORDERED: KETOROLAC 30 MG/ML 1ML VIAL As Ordered ONE (08:36)
[2024-12-20] MEDS ORDERED: fentaNYL 100 MCG/2 ML INJECTION As Ordered ONE (08:36)
[2024-12-20] MEDS ORDERED: LIDOCAINE 2% 100MG/5ML SDV (FOR ANES.) As Ordered ONE (13:28)
[2024-12-20] MEDS ORDERED: ROCURONIUM BROMIDE 50MG/5ML VIAL As Ordered ONE (13:59)
[2024-12-20] MEDS ORDERED: SUGAMMADEX SODIUM 500 MG/5 ML VIAL (BRIDION) As Ordered ONE (14:32)
[2024-12-20] MEDS ORDERED: ONDANSETRON 4MG 2ML VIAL IV PRN (14:45)
[2024-12-20] MEDS ORDERED: fentaNYL 100 MCG/2 ML INJECTION IV PRN (14:45)
[2024-12-20] MEDS ORDERED: oxyCODONE 5MG TAB PO PRN (14:45)
[2024-12-20] MEDS ORDERED: HYDROMORPHONE HCL 0.5 MG/ 0.5 ML SYRINGE IV PRN (14:45)
[2024-12-20] MEDS: IBUPROFEN 400MG TAB PO PRN (20:44)
[2024-12-21] VITALS (22 sets, daily range): BP systolic 106–119; BP diastolic 50–56; PULSE 82; TEMP 98.5–98.8; O2SAT 92–99
[2024-12-21 07:09] LABS: CALCIUM LEVEL 8.3 MG/DL (8.3-10.6); CREATININE FOR GFR 0.89 MG/DL (0.70-1.30); GLOMERULAR FILTRATION RATE 89.4 (>42); POTASSIUM SERUM 3.9 MMOL/L (3.5-5.1)
[2024-12-21 07:30] LABS: HEMATOCRIT 34.5 % (42.0-52.0); HEMOGLOBIN 11.4 g/dl (13.5-17.5); MEAN CORPUSCULAR HEMOGLOBIN 32.4 pg (27.0-33.0); PLATELET COUNT, AUTOMATED 147 10^3/uL (150-450); RED BLOOD COUNT 3.52 10^6/uL (4.30-6.10)
[2024-12-21 08:07] LABS: ATYPICAL LYMPH 6 % (0-5); EOSINOPHILS 5 % (0-3); LYMPHOCYTES 38 % (16-44); METAMYELOCYTES 1 % (0-0); MONOCYTES 2 % (0-5); NEUTROPHILS 48 % (28-66)
[2024-12-21 08:08] LABS: PLATELET ESTIMATE NORMAL (NORMAL)
[2024-12-21] MEDS: DOCUSATE SOD LIQ 100MG/10ML UDC GT SCH (20:25)
[2024-12-21] MEDS: FINASTERIDE 5MG TAB PEG SCH (20:26)
[2024-12-21] MEDS: lamoTRIgine 100MG TAB PEG SCH (20:26)
[2024-12-21] MEDS: QUEtiapine FUMARATE 50MG TAB PEG SCH (20:27)
[2024-12-21] MEDS: SPIRONOLACTONE 25 MG TAB PEG SCH (20:29)
[2024-12-21] MEDS: CLORAZEPATE 3.75MG TAB PEG SCH (20:29)
[2024-12-21] MEDS: DOXEPIN 3 MG PEG SCH (21:00)
[2024-12-21] MEDS: TOPIRAMATE (TopAMAX) 100 MG TAB PEG SCH (21:39)
[2024-12-22] VITALS (27 sets, daily range): BP systolic 106–143; BP diastolic 53–80; PULSE 82; TEMP 97–98.7; O2SAT 91–99
[2024-12-22] MEDS: LEVOTHYROXINE 100MCG TABLET (0.1MG) PEG SCH (05:04)
[2024-12-22 06:50] LABS: CALCIUM LEVEL 8.5 MG/DL (8.3-10.6); CREATININE FOR GFR 1.02 MG/DL (0.70-1.30); GLOMERULAR FILTRATION RATE 76.7 (>42); MAGNESIUM LEVEL 2.2 MG/DL (1.8-2.4); POTASSIUM SERUM 3.9 MMOL/L (3.5-5.1)
[2024-12-22] MEDS: MIRALAX *UNIT DOSE* 17GM PACKET PEG SCH (09:50)
[2024-12-22] MEDS: PARoxetine 10MG/5ML SUSP ORAL SYRINGE *DRAW UP EXACT DOSE PEG SCH (09:51)
[2024-12-23] VITALS (21 sets, daily range): BP systolic 111–135; BP diastolic 54–70; TEMP 97–98.8; O2SAT 91–99
[2024-12-23 06:36] LABS: CALCIUM LEVEL 8.5 MG/DL (8.3-10.6); CREATININE FOR GFR 0.92 MG/DL (0.70-1.30); GLOMERULAR FILTRATION RATE 86.8 (>42); MAGNESIUM LEVEL 2.2 MG/DL (1.8-2.4)
[2024-12-23 16:48] LABS: URINE STREP PNEUMONIAE ANTIGEN NOT DETECTED (NOT DETECT)
[2024-12-23 21:27] LABS: MYCOPLASMA PNEUMONIAE IGG 1.11 (<=0.90)
[2024-12-24 03:50] VITALS: BP 136/65; TEMP 97.3; O2SAT 98
[2024-12-24 06:38] LABS: CREATININE FOR GFR 0.9 MG/DL (0.70-1.30); GLOMERULAR FILTRATION RATE 89.1 (>42); MAGNESIUM LEVEL 2.2 MG/DL (1.8-2.4); POTASSIUM SERUM 4.2 MMOL/L (3.5-5.1)
[2024-12-24 07:31] VITALS: BP 131/57; TEMP 97.6; O2SAT 97
[2024-12-24 16:00] VITALS: BP 139/60; TEMP 97.3; O2SAT 95
[2024-12-24 20:30] VITALS: BP 133/60; TEMP 97.9; O2SAT 94
[2024-12-24] MEDS: ACETAMINOPHEN 325 MG TAB PO PRN (20:36)
[2024-12-25 00:20] VITALS: BP 174/84; TEMP 97.7; O2SAT 97
[2024-12-25 03:13] VITALS: BP 117/53; TEMP 98.1; O2SAT 96
[2024-12-25 05:27] VITALS: O2SAT 96
[2024-12-25 06:31] LABS: CALCIUM LEVEL 9.1 MG/DL (8.3-10.6); CREATININE FOR GFR 0.88 MG/DL (0.70-1.30); GLOMERULAR FILTRATION RATE 89.7 (>42); MAGNESIUM LEVEL 2.2 MG/DL (1.8-2.4); POTASSIUM SERUM 4.4 MMOL/L (3.5-5.1)
[2024-12-25 08:00] VITALS: BP 157/72; TEMP 98.1; O2SAT 95
[2024-12-25 09:44] VITALS: BP 153/94
[2024-12-25 12:00] VITALS: BP 125/79; TEMP 98.8; O2SAT 89
[2024-12-26] VITALS (87 sets, daily range): BP systolic 78–167; BP diastolic 40–105; TEMP 96.6–102.4; O2SAT 86–100
[2024-12-26] MEDS: NS (Normal Saline) 0.9% 1,000 ML IV ONE ×2 (03:00→04:19)
[2024-12-26] MEDS: cefTRIAXone SOD 1 GM in DEXTROSE 5% (D5W) ADV/MINI-BAG 50 ML IV SCH (03:00)
[2024-12-26] MEDS ORDERED: methylPREDNISolone 125MG 2ML VIAL As Ordered ONE (03:01)
[2024-12-26 03:09] LABS: BASO % 0.5 % (0.0-1.0); HEMATOCRIT 47.2 % (42.0-52.0); HEMOGLOBIN 15.8 g/dl (13.5-17.5); LYMPH # 0.7 10^3/uL (1.5-5.0); LYMPH % 19.3 % (24.0-44.0); MEAN CORPUSCULAR HEMOGLOBIN 32.4 pg (27.0-33.0); MEAN CORPUSCULAR HGB CONC 33.5 g/dl (32.0-36.5); MEAN CORPUSCULAR VOLUME 96.9 fl (80.0-96.0); MONO # 0.3 10^3/uL (0.0-0.8); MONO % 8.4 % (2.0-8.0); NEUTROPHILS # 2.6 10^3/uL (1.5-8.5); NEUTROPHILS % 71.5 % (36.0-66.0); PLATELET COUNT, AUTOMATED 534 10^3/uL (150-450); RED BLOOD COUNT 4.87 10^6/uL (4.30-6.10); WHITE BLOOD COUNT 3.7 10^3/uL (4.0-10.0)
[2024-12-26] MEDS: methylPREDNISolone 125MG 2ML VIAL IV ONE (03:14)
[2024-12-26] MEDS: NOREPINEPHRINE 4MG IN D5 250ML 4 MG in IV 1 EA IV SCH (03:20)
[2024-12-26 03:28] LABS: ABG BASE EXCESS -8.8 (-2.0-2.0); ABG HCO3 13.5 MMOL/L (22.0-26.0); ABG O2 SATURATION 95.9 % (95.0-99.0); ABG PARTIAL PRESSURE CO2 22.4 mmHg (35.0-45.0); ABG PARTIAL PRESSURE O2 80.8 mmHg (75.0-100.0); ABG STANDARD HCO3 17.5 MMOL/L. (22.0-26.0); ABG TOTAL CO2 14.2 MMOL/L (23.0-31.0); ABG pH (ARTERIAL) 7.397 UNITS (7.350-7.450)
[2024-12-26 03:29] LABS: BLOOD UREA NITROGEN 30 MG/DL (9-23); CALCIUM LEVEL 9.5 MG/DL (8.3-10.6); CARBON DIOXIDE LEVEL 14 MMOL/L (20-31); CHLORIDE LEVEL 105 MMOL/L (98-107); CREATININE FOR GFR 1.86 MG/DL (0.70-1.30); GLOMERULAR FILTRATION RATE 37.3 (>42); GLUCOSE, FASTING 156 MG/DL (74-106); MAGNESIUM LEVEL 3.7 MG/DL (1.8-2.4); PHOSPHORUS LEVEL 2.3 MG/DL (2.4-5.1); POTASSIUM SERUM 5.8 MMOL/L (3.5-5.1); SODIUM LEVEL 135 MMOL/L (136-145)
[2024-12-26 03:29] LABS: ALBUMIN 2.7 G/DL (3.2-5.2); ALKALINE PHOSPHATASE 128 U/L (40-129); ALT/SGPT 17 U/L (7.0-40); AST/SGOT 33 U/L (<34); BILIRUBIN,TOTAL 0.4 MG/DL (0.3-1.2); BLOOD UREA NITROGEN 30 MG/DL (9-23); CALCIUM LEVEL 9.5 MG/DL (8.3-10.6); CARBON DIOXIDE LEVEL < 10.0 MMOL/L (20-31); CHLORIDE LEVEL 105 MMOL/L (98-107); CREATININE FOR GFR 1.73 MG/DL (0.70-1.30); GLOMERULAR FILTRATION RATE 40.7 (>42); GLUCOSE, FASTING 158 MG/DL (74-106); POTASSIUM SERUM 6.4 MMOL/L (3.5-5.1); SODIUM LEVEL 131 MMOL/L (136-145); TOTAL PROTEIN 6.7 G/DL (5.7-8.2)
[2024-12-26] MEDS: ACETAMINOPHEN *IV* 1,000 MG in IV 1 EA IV STA (03:34)
[2024-12-26 03:46] LABS: PROCALCITONIN >50.00 ng/ml
[2024-12-26] MEDS: DEXTROSE 50% 50ML SYRINGE IV STA (04:06)
[2024-12-26] MEDS: PIPERACILLIN/TAZOBACTAM SOD 3.375 GM in DEXTROSE 5% (D5W) ADV/MINI-BAG 50 ML IV ONE (04:15)
[2024-12-26] MEDS: AZITHROMYCIN INJ 500 MG, VIAL MATE ADAPTER 1 EACH in NS 250 ML IV SCH (04:17)
[2024-12-26] MEDS: HumuLIN R (REGULAR) INSULIN (NovoLIN R) **100U/ML** PER UNIT IV STA (04:29)
[2024-12-26] MEDS: LEVALBUTEROL 1.25 MG 0.5ML CONCENTRATE NEB NEB ONE (04:35)
[2024-12-26 04:46] LABS: CENTRAL VEN BASE EXCESS -10.8
[2024-12-26] MEDS: CALCIUM CHLORIDE 10% 1 GM in D5W 100 ML IV ONE (05:15)
[2024-12-26] MEDS: VANCOMYCIN HCL 1,000 MG, VIAL MATE ADAPTER 1 EACH in NS 250 ML IV ONE ×2 (05:58→17:11)
[2024-12-26] MEDS: LIDOCAINE 1% MDV 20ML VIAL SC STA (09:39)
[2024-12-26 10:49] LABS: CALCIUM LEVEL 10.3 MG/DL (8.3-10.6); CREATININE FOR GFR 1.81 MG/DL (0.70-1.30); GLOMERULAR FILTRATION RATE 38.5 (>42); POTASSIUM SERUM 4.5 MMOL/L (3.5-5.1)
[2024-12-26 12:19] LABS: HEMATOCRIT 44.3 % (42.0-52.0); HEMOGLOBIN 14.7 g/dl (13.5-17.5); MEAN CORPUSCULAR HEMOGLOBIN 32.9 pg (27.0-33.0); MEAN CORPUSCULAR HGB CONC 33.2 g/dl (32.0-36.5); MEAN CORPUSCULAR VOLUME 99.1 fl (80.0-96.0); PLATELET COUNT, AUTOMATED 438 10^3/uL (150-450); RED BLOOD COUNT 4.47 10^6/uL (4.30-6.10); WHITE BLOOD COUNT 4.3 10^3/uL (4.0-10.0)
[2024-12-26 12:43] LABS: CALCIUM LEVEL 10.1 MG/DL (8.3-10.6); CREATININE FOR GFR 1.86 MG/DL (0.70-1.30); GLOMERULAR FILTRATION RATE 37.3 (>42); POTASSIUM SERUM 4.6 MMOL/L (3.5-5.1)
[2024-12-26] MEDS: PIPERACILLIN/TAZOBACTAM SOD 3.375 GM in DEXTROSE 5% (D5W) ADV/MINI-BAG 50 ML IV SCH (12:47)
[2024-12-26] MEDS: HYDROCORTISONE 100MG/2ML VIAL IV SCH (12:51)
[2024-12-26] MEDS: SODIUM BICARBONATE 75 MEQ in NS 0.45% 1,000 ML IV SCH (14:23)
[2024-12-26 14:28] LABS: VANCOMYCIN RANDOM 11.7 UG/ML
[2024-12-26] MEDS ORDERED: VANCOMYCIN INTERMITTENT/PULSE DOSING BY CLINICAL PHARMACIST PER DOSING PROTOCOL XX SCH (15:35)
[2024-12-26] MEDS: PANTOPRAZOLE 40MG VIAL IV SCH (17:11)
[2024-12-26] MEDS: BUPivacaine LIPOSOME/PF 266MG 20ML VIAL (13.3MG/ML)(EXPAREL) As Ordered ONE (19:20)
[2024-12-26] MEDS ORDERED: MIDAZOLAM INJ 2MG/2ML VIAL As Ordered ONE (19:59)
[2024-12-26] MEDS ORDERED: METOCLOPRAMIDE INJ 10MG/2ML VIAL As Ordered ONE (19:59)
[2024-12-26] MEDS ORDERED: HYDROmorphone HCL 2MG/ML 1ML VIAL As Ordered ONE (19:59)
[2024-12-26] MEDS ORDERED: PHENYLEPHRINE 10MG/ML 1ML VIAL As Ordered ONE (19:59)
[2024-12-26] MEDS ORDERED: fentaNYL 250 MCG/5 ML INJECTION As Ordered ONE (19:59)
[2024-12-26] MEDS ORDERED: ETOMIDATE INJ 20MG/10ML VIAL As Ordered ONE (19:59)
[2024-12-26] MEDS ORDERED: SEVOFLURANE INHAL SOLN 250 ML BTL As Ordered ONE (20:51)
[2024-12-26] MEDS ORDERED: FENTANYL DRIP LOCK BOX KEY 1 EACH XX PRN (22:10)
[2024-12-26] MEDS: dexmedeTOMidine 200 MCG in IV 1 EA IV SCH (22:57)
[2024-12-26] MEDS: fentaNYL CITRATE/NaCl 1,000 MCG in IV 1 EA IV SCH (22:57)
[2024-12-27] VITALS (105 sets, daily range): BP systolic 74–145; BP diastolic 33–92; TEMP 95–100.9; O2SAT 80–100
[2024-12-27] MEDS: HYDROCORTISONE 100MG/2ML VIAL IV SCH (01:09)
[2024-12-27 05:41] LABS: HEMATOCRIT 34.3 % (42.0-52.0); HEMOGLOBIN 11.5 g/dl (13.5-17.5); MEAN CORPUSCULAR HEMOGLOBIN 32.8 pg (27.0-33.0); MEAN CORPUSCULAR HGB CONC 33.5 g/dl (32.0-36.5); MEAN CORPUSCULAR VOLUME 97.7 fl (80.0-96.0); PLATELET COUNT, AUTOMATED 357 10^3/uL (150-450); RED BLOOD COUNT 3.51 10^6/uL (4.30-6.10); WHITE BLOOD COUNT 3.9 10^3/uL (4.0-10.0)
[2024-12-27 06:23] LABS: ATYPICAL LYMPH 8 % (0-5); LYMPHOCYTES 13 % (16-44); METAMYELOCYTES 12 % (0-0); MONOCYTES 1 % (0-5); MYELOCYTES 13 % (0-0); NEUTROPHILS 26 % (28-66)
[2024-12-27 06:25] LABS: SPHEROCYTES 1+
[2024-12-27 06:27] LABS: BURR CELLS 1+
[2024-12-27 06:32] LABS: ALBUMIN 1.7 G/DL (3.2-5.2); BILIRUBIN,TOTAL 0.4 MG/DL (0.3-1.2); CALCIUM LEVEL 7.6 MG/DL (8.3-10.6); CREATININE FOR GFR 2.77 MG/DL (0.70-1.30); GLOMERULAR FILTRATION RATE 23.1 (>42); MAGNESIUM LEVEL 3.2 MG/DL (1.8-2.4); PHOSPHORUS LEVEL 6.8 MG/DL (2.4-5.1); POTASSIUM SERUM 5.6 MMOL/L (3.5-5.1); TOTAL PROTEIN 4.5 G/DL (5.7-8.2)
[2024-12-27 07:19] LABS: PLATELET ESTIMATE NORMAL (NORMAL)
[2024-12-27 09:04] LABS: VANCOMYCIN RANDOM 23.6 UG/ML
[2024-12-27] MEDS ORDERED: SODIUM CHLORIDE 0.9% 1000 ML CRRT SCH (09:25)
[2024-12-27] MEDS ORDERED: SODIUM CHLORIDE 0.9% INJ 10 ML SYR CRRT PRN ×2 (09:25)
[2024-12-27] MEDS ORDERED: HEPARIN 1,000UNITS/ML 10ML VIAL (FOR RADIOLOGY & DIALYSIS ONLY) CRRT PRN ×2 (09:25)
[2024-12-27] MEDS: VASOPRESSIN IN 0.9 % NACL 20 UNIT in IV 1 EA IV SCH (09:30)
[2024-12-27] MEDS ORDERED: PIPERACILLIN/TAZOBACTAM SOD 2.25 GM in DEXTROSE 5% (D5W) ADV/MINI-BAG 50 ML IV SCH (13:00)
[2024-12-27] MEDS ORDERED: **NOTE PATIENT COMMENT** MISC XX SCH (13:00)
[2024-12-27 13:06] LABS: HEMATOCRIT 30.3 % (42.0-52.0); HEMOGLOBIN 10.2 g/dl (13.5-17.5); MEAN CORPUSCULAR HEMOGLOBIN 32.2 pg (27.0-33.0); MEAN CORPUSCULAR HGB CONC 33.7 g/dl (32.0-36.5); MEAN CORPUSCULAR VOLUME 95.6 fl (80.0-96.0); PLATELET COUNT, AUTOMATED 327 10^3/uL (150-450); RED BLOOD COUNT 3.17 10^6/uL (4.30-6.10); WHITE BLOOD COUNT 5.5 10^3/uL (4.0-10.0)
[2024-12-27 13:18] LABS: INR 1.83; PARTIAL THROMBOPLASTIN TIME 42.5 SECONDS (24.8-34.2); PROTHROMBIN TIME 21.3 SECONDS (12.5-14.5)
[2024-12-27 13:43] LABS: CALCIUM LEVEL 7.4 MG/DL (8.3-10.6); CREATININE FOR GFR 3.22 MG/DL (0.70-1.30); GLOMERULAR FILTRATION RATE 19.3 (>42); POTASSIUM SERUM 5.6 MMOL/L (3.5-5.1)
[2024-12-27] MEDS: CALCIUM GLUCONATE 1,000 MG, VIAL MATE ADAPTER 1 EACH in NS 100 ML IV SCH ×2 (14:39→21:41)
[2024-12-27] MEDS: PIPERACILLIN/TAZOBACTAM SOD 4.5 GM in DEXTROSE 5% (D5W) ADV/MINI-BAG 50 ML IV SCH (14:52)
[2024-12-27] MEDS: **NOTE PATIENT COMMENT** MISC XX SCH (15:00)
[2024-12-27 20:19] LABS: ABG pH (ARTERIAL) 7.385 UNITS (7.350-7.450)
[2024-12-27 20:20] LABS: ABG BASE EXCESS -3.1 (-2.0-2.0); ABG HCO3 21.5 MMOL/L (22.0-26.0); ABG O2 SATURATION 97.3 % (95.0-99.0); ABG PARTIAL PRESSURE CO2 36.7 mmHg (35.0-45.0); ABG PARTIAL PRESSURE O2 98.1 mmHg (75.0-100.0); ABG STANDARD HCO3 21.9 MMOL/L. (22.0-26.0); ABG TOTAL CO2 22.6 MMOL/L (23.0-31.0)
[2024-12-27 20:21] LABS: HEMATOCRIT 29.3 % (42.0-52.0); HEMOGLOBIN 9.9 g/dl (13.5-17.5); IONIZED CALCIUM 4.2 MG/DL (4.5-5.3); MEAN CORPUSCULAR HEMOGLOBIN 32.4 pg (27.0-33.0); MEAN CORPUSCULAR HGB CONC 33.8 g/dl (32.0-36.5); MEAN CORPUSCULAR VOLUME 95.8 fl (80.0-96.0); PLATELET COUNT, AUTOMATED 298 10^3/uL (150-450); RED BLOOD COUNT 3.06 10^6/uL (4.30-6.10); WHITE BLOOD COUNT 5.9 10^3/uL (4.0-10.0)
[2024-12-27 20:36] LABS: INR 1.52; PARTIAL THROMBOPLASTIN TIME 45.4 SECONDS (24.8-34.2); PROTHROMBIN TIME 18.6 SECONDS (12.5-14.5)
[2024-12-27 20:58] LABS: CALCIUM LEVEL 7.8 MG/DL (8.3-10.6); CREATININE FOR GFR 2.04 MG/DL (0.70-1.30); GLOMERULAR FILTRATION RATE 33.4 (>42); MAGNESIUM LEVEL 2.6 MG/DL (1.8-2.4); PHOSPHORUS LEVEL 4.7 MG/DL (2.4-5.1); POTASSIUM SERUM 4.8 MMOL/L (3.5-5.1)
[2024-12-28] VITALS (63 sets, daily range): BP systolic 96–326; BP diastolic 47–312; TEMP 95.4–98.3; O2SAT 86–98
[2024-12-28 02:12] LABS: IONIZED CALCIUM 4.5 MG/DL (4.5-5.3)
[2024-12-28 02:15] LABS: HEMATOCRIT 28.2 % (42.0-52.0); HEMOGLOBIN 9.4 g/dl (13.5-17.5); MEAN CORPUSCULAR HEMOGLOBIN 32.1 pg (27.0-33.0); MEAN CORPUSCULAR HGB CONC 33.3 g/dl (32.0-36.5); MEAN CORPUSCULAR VOLUME 96.2 fl (80.0-96.0); PLATELET COUNT, AUTOMATED 230 10^3/uL (150-450); RED BLOOD COUNT 2.93 10^6/uL (4.30-6.10)
[2024-12-28 02:31] LABS: INR 1.44; PARTIAL THROMBOPLASTIN TIME 42.8 SECONDS (24.8-34.2); PROTHROMBIN TIME 17.8 SECONDS (12.5-14.5)
[2024-12-28 02:46] LABS: CALCIUM LEVEL 8.4 MG/DL (8.3-10.6); CREATININE FOR GFR 1.49 MG/DL (0.70-1.30); GLOMERULAR FILTRATION RATE 48.6 (>42); MAGNESIUM LEVEL 2.4 MG/DL (1.8-2.4); PHOSPHORUS LEVEL 4.4 MG/DL (2.4-5.1); POTASSIUM SERUM 4.2 MMOL/L (3.5-5.1)
[2024-12-28] MEDS: CALCIUM GLUCONATE 1,000 MG, VIAL MATE ADAPTER 1 EACH in NS 100 ML IV ONE ×2 (03:57→14:52)
[2024-12-28 07:25] LABS: IONIZED CALCIUM 4.3 MG/DL (4.5-5.3)
[2024-12-28 07:31] LABS: HEMATOCRIT 25.3 % (42.0-52.0); HEMOGLOBIN 8.2 g/dl (13.5-17.5); MEAN CORPUSCULAR HEMOGLOBIN 31.7 pg (27.0-33.0); MEAN CORPUSCULAR HGB CONC 32.4 g/dl (32.0-36.5); MEAN CORPUSCULAR VOLUME 97.7 fl (80.0-96.0); PLATELET COUNT, AUTOMATED 192 10^3/uL (150-450); RED BLOOD COUNT 2.59 10^6/uL (4.30-6.10); WHITE BLOOD COUNT 3.1 10^3/uL (4.0-10.0)
[2024-12-28 07:43] LABS: INR 1.42; PARTIAL THROMBOPLASTIN TIME 44.8 SECONDS (24.8-34.2); PROTHROMBIN TIME 17.6 SECONDS (12.5-14.5)
[2024-12-28 07:59] LABS: CALCIUM LEVEL 7.9 MG/DL (8.3-10.6); CREATININE FOR GFR 1.22 MG/DL (0.70-1.30); GLOMERULAR FILTRATION RATE 61.8 (>42); MAGNESIUM LEVEL 2.3 MG/DL (1.8-2.4); PHOSPHORUS LEVEL 3.8 MG/DL (2.4-5.1)
[2024-12-28] MEDS: CALCIUM GLUCONATE 1,000 MG in NS MINI-BAG PLUS 100 ML IV ONE (09:24)
[2024-12-28 13:29] LABS: HEMATOCRIT 23.7 % (42.0-52.0); HEMOGLOBIN 7.9 g/dl (13.5-17.5); MEAN CORPUSCULAR HEMOGLOBIN 31.9 pg (27.0-33.0); MEAN CORPUSCULAR HGB CONC 33.3 g/dl (32.0-36.5); MEAN CORPUSCULAR VOLUME 95.6 fl (80.0-96.0); PLATELET COUNT, AUTOMATED 179 10^3/uL (150-450); RED BLOOD COUNT 2.48 10^6/uL (4.30-6.10); WHITE BLOOD COUNT 2.6 10^3/uL (4.0-10.0)
[2024-12-28 13:42] LABS: INR 1.45; PARTIAL THROMBOPLASTIN TIME 54.6 SECONDS (24.8-34.2); PROTHROMBIN TIME 17.9 SECONDS (12.5-14.5)
[2024-12-28] MEDS: D5W 500 ML IV SCH (13:44)
[2024-12-28] MEDS ORDERED: D10W 1,000 ML IV SCH (14:00)
[2024-12-28 15:45] LABS: CALCIUM LEVEL 8.1 MG/DL (8.3-10.6); CREATININE FOR GFR 1.07 MG/DL (0.70-1.30); GLOMERULAR FILTRATION RATE 72.4 (>42); MAGNESIUM LEVEL 2.3 MG/DL (1.8-2.4); PHOSPHORUS LEVEL 3.2 MG/DL (2.4-5.1); POTASSIUM SERUM 3.8 MMOL/L (3.5-5.1)
[2024-12-28 17:29] LABS: HEMATOCRIT 26.8 % (42.0-52.0); HEMOGLOBIN 8.8 g/dl (13.5-17.5); MEAN CORPUSCULAR HEMOGLOBIN 31.3 pg (27.0-33.0); MEAN CORPUSCULAR HGB CONC 32.8 g/dl (32.0-36.5); MEAN CORPUSCULAR VOLUME 95.4 fl (80.0-96.0); PLATELET COUNT, AUTOMATED 208 10^3/uL (150-450); RED BLOOD COUNT 2.81 10^6/uL (4.30-6.10); WHITE BLOOD COUNT 2.9 10^3/uL (4.0-10.0)
[2024-12-28] MEDS: AMINO AC/ELECTROLYTE/DEX/CALC 2,000 ML IV SCH (17:47)
[2024-12-28] MEDS: FAT EMULSION IV 250 ML IV ONE (17:47)
[2024-12-28] MEDS: INSULIN LISPRO (NovoLOG) PER UNIT SC SCH (17:47)
[2024-12-28 18:01] LABS: ALBUMIN 1.5 G/DL (3.2-5.2); BILIRUBIN,DIRECT 0.2 MG/DL (<0.4); BILIRUBIN,TOTAL 0.3 MG/DL (0.3-1.2); TOTAL PROTEIN 4.4 G/DL (5.7-8.2)
[2024-12-28 18:14] LABS: ATYPICAL LYMPH 4 % (0-5); LYMPHOCYTES 32 % (16-44); METAMYELOCYTES 1 % (0-0); MONOCYTES 3 % (0-5); NEUTROPHILS 53 % (28-66)
[2024-12-28 18:15] LABS: PLATELET ESTIMATE NORMAL (NORMAL)
[2024-12-28] MEDS: PIPERACILLIN/TAZOBACTAM SOD 4.5 GM in DEXTROSE 5% (D5W) ADV/MINI-BAG 50 ML IV SCH (22:07)
[2024-12-29] VITALS (15 sets, daily range): BP systolic 110–149; BP diastolic 53–72; TEMP 97.2–99.3; O2SAT 86–100
[2024-12-29 05:33] LABS: BASO % 0.4 % (0.0-1.0); EOS % 0.7 % (0.0-3.0); HEMATOCRIT 27.8 % (42.0-52.0); LYMPH # 0.5 10^3/uL (1.5-5.0); LYMPH % 18.9 % (24.0-44.0); MEAN CORPUSCULAR HEMOGLOBIN 31.8 pg (27.0-33.0); MEAN CORPUSCULAR HGB CONC 32.4 g/dl (32.0-36.5); MEAN CORPUSCULAR VOLUME 98.2 fl (80.0-96.0); MONO # 0.2 10^3/uL (0.0-0.8); MONO % 6.4 % (2.0-8.0); NEUTROPHILS % 70.8 % (36.0-66.0); PLATELET COUNT, AUTOMATED 215 10^3/uL (150-450); RED BLOOD COUNT 2.83 10^6/uL (4.30-6.10); WHITE BLOOD COUNT 2.8 10^3/uL (4.0-10.0)
[2024-12-29 06:10] LABS: ALBUMIN 1.4 G/DL (3.2-5.2); ALKALINE PHOSPHATASE 78 U/L (40-129); ALT/SGPT 21 U/L (7.0-40); AST/SGOT 30 U/L (<34); BILIRUBIN,TOTAL 0.3 MG/DL (0.3-1.2); BLOOD UREA NITROGEN 25 MG/DL (9-23); CALCIUM LEVEL 8.4 MG/DL (8.3-10.6); CARBON DIOXIDE LEVEL 26 MMOL/L (20-31); CHLORIDE LEVEL 103 MMOL/L (98-107); CREATININE FOR GFR 1.77 MG/DL (0.70-1.30); GLOMERULAR FILTRATION RATE 39.6 (>42); GLUCOSE, FASTING 83 MG/DL (74-106); MAGNESIUM LEVEL 2.5 MG/DL (1.8-2.4); PHOSPHORUS LEVEL 3.3 MG/DL (2.4-5.1); POTASSIUM SERUM 4.2 MMOL/L (3.5-5.1); SODIUM LEVEL 137 MMOL/L (136-145); TOTAL PROTEIN 4.3 G/DL (5.7-8.2)
[2024-12-29] MEDS: HEPARIN SOD (PORCINE) 5000UNITS/ML 1ML VIAL/SYRINGE SQ SCH (06:28)
[2024-12-29] MEDS: ACETAMINOPHEN *IV* 1,000 MG in IV 1 EA IV SCH (11:51)
[2024-12-29 12:06] LABS: PROCALCITONIN >50.00 ng/ml
[2024-12-29] MEDS: SALIVA SUBSTITUTE(MOUTHKOTE) BTL MT PRN (13:48)
[2024-12-29] MEDS: INSULIN LISPRO (NovoLOG) PER UNIT SC SCH (18:00)
[2024-12-29] MEDS: FAT EMULSION IV 250 ML IV ONE (18:21)
[2024-12-29] MEDS: AMINO AC/ELECTROLYTE/DEX/CALC 2,000 ML IV SCH (18:21)
[2024-12-30 00:18] VITALS: BP 111/55; TEMP 97.8; O2SAT 100
[2024-12-30 05:08] VITALS: BP 108/51; TEMP 97.2; O2SAT 95
[2024-12-30 05:33] LABS: EOS % 1.1 % (0.0-3.0); HEMATOCRIT 28.6 % (42.0-52.0); HEMOGLOBIN 9.4 g/dl (13.5-17.5); LYMPH # 0.5 10^3/uL (1.5-5.0); LYMPH % 13.2 % (24.0-44.0); MEAN CORPUSCULAR HEMOGLOBIN 31.6 pg (27.0-33.0); MEAN CORPUSCULAR HGB CONC 32.9 g/dl (32.0-36.5); MEAN CORPUSCULAR VOLUME 96.3 fl (80.0-96.0); MONO # 0.3 10^3/uL (0.0-0.8); MONO % 9.6 % (2.0-8.0); NEUTROPHILS # 2.4 10^3/uL (1.5-8.5); NEUTROPHILS % 68.5 % (36.0-66.0); PLATELET COUNT, AUTOMATED 207 10^3/uL (150-450); RED BLOOD COUNT 2.97 10^6/uL (4.30-6.10); WHITE BLOOD COUNT 3.6 10^3/uL (4.0-10.0)
[2024-12-30 06:00] LABS: ALBUMIN 1.3 G/DL (3.2-5.2); ALKALINE PHOSPHATASE 168 U/L (40-129); ALT/SGPT 21 U/L (7.0-40); AST/SGOT 34 U/L (<34); BILIRUBIN,TOTAL 0.4 MG/DL (0.3-1.2); BLOOD UREA NITROGEN 42 MG/DL (9-23); CALCIUM LEVEL 8.5 MG/DL (8.3-10.6); CARBON DIOXIDE LEVEL 22 MMOL/L (20-31); CHLORIDE LEVEL 102 MMOL/L (98-107); CREATININE FOR GFR 2.73 MG/DL (0.70-1.30); GLOMERULAR FILTRATION RATE 23.5 (>42); GLUCOSE, FASTING 129 MG/DL (74-106); MAGNESIUM LEVEL 2.8 MG/DL (1.8-2.4); PHOSPHORUS LEVEL 3.7 MG/DL (2.4-5.1); POTASSIUM SERUM 4.7 MMOL/L (3.5-5.1); SODIUM LEVEL 136 MMOL/L (136-145); TOTAL PROTEIN 4.4 G/DL (5.7-8.2)
[2024-12-30 08:30] VITALS: BP 130/50; TEMP 98.7; O2SAT 98
[2024-12-30] MEDS ORDERED: SODIUM CHLORIDE 0.9% 1000 ML IV PRN (09:55)
[2024-12-30] MEDS ORDERED: HEPARIN 1,000UNITS/ML 10ML VIAL (FOR RADIOLOGY & DIALYSIS ONLY) IV PRN (09:55)
[2024-12-30] MEDS ORDERED: HEPARIN 1,000UNITS/ML 10ML VIAL (FOR RADIOLOGY & DIALYSIS ONLY) XX SCH (09:55)
[2024-12-30 10:07] LABS: PROCALCITONIN >50.00 ng/ml
[2024-12-30 12:24] VITALS: BP 112/62; TEMP 98.2; O2SAT 98
[2024-12-30] MEDS: HEPARIN 1,000UNITS/ML 10ML VIAL (FOR RADIOLOGY & DIALYSIS ONLY) XX SCH (13:58)
[2024-12-30 14:16] LABS: HEPATITIS B SURFACE ANTIBODY POSITIVE (POSITIVE)
[2024-12-30 14:28] LABS: HEPATITIS B SURFACE ANTIGEN NEGATIVE (NEGATIVE)
[2024-12-30 14:49] LABS: HEPATITIS B CORE ANTIBODY IGM NEGATIVE (NEGATIVE); HEPATITIS C VIRUS ABY INDEX 0.03 INDEX (<0.8)
[2024-12-30 14:55] LABS: C REACTIVE PROTEIN QUANTITATIV 21.02 MG/DL (<1.0)
[2024-12-30 15:39] LABS: C REACTIVE PROTEIN QUANTITATIV 31.18 MG/DL (<1.0)
[2024-12-30 15:40] LABS: C REACTIVE PROTEIN QUANTITATIV 49.22 MG/DL (<1.0)
[2024-12-30 15:40] LABS: C REACTIVE PROTEIN QUANTITATIV 40.51 MG/DL (<1.0)
[2024-12-30] MEDS: INSULIN LISPRO (NovoLOG) PER UNIT SC SCH (18:00)
[2024-12-30] MEDS: MULTIVITAMIN -ADULT INJECTION 10 ML, ZINC/COPPER/MANGANESE/SELENIUM 1 ML in AMINO AC/EL... IV SCH (18:44)
[2024-12-30] MEDS: FAT EMULSION IV 250 ML IV ONE (18:44)
[2024-12-30 20:26] VITALS: BP 112/57; TEMP 97.5; O2SAT 97
[2024-12-30 23:56] VITALS: BP 124/57; TEMP 97.8; O2SAT 98
[2024-12-31] VITALS (7 sets, daily range): BP systolic 112–143; BP diastolic 56–77; TEMP 97.4–99.2; O2SAT 93–97
[2024-12-31 05:29] LABS: HEMATOCRIT 27.4 % (42.0-52.0); MEAN CORPUSCULAR HEMOGLOBIN 31.7 pg (27.0-33.0); MEAN CORPUSCULAR HGB CONC 32.8 g/dl (32.0-36.5); MEAN CORPUSCULAR VOLUME 96.5 fl (80.0-96.0); PLATELET COUNT, AUTOMATED 197 10^3/uL (150-450); RED BLOOD COUNT 2.84 10^6/uL (4.30-6.10); WHITE BLOOD COUNT 6.5 10^3/uL (4.0-10.0)
[2024-12-31 05:57] LABS: ATYPICAL LYMPH 8 % (0-5); EOSINOPHILS 1 % (0-3); LYMPHOCYTES 9 % (16-44); MONOCYTES 10 % (0-5); NEUTROPHILS 70 % (28-66)
[2024-12-31 05:58] LABS: DOHLE BODIES 1+; PLATELET CLUMPS SMALL AMT; PLATELET ESTIMATE NORMAL (NORMAL)
[2024-12-31] MEDS ORDERED: LIDOCAINE 1% SDV 5ML VIAL SC PRN (06:00)
[2024-12-31] MEDS ORDERED: SODIUM CHLORIDE 0.9% 1000 ML IV PRN ×2 (06:00)
[2024-12-31] MEDS ORDERED: HEPARIN 1,000UNITS/ML 10ML VIAL (FOR RADIOLOGY & DIALYSIS ONLY) IV PRN ×2 (06:00)
[2024-12-31 06:13] LABS: ALBUMIN 1.3 G/DL (3.2-5.2); BILIRUBIN,TOTAL 0.4 MG/DL (0.3-1.2); C REACTIVE PROTEIN QUANTITATIV 21.13 MG/DL (<1.0); CALCIUM LEVEL 7.9 MG/DL (8.3-10.6); CREATININE FOR GFR 2.04 MG/DL (0.70-1.30); GLOMERULAR FILTRATION RATE 33.4 (>42); MAGNESIUM LEVEL 2.2 MG/DL (1.8-2.4); PHOSPHORUS LEVEL 2.9 MG/DL (2.4-5.1); POTASSIUM SERUM 3.4 MMOL/L (3.5-5.1); TOTAL PROTEIN 4.3 G/DL (5.7-8.2)
[2024-12-31] MEDS ORDERED: MEROPENEM INJ 1 GM in IV 1 EA IV SCH (07:10)
[2024-12-31] MEDS: MEROPENEM INJ 500 MG in IV 1 EA IV ONE (07:51)
[2024-12-31] MEDS: HEPARIN 1,000UNITS/ML 10ML VIAL (FOR RADIOLOGY & DIALYSIS ONLY) XX SCH (10:38)
[2024-12-31] MEDS: KCL 10MEQ/100ML SWI (KRUN) 10 MEQ in IV 1 EA IV SCH (13:21)
[2024-12-31] MEDS ORDERED: KCL 10MEQ IN STERILE WATER 100ML As Ordered ONE (14:35)
[2024-12-31] MEDS: FLUCONAZOLE 200 MG in IV 1 EA IV SCH (15:51)
[2024-12-31] MEDS: MEROPENEM INJ 500 MG in IV 1 EA IV SCH (17:02)
[2024-12-31] MEDS: INSULIN LISPRO (NovoLOG) PER UNIT SC SCH (17:07)
[2024-12-31] MEDS: FAT EMULSION IV 250 ML IV ONE (17:45)
[2024-12-31] MEDS: AMINO AC/ELECTROLYTE/DEX/CALC 2,000 ML IV SCH (17:45)
[2025-01-01] VITALS (7 sets, daily range): BP systolic 130–154; BP diastolic 58–72; TEMP 97–101.3; O2SAT 92–100
[2025-01-01 05:09] LABS: BASO % 0.4 % (0.0-1.0); EOS # 0.1 10^3/uL (0.0-0.5); EOS % 1.1 % (0.0-3.0); HEMATOCRIT 28.7 % (42.0-52.0); HEMOGLOBIN 9.5 g/dl (13.5-17.5); LYMPH # 0.9 10^3/uL (1.5-5.0); MEAN CORPUSCULAR HEMOGLOBIN 32.1 pg (27.0-33.0); MEAN CORPUSCULAR HGB CONC 33.1 g/dl (32.0-36.5); MONO # 0.7 10^3/uL (0.0-0.8); MONO % 6.3 % (2.0-8.0); NEUTROPHILS % 67.2 % (36.0-66.0); PLATELET COUNT, AUTOMATED 206 10^3/uL (150-450); RED BLOOD COUNT 2.96 10^6/uL (4.30-6.10); WHITE BLOOD COUNT 10.3 10^3/uL (4.0-10.0)
[2025-01-01 05:16] LABS: ALBUMIN 1.3 G/DL (3.2-5.2); BILIRUBIN,TOTAL 0.3 MG/DL (0.3-1.2); CALCIUM LEVEL 7.5 MG/DL (8.3-10.6); CREATININE FOR GFR 1.97 MG/DL (0.70-1.30); GLOMERULAR FILTRATION RATE 34.8 (>42); MAGNESIUM LEVEL 2.1 MG/DL (1.8-2.4); PHOSPHORUS LEVEL 2.5 MG/DL (2.4-5.1); POTASSIUM SERUM 3.3 MMOL/L (3.5-5.1); TOTAL PROTEIN 4.3 G/DL (5.7-8.2)
[2025-01-01 05:41] LABS: C REACTIVE PROTEIN QUANTITATIV 21.62 MG/DL (<1.0)
[2025-01-01] MEDS: KCL 20MEQ IN 100ML SWI (KRUN) 20 MEQ in IV 1 EA IV SCH (09:16)
[2025-01-01 15:47] LABS: CLOSTRIDIUM DIFFICILE PCR NEGATIVE (NEGATIVE)
[2025-01-01] MEDS: FAT EMULSION IV 250 ML IV ONE (17:40)
[2025-01-01] MEDS: MULTIVITAMIN -ADULT INJECTION 10 ML, ZINC/COPPER/MANGANESE/SELENIUM 1 ML in AMINO AC/EL... IV SCH (17:41)
[2025-01-01] MEDS: INSULIN LISPRO (NovoLOG) PER UNIT SC SCH (17:41)
[2025-01-01] MEDS: ACETAMINOPHEN 325MG/10.15ML UDC GT PRN (21:44)
[2025-01-02 00:05] VITALS: BP 112/53; TEMP 100.9; O2SAT 100
[2025-01-02 03:44] VITALS: BP 131/62; TEMP 99.7; O2SAT 95
[2025-01-02 05:48] LABS: BASO # 0.1 10^3/uL (0.0-0.2); BASO % 0.4 % (0.0-1.0); EOS # 0.1 10^3/uL (0.0-0.5); EOS % 0.8 % (0.0-3.0); HEMATOCRIT 30.2 % (42.0-52.0); HEMOGLOBIN 9.9 g/dl (13.5-17.5); LYMPH # 0.9 10^3/uL (1.5-5.0); LYMPH % 7.5 % (24.0-44.0); MEAN CORPUSCULAR HGB CONC 32.8 g/dl (32.0-36.5); MEAN CORPUSCULAR VOLUME 97.7 fl (80.0-96.0); MONO # 0.7 10^3/uL (0.0-0.8); MONO % 6.4 % (2.0-8.0); NEUTROPHILS # 7.6 10^3/uL (1.5-8.5); NEUTROPHILS % 66.8 % (36.0-66.0); PLATELET COUNT, AUTOMATED 205 10^3/uL (150-450); RED BLOOD COUNT 3.09 10^6/uL (4.30-6.10); WHITE BLOOD COUNT 11.4 10^3/uL (4.0-10.0)
[2025-01-02] MEDS ORDERED: SODIUM CHLORIDE 0.9% 1000 ML IV PRN (06:00)
[2025-01-02] MEDS ORDERED: HEPARIN 1,000UNITS/ML 10ML VIAL (FOR RADIOLOGY & DIALYSIS ONLY) IV PRN (06:00)
[2025-01-02 06:38] LABS: ALBUMIN 1.3 G/DL (3.2-5.2); BILIRUBIN,TOTAL 0.3 MG/DL (0.3-1.2); C REACTIVE PROTEIN QUANTITATIV 22.58 MG/DL (<1.0); CALCIUM LEVEL 7.8 MG/DL (8.3-10.6); CREATININE FOR GFR 2.77 MG/DL (0.70-1.30); GLOMERULAR FILTRATION RATE 23.1 (>42); MAGNESIUM LEVEL 2.4 MG/DL (1.8-2.4); PHOSPHORUS LEVEL 4.2 MG/DL (2.4-5.1); POTASSIUM SERUM 4.2 MMOL/L (3.5-5.1); TOTAL PROTEIN 4.6 G/DL (5.7-8.2)
[2025-01-02 07:45] VITALS: BP 129/60; TEMP 99.4; O2SAT 18; O2SAT 94
[2025-01-02] MEDS ORDERED: ISOVUE-370 76% 100ML VIAL As Ordered ONE (08:27)
[2025-01-02] MEDS: HEPARIN 1,000UNITS/ML 10ML VIAL (FOR RADIOLOGY & DIALYSIS ONLY) XX SCH (14:20)
[2025-01-02 16:05] VITALS: BP 132/63; TEMP 98.9; O2SAT 94
[2025-01-02] MEDS ORDERED: INSULIN LISPRO (NovoLOG) PER UNIT SC SCH (18:00)
[2025-01-02] MEDS ORDERED: AMINO AC/ELECTROLYTE/DEX/CALC 2,000 ML IV SCH (18:00)
[2025-01-02] MEDS ORDERED: FAT EMULSION IV 250 ML IV ONE (18:00)
[2025-01-02 19:35] VITALS: BP 112/57; TEMP 97.4; O2SAT 98
== END 2025-01-02 20:18 | disposition short-term general hospital (02) | DRG 853 ==
LOC: EDBD 15:26 → M ED 15:26 → M ED INP 21:03 → M PCU 12-17 15:43 → M MSPAV 12-24 15:44 → M ICU 12-26 02:25 → M PCU 12-29 17:53
PROVIDERS: ADMIT Student in an Organized Health Care Education/Training Program; ATTEND Internal Medicine
PROC: 0DH64UZ Insertion of Feeding Device into Stomach, Percutaneous Endoscopic Approach (ICD-10-PCS; 2024-12-20)
PROC: 0DJ08ZZ Inspection of Upper Intestinal Tract, Via Natural or Artificial Opening Endoscopic (ICD-10-PCS; 2024-12-20)
PROC: 05HM03Z Insertion of Infusion Device into Right Internal Jugular Vein, Open Approach (ICD-10-PCS; 2024-12-26)
PROC: 02HV33Z Insertion of Infusion Device into Superior Vena Cava, Percutaneous Approach (ICD-10-PCS; 2024-12-26)
PROC: 0D160Z9 Bypass Stomach to Duodenum, Open Approach (ICD-10-PCS; principal; 2024-12-26 18:55)
PROC: 04HK03Z Insertion of Infusion Device into Right Femoral Artery, Open Approach (ICD-10-PCS; 2024-12-27)
PROC: 5A1D70Z Performance of Urinary Filtration, Intermittent, Less than 6 Hours Per Day (ICD-10-PCS; 2024-12-30)
DX: A41.9 Sepsis, unspecified organism (principal); J69.0 Pneumonitis due to inhalation of food and vomit; R65.21 Severe sepsis with septic shock; K65.9 Peritonitis, unspecified; J96.01 Acute respiratory failure with hypoxia; N17.0 Acute kidney failure with tubular necrosis; N39.0 Urinary tract infection, site not specified; D61.818 Other pancytopenia; J44.0 Chronic obstructive pulmonary disease with (acute) lower respiratory infection; E87.20 Acidosis, unspecified; K94.23 Gastrostomy malfunction; I10 Essential (primary) hypertension; E78.5 Hyperlipidemia, unspecified; G40.909 Epilepsy, unspecified, not intractable, without status epilepticus; R13.12 Dysphagia, oropharyngeal phase; F79 Unspecified intellectual disabilities; N40.0 Benign prostatic hyperplasia without lower urinary tract symptoms; H40.9 Unspecified glaucoma; M19.90 Unspecified osteoarthritis, unspecified site; Z87.891 Personal history of nicotine dependence; M81.0 Age-related osteoporosis without current pathological fracture; K59.00 Constipation, unspecified; R29.6 Repeated falls; G47.33 Obstructive sleep apnea (adult) (pediatric); E03.9 Hypothyroidism, unspecified; D50.9 Iron deficiency anemia, unspecified; Z88.8 Allergy status to other drugs, medicaments and biological substances; Z79.899 Other long term (current) drug therapy; E87.6 Hypokalemia; D69.6 Thrombocytopenia, unspecified; R63.39 Other feeding difficulties